=== PATIENT | female | born 1935 | race Caucasian/White ===

== ENCOUNTER 2016-06-30 11:08 | Day surgery (SDC) | payer MEDICARE, BC ==
[2016-06-22 15:39] VITALS: BMI 26.1
[~2016-06-30 11:08] MED LIST: FAMOTIDINE 20 MG/2 ML VIAL IV PRN; HYDROmorphone 1 MG/ML 1 ML SYRINGE IVP PRN; LACTATED RINGERS 1,000 ML IV SCH; LIDOCAINE 1% 20 ML VIAL (10MG/ML) FOR IV START INTRADERMA PRN; ceFAZolin 2 GM in SODIUM CHLORIDE 0.9% 100 ML IVPB ONE
--- NOTE | 2016-06-30 11:12 | XR ---
Abdomen HISTORY: Calculus of ureter Frontal view of the abdomen correlated to prior exam I've May 2016 Double-J left ureteral stent is in place as on prior exam. Calcifications are again scattered over th e right kidney, left kidney, within the pelvis and in the right paraspinal location. There may been i nterval lithotripsy, large calculus at the level of the distal left ureter is no longer seen, only sm all residual calcification is present measuring approximately 3 to 4 mm at the level of the distal le ft ureter. Surgical clips in the upper abdomen. IMPRESSION: Interval follow-up is described.
[2016-06-30] MEDS ORDERED: LACTATED RINGERS 1,000 ML IV ONE (11:14)
[2016-06-30 11:33] VITALS: RESP 16
[2016-06-30] MEDS ORDERED: SODIUM CHLORIDE 0.9% 100 ML BAG IV ONE (12:58)
[2016-06-30] MEDS ORDERED: ePHEDrine 50 MG/ML 1 ML AMP ONE (12:58)
[2016-06-30] MEDS ORDERED: PROPOFOL 10 MG/ML 20 ML VIAL IV ONE (12:58)
[2016-06-30] MEDS ORDERED: MIDAZOLAM 2 MG/2 ML VIAL ONE (12:58)
[2016-06-30] MEDS ORDERED: ceFAZolin 1,000 MG VIAL ONE (12:58)
[2016-06-30] MEDS ORDERED: fentaNYL (PF) 50 MCG/ML 2 ML AMP ONE (12:58)
[2016-06-30] MEDS ORDERED: LIDOCAINE 1% INJ 10MG/ML (20 ML MDV) ONE (12:58)
[2016-06-30] MEDS ORDERED: GLYCOPYRROLATE 0.2 MG/ML 2 ML VIAL ONE (12:58)
[2016-06-30] MEDS ORDERED: SUCCINYLCHOLINE CHLORIDE 100 MG/5 ML SYR IV ONE (12:58)
[2016-06-30 13:51] VITALS: TEMP 98.1
--- NOTE | 2016-06-30 14:17 | P.OP ---
Date of Procedure: 06/30/16 Preoperative Diagnosis: Left ureteral calculus, left renal calculus Postoperative Diagnosis: Left ureteral calculus, passed. Procedure(s) Performed: Cystoscopy, left ureteral stent removal, left ureteroscopy Anesthesia: DO Surgeon: Parth Chavez Estimated Blood Loss (ml): 0 IV fluids (ml): 500 Pathology: none sent Condition: stable Disposition: PACU Indications for Procedure: She was recently hospitalized with Escherichia coli sepsis of urinary origin, and was found to have 2 obstructing left distal ureteral calculi. She underwent placement of a left ureteral stent, at which time only one calculus was seen. A repeat urine culture was sent. She will undergo ureteroscopic removal of her calculi. Operative Findings: The patient was taken to the operating room and placed in the dorsolithotomy position, with legs supported in Fernando stirrups. The external genitalia was prepped and draped sterilely. The 30 lens was used to introduce the 22-Samoan Stortz cystoscopic sheath through the urethra and into the bladder under direct vision. The bladder was examined in its entirety. No tumors or foreign bodies were seen. Grasping forceps were used to grasp the distal end of the left ureteral stent, which was removed along with the cystoscope. The [facility] semirigid ureteroscope was advanced into the bladder. The left ureteral orifice was cannulated, and the ureteroscope was advanced up to the left proximal ureter. No calculi were seen. The ureter was inspected as the ureteroscope was withdrawn and removed. Next, the mini flexible Olympus ureteroscope was advanced in the bladder, and the left ureteral orifice was cannulated. The ureteroscope was advanced up to the left renal pelvis under direct vision. Each calyx was examined. No calculi were seen. Within several calyces, calcifications were noted which were adherent to the mucosa. The ureteroscope was slowly withdrawn under direct vision, and the procedure was terminated. The patient tolerated the procedure well and was taken to the recovery room in stable condition. Description of Procedure: The patient was taken to the operating room and placed in the dorsolithotomy position, with legs supported in Fernando stirrups. The external genitalia was prepped and draped sterilely. The 30 lens was used to introduce the 22-Samo[place] Stortz cystoscopic sheath through the urethra and into the bladder under direct vision. The bladder was examined in its entirety. No tumors or foreign bodies were seen. Grasping forceps were used to grasp the distal end of the left ureteral stent, which was removed along with the cystoscope. The ACMI semirigid ureteroscope was advanced into the bladder. The left ureteral orifice was cannulated, and the ureteroscope was advanced up to the left proximal ureter. No calculi were seen. The ureter was inspected as the ureteroscope was withdrawn and removed. Next, the mini flexible Olympus ureteroscope was advanced in the bladder, and the left ureteral orifice was cannulated. The ureteroscope was advanced up to the left renal pelvis under direct vision. Each calyx was examined. No calculi were seen. Within several calyces, calcifications were noted which were adherent to the mucosa. The ureteroscope was slowly withdrawn under direct vision, and the procedure was terminated. The patient tolerated the procedure well and was taken to the recovery room in stable condition.
[2016-06-30 14:54] VITALS: BP 152/83; PULSE 79
== END 2016-06-30 15:12 | disposition home or self-care (01) ==
LOC: OR 11:08
PROVIDERS: ATTEND Urology
DX: N20.2 Calculus of kidney with calculus of ureter (principal); Z46.6 Encounter for fitting and adjustment of urinary device; I10 Essential (primary) hypertension; I48.91 Unspecified atrial fibrillation; Z79.01 Long term (current) use of anticoagulants; K21.9 Gastro-esophageal reflux disease without esophagitis; Z88.1 Allergy status to other antibiotic agents; Z91.040 Latex allergy status; Z80.52 Family history of malignant neoplasm of bladder; Z80.8 Family history of malignant neoplasm of other organs or systems; Z87.891 Personal history of nicotine dependence; E03.9 Hypothyroidism, unspecified
CPT/HCPCS: 74000; 52310; J2250; J0690; J2001; J3010; J0330; J2704

== ENCOUNTER → 2016-08-11 | Outpatient (CLI) | payer MEDICARE, BC ==
--- NOTE | 2016-08-11 17:00 | US ---
EXAMINATION TYPE: US kidneys/renal and bladder DATE OF EXAM: 08/11/2016 3:48 PM COMPARISON: 06/30/2016 KUB CLINICAL HISTORY: R93.4 History of Hydronephrosis. 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 No shadowing stones are evident. Right Kidney: No hydronephrosis or masses seen Left Kidney: No hydronephrosis or masses seen Bladder: wnl Bilateral Jets seen: Yes IMPRESSION: Normal bilateral renal ultrasound. Previous reported renal calcifications are not identified on the c urrent examination.
== END | disposition home or self-care (01) ==
LOC: RADUSWWP 15:31
PROVIDERS: ATTEND Urology
DX: Z09 Encounter for follow-up examination after completed treatment for conditions other than malignant neoplasm (principal); Z87.448 Personal history of other diseases of urinary system
CPT/HCPCS: 76770

== ENCOUNTER → 2016-12-07 | Outpatient (CLI) | payer MEDICARE, BC ==
--- NOTE | 2016-12-07 15:43 | US ---
EXAMINATION TYPE: US pelvis complete transvag DATE OF EXAM: 12/07/2016 COMPARISON: NONE CLINICAL HISTORY: R10.2 PELVIC PAIN. Patient states having vaginal soreness, hx of bladder incontinen ce. TECHNIQUE: Transvaginal (TV) and Transabdominal (TA) Date of LMP: PM, EXAM MEASUREMENTS: Uterus: 7.3 x 4.5 x 2.6 cm Endometrial Stripe: 0.1 cm 1. Uterus: Peripheral echogenic foci seen. Heterogenous. Anteverted. 2. Endometrium: Fluid seen within canal. Shadowing echogenic focus seen = 1.2 x 0.8 x 0.5 cm 3. Right Ovary: Obscured by overlying bowel gas 4. Left Ovary: Obscured by overlying bowel gas Spectral, color and waveform doppler imaging shows good arterial and venous flow within the ovaries ; there is no evidence for ovarian torsion. 5. Bilateral Adnexa: wnl 6. Posterior cul-de-sac: no free fluid seen Incidental finding = Posterior hypoechoic lesion seen = 0.9 x 0.8 x 0.9 cm. IMPRESSION: 1. Hypoechoic area within the posterior urinary bladder could be a ureterocele. 2. Endometrial canal fluid.
== END | disposition home or self-care (01) ==
LOC: RADUSWWP 10:04
PROVIDERS: ATTEND Obstetrics & Gynecology
DX: R10.2 Pelvic and perineal pain (principal)
CPT/HCPCS: 76830; 76856

== ENCOUNTER → 2017-01-06 | Outpatient (CLI) | payer MEDICARE, BC ==
--- NOTE | 2017-01-07 09:36 | MM ---
Reason for exam: screening (asymptomatic). Last mammogram was performed 1 year ago. History: Patient is postmenopausal and has history of high-risk lesion on a previous biopsy at age 69. Excisional biopsy of the left breast, February 19, 2005. High risk left mammotome panel of the left breast, January 08, 2005. High risk left mammotome panel of the left breast, January 08, 2005. Cyst aspiration of the right breast. Physical Findings: A clinical breast exam by your physician is recommended on an annual basis and results should be correlated with mammographic findings. MG 3D Screening Mammo W/Cad Bilateral CC and MLO view(s) were taken. Prior study comparison: January 06, 2016, bilateral MG 3d diag mammo w/cad PB. April 22, 2014, bilateral MG screening mammo w CAD. The breast tissue is heterogeneously dense. This may lower the sensitivity of mammography. Finding: There are typically benign calcifications in both breasts. There is a chronic nodularity in the right breast. No significant changes in finding since January 06, 2016 and April 22, 2014. ASSESSMENT: Benign, BI-RAD 2 RECOMMENDATION: Routine screening mammogram of both breasts in 1 year.
== END | disposition home or self-care (01) ==
LOC: RADMAMWWP 08:14
PROVIDERS: ATTEND Obstetrics & Gynecology
DX: Z12.31 Encounter for screening mammogram for malignant neoplasm of breast (principal)
CPT/HCPCS: 77063; G0202

== ENCOUNTER 2017-04-08 11:21 | Emergency (ER) | payer MEDICARE, BC ==
[2017-04-08 11:32] VITALS: RESP 18
--- NOTE | 2017-04-08 12:19 | ED ---
General Adult HPI - General Chief complaint: Fall Stated complaint: FALL FROM STEP LADDER, 2ND STEP Time Seen by Provider: 04/08/17 11:54 Source: patient, family, RN notes reviewed Mode of arrival: wheelchair Limitations: physical limitation - History of Present Illness Initial comments: Patient is a pleasant 81-year-old female presenting to the emergency department following a fall. Incident occurred yesterday around 10:30 AM. Patient was on the second foot of a stepladder cleaning the refrigerator. Patient did slip and fall. Patient did grab a hold of the door on the way down. Patient landed mostly on her back. Patient has discomfort of her back diffusely, mostly lower back. Patient does have some chronic back and neck problems. Patient denies any head injury or loss of consciousness. No headache. No extremity injury. No chest pain or dyspnea. No abdominal pain. - Related Data Home Medications Medication Instructions Recorded Confirmed Cyanocobalamin [Vitamin B-12] 1,000 mcg PO DAILY@1200 03/10/16 04/08/17 Pantoprazole Sodium [Protonix] 40 mg PO DAILY 03/10/16 04/08/17 Cholecalciferol [Vitamin D3] 1,000 unit PO DAILY@1200 04/08/17 04/08/17 Gabapentin [Neurontin] 300 mg PO HS 04/08/17 04/08/17 Levothyroxine Sodium [Synthroid] 88 mcg PO DAILY 04/08/17 04/08/17 Magnesium 200 mg PO DAILY@1200 04/08/17 04/08/17 Meloxicam [Mobic] 15 mg PO DAILY@1200 04/08/17 04/08/17 predniSONE 2.5 mg PO DAILY 04/08/17 04/08/17 Previous Rx's Medication Instructions Recorded Apixaban [Eliquis] 2.5 mg PO BID #0 tablet 06/03/16 Metoprolol Tartrate [Lopressor] 25 mg PO BID tab 06/03/16 Allergies Allergy/AdvReac Type Severity Reaction Status Date / Time adhesive Allergy Severe Rash/Hives Verified 04/08/17 11:56 latex Allergy Severe Rash/Hives Verified 04/08/17 11:56 levofloxacin [From Levaquin] AdvReac Severe Nausea & Verified 04/08/17 11:56 Vomiting & Diarrhea sulfamethoxazole AdvReac Mild Nausea & Verified 04/08/17 11:56 [From Bactrim] Vomiting trimethoprim [From Bactrim] AdvReac Mild Nausea & Verified 04/08/17 11:56 Vomiting Review of Systems ROS Statement: Those systems with pertinent positive or pertinent negative responses have been documented in the HPI. ROS Other: All systems not noted in ROS Statement are negative. Constitutional: Denies: fever Eyes: Denies: eye pain ENT: Denies: ear pain Respiratory: Denies: cough, dyspnea Cardiovascular: Denies: chest pain Endocrine: Denies: fatigue Gastrointestinal: Denies: abdominal pain Genitourinary: Denies: dysuria Musculoskeletal: Reports: back pain Skin: Denies: rash Neurological: Denies: weakness Past Medical History Past Medical History: Atrial Fibrillation Additional Past Medical History / Comment(s): History of nephrolithiasis and kidney stones, history of recurrent urine tract infections, history of E. coli septicemia back in February 2016, urinary incontinence, spinal stenosis, degenerative arthritis, chronic back pain, bilateral leg and feet pain with L side worse, varicose veins, diverticullosis/diverticulitis, previous exposure to ESBL producing E. coli from May 2015, paroxysmal to fibrillation current rhythm is sinus, hypertension, severe back pain and degenerative arthritis, chronic steroid dependence and the patient has been taking prednisone a daily basis at a dose of 10 mg. History of Any Multi-Drug Resistant Organisms: ESBL Date of last positivie culture/infection: ESBL 06/12/15 MDRO Source:: urine Past Surgical History: Breast Surgery, Cholecystectomy, Orthopedic Surgery Additional Past Surgical History / Comment(s): cystoscopy with coaptite injections x 2, lithrotripsy, hemmoroidectomy, bilateral cataract with lense implants , varicose vein surgery, D&C, L breast biopsy x 2, bilateral great toenails removed, carpal tunnel release R wrist, R knee arthroscopy, lipomas removed from L leg. Past Anesthesia/Blood Transfusion Reactions: No Reported Reaction Past Psychological History: No Psychological Hx Reported Smoking Status: Former smoker Past Alcohol Use History: Occasional Past Drug Use History: None Reported - Past Family History Brother(s) History Unknown: Yes Family Medical History: Cancer Sister(s) Family Medical History: Deep Vein Thrombosis (DVT) Additional Family Medical History / Comment(s): DVT IN GROIN Mother Family Medical History: No Reported History Father History Unknown: Yes Family Medical History: Unable to Obtain Additional Family Medical History / Comment(s): Pt did not know her biological father. General Exam Limitations: physical limitation General appearance: alert, in no apparent distress Head exam: Present: atraumatic, normocephalic Eye exam: Present: normal appearance, PERRL, EOMI ENT exam: Present: normal oropharynx Neck exam: Present: normal inspection, full ROM, other (Mild paravertebral tenderness. No vertebral tenderness to palpation.) Respiratory exam: Present: normal lung sounds bilaterally. Absent: chest wall tenderness Cardiovascular Exam: Present: regular rate, normal rhythm GI/Abdominal exam: Present: soft. Absent: tenderness Extremities exam: Present: normal inspection, full ROM. Absent: tenderness Back exam: Present: tenderness (Mild lower thoracic tenderness to palpation. Moderate lumbar spinal tenderness to palpation.), vertebral tenderness Neurological exam: Present: alert, CN II-XII intact. Absent: motor sensory deficit Expanded Sensory exam: Lower Extremity Light Touch: Normal Motor strength exam: RUE: 5, LUE: 5, RLE: 5, LLE: 5 Psychiatric exam: Present: normal affect, normal mood Skin exam: Present: normal color Course Vital Signs 04/08/17 04/08/17 04/08/17 11:26 12:31 14:11 Temperature 97.7 F 97.8 F Pulse Rate 56 L 59 L Pulse Rate [ 56 L Pulse Oximetery ] Respiratory 18 18 Rate Blood Pressure 130/65 174/79 O2 Sat by Pulse 96 98 Oximetry EKG Findings - EKG Comments: EKG Findings:: Sinus bradycardia 53. WI 186. QRS 80. QT 416. QTC 390. Normal axis. Normal QRS. Normal ST-T. Medical Decision Making - Medical Decision Making Patient reevaluated and resting comfortably in bed. Patient still refuses any pain medication or prescription. Patient and family were updated on results and plan. Case was discussed in detail with practitioner Natasha garcias for [facility]. She does recommend TLSO brace and have patient follow- up with Dr. Vargas in the beginning of the week. - Radiology Data Radiology results: image reviewed (Cervical spine and thoracic spine x-rays show degenerative changes without acute abnormality. Computed tomography scan of the lumbar spine shows L1 and L2 superior endplate fractures. No acute subluxation.) Disposition Clinical Impression: Fall, Fracture lumbar vertebra-closed Disposition: HOME SELF-CARE Condition: Stable Instructions: Fall Prevention for Older Adults (ED), Thoracolumbar Fracture (ED ) Additional Instructions: Please follow-up with Dr. Vargas with [facility] as well as her primary care physician in the beginning of the week. Limit exercise. Wear brace at all times unless showering, prescription written. No lifting. Bed rest except for meals and bathroom use through the weekend. Return for weakness , loss of control of bowel or bladder, worsening symptoms or other concerns. [id number] Tylenol if needed. Referrals: Keith Yadav MD [Primary Care Provider] - 1-2 days Time of Disposition: 14:17
--- NOTE | 2017-04-08 13:18 | CT ---
EXAMINATION TYPE: CT lumbar spine wo con DATE OF EXAM: 04/08/2017 COMPARISON: Prior lumbar spine CT 06/10/2015 HISTORY: Trauma and pain CT DLP: 634.6 mGycm Automated exposure control for dose reduction was used. An unenhanced CT of the lumbar spine was performed. Bone and soft tissue window settings are submitt ed as well as coronal and sagittal reconstructions. FINDINGS: Superior endplates of L1 and L2 shows some mild depression as compared to previous exam. No significa nt retropulsion. Bilateral nephrolithiasis is nonobstructive, however the renal collecting system on the right may be somewhat more distended than on previous exam. Small right adrenal mass is low dense and likely stable. L1-L2: Normal disc space height. No disc herniation protrusion or central stenosis. No facet joint arthropathy. No evidence for foraminal encroachment. L2-L3: Normal disc space height. No disc herniation protrusion or central stenosis. No facet joint arthropathy. No evidence for foraminal encroachment. L3-L4: Broad-based disc bulge again noted causing mild anterior mass effect on the thecal sac. L4-L5: Similar to prior exam. There is posterior extension of broad-based disc bulge, hypertrophic ch elida of the facets, ligamentum flavum results in moderate central canal stenosis. Disc complex causes foraminal encroachment. Loss of disc height present with vacuum phenomenon seen. L5-S1: Stable, posterior extension of endplate disc complex causes anterior mass effect on the thecal sac and may contact the anterior S1 nerve roots, circumferential extension causes some foraminal enc roachment. Vacuum phenomenon and loss of disc height present. IMPRESSION: No acute subluxation. Superior endplate fractures L1 and L2, bone scan or MRI could be performed to a ssess for acuity. Bilateral nephrolithiasis, difficult to exclude ureteral calculus. Stable degenera tive disc disease. Spinal stenosis greatest at L4-5.
--- NOTE | 2017-04-08 13:22 | XR ---
Cervical spine HISTORY: Pain 5 views of the cervical spine Correlation to prior cervical spine 12/10/2015 Multilevel spondylosis is present. Loss of disc height present at the intervertebral levels. Bone min eralization is reduced. There is near anatomic alignment, minimal retrolisthesis grade 1 C3-4. Multil evel facet arthropathy changes are present. Prevertebral soft tissues are normal. There may be a spin al curvature. There is some foraminal encroachment on the right at C4-5, C5-6. IMPRESSION: Degenerative disc disease.
--- NOTE | 2017-04-08 13:24 | XR ---
EXAMINATION TYPE: XR thoracic spine 2V DATE OF EXAM: 04/08/2017 CLINICAL HISTORY: Fall with mid back pain. TECHNIQUE: Frontal, lateral, and swimmer's view of thoracic spine are obtained. COMPARISON: None. FINDINGS: There is a slight dextroscoliotic curvature of the upper to mid thoracic spine, nonrotatory . Thoracic spine show satisfactory alignment without evidence of acute fracture or dislocation. Multi level moderate degenerative changes are appreciated of the thoracic spine and visualized cervical spi ne are demonstrated as intervertebral disc space narrowing, endplate sclerosis and flowing anterior o steophytes. Vertebral body heights and disc space heights are preserved. Visualized ribs are unremar kable. Visualized lungs are well aerated. Surgical clips are seen within the upper abdomen. IMPRESSION: No acute fracture or dislocation is seen in the thoracic spine. Moderate multilevel dege nerative changes of the thoracic spine and visualized cervical spine.
[2017-04-08 14:14] VITALS: BP 174/79; PULSE 59; TEMP 97.8
== END 2017-04-08 14:47 | disposition home or self-care (01) ==
LOC: EC 11:21
DX: S32.019A Unspecified fracture of first lumbar vertebra, initial encounter for closed fracture (principal); S32.029A Unspecified fracture of second lumbar vertebra, initial encounter for closed fracture; M48.061 Spinal stenosis, lumbar region without neurogenic claudication; M47.812 Spondylosis without myelopathy or radiculopathy, cervical region; M51.34 Other intervertebral disc degeneration, thoracic region; R00.1 Bradycardia, unspecified; N20.2 Calculus of kidney with calculus of ureter; I48.91 Unspecified atrial fibrillation; Z90.49 Acquired absence of other specified parts of digestive tract; Z88.1 Allergy status to other antibiotic agents; Z88.2 Allergy status to sulfonamides; Z91.040 Latex allergy status; Z91.048 Other nonmedicinal substance allergy status; Z79.899 Other long term (current) drug therapy; Z87.891 Personal history of nicotine dependence; W11.XXXA Fall on and from ladder, initial encounter
CPT/HCPCS: 72050; 72070; 72131; 93005; 99284

== ENCOUNTER → 2017-04-11 | Outpatient (CLI) | payer MEDICARE, BC ==
--- NOTE | 2017-04-11 13:35 | XR ---
EXAMINATION TYPE: XR KUB DATE OF EXAM: 04/11/2017 COMPARISON: 06/30/2016 HISTORY: Renal calculus TECHNIQUE: One view abdominal series FINDINGS: Left-sided ureteral stent no longer seen. There are 2 calculi overlying the right kidney the largest measuring 13 mm. Surgical change in the abdomen noted. Degenerative change of the spine. Bowel gas pa ttern nonspecific. Within the pelvis there are stable appearing calcifications in at least one of which may represent a bladder calculus. IMPRESSION: 1. Stable right-sided renal calculi. 2. No definite left-sided renal calculi. 4. Nonspecific pelvic calcifications. Possibility of a bladder calculus in the differential diagnosis .
--- NOTE | 2017-04-11 15:17 | US ---
EXAMINATION TYPE: US kidneys/renal and bladder DATE OF EXAM: 04/11/2017 COMPARISON: NONE CLINICAL HISTORY: 81-year-old female Calculus of the kidney N20.0. TECHNIQUE: Multiple sonographic images of the kidneys and bladder were obtained. 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 There is an echogenic focus in the lower po le measuring 5 mm. Left Kidney: 9.7 x 5.1 x 4.3 cm without hydronephrosis. The lower pole is limited due to shadowing fr om bowel gas. There is a 3 mm echogenic focus in the upper pole. No gross abnormality of the partially urine distended bladder. IMPRESSION: 1. No hydronephrosis. 2. An echogenic focus within each kidney measuring up to 5 mm. Nonobstructive calculi are suggested.
== END | disposition home or self-care (01) ==
LOC: RADUSWWP 04-08 14:51
PROVIDERS: ATTEND Urology
DX: N20.0 Calculus of kidney (principal)
CPT/HCPCS: 74000; 76770

== ENCOUNTER 2017-08-08 11:13 | Emergency (ER) | payer MEDICARE, BC ==
[2017-08-08] MEDS ORDERED: SODIUM CHLORIDE 0.9% 1,000 ML IV STA (13:02)
--- NOTE | 2017-08-08 13:13 | ED ---
General Adult HPI <Virgilio Decker J - Last Filed: 08/08/17 16:53> - General Source: patient, RN notes reviewed Mode of arrival: wheelchair Limitations: no limitations <Wagner Good - Last Filed: 08/08/17 17:12> - General Chief complaint: Recheck/Abnormal Lab/Rx Stated complaint: Dx UTI, hands swelling Time Seen by Provider: 08/08/17 12:37 - History of Present Illness Initial comments: Patient 81-year-old female who presents emergency room today with multiple complaints. She does not that she's been experiencing some right-sided abdominal pain over the last week. Doesn't that that's with family doctor last week was diagnosed with a urinary tract infection. She states she was called 2 days later and told that they had to change the antibiotics from Keflex and she is currently on cefuroxime. She's been on this medication for the past 2 days. She states is been no improvement of the symptoms of pain on the right side of the abdomen. She states she was advised complete emergency room today. She does admit that she's noticed some swelling down into the right hand. She states that she has had some sensitivity and tenderness locally to this area there was no internal trauma. She states she had similar symptoms in the past with a urinary tract infection and she was admitted to hospital and have swelling to the right arm and legs at that time. Patient denies any other complaints or symptoms currently. Patient is on Eliquis due to history of A. fib. Patient denies any recent fever, chills, shortness of breath, chest pain, back pain, nausea or vomiting, numbness or tingling, dysuria or hematuria, constipation or diarrhea, headaches or visual changes, or any other complaints. (Wagner Good) - Related Data Home Medications Medication Instructions Recorded Confirmed Cyanocobalamin [Vitamin B-12] 1,000 mcg PO DAILY 03/10/16 08/08/17 Cholecalciferol [Vitamin D3] 1,000 unit PO DAILY 04/08/17 08/08/17 Levothyroxine Sodium [Synthroid] 88 mcg PO DAILY 04/08/17 08/08/17 Cefuroxime [Ceftin] 250 mg PO BID 08/08/17 08/08/17 Magnesium Chloride [Slow Mag] 64 mg PO DAILY 08/08/17 08/08/17 Omeprazole [PriLOSEC] 20 mg PO DAILY 08/08/17 08/08/17 Pregabalin [Lyrica] 50 mg PO BID 08/08/17 08/08/17 Previous Rx's Medication Instructions Recorded Apixaban [Eliquis] 2.5 mg PO BID #0 tablet 06/03/16 Metoprolol Tartrate [Lopressor] 25 mg PO BID tab 06/03/16 Hydrocodone/Acetaminophen [[place]e 1 each PO Q6HR PRN #12 tab 08/08/17 5-325] Allergies Allergy/AdvReac Type Severity Reaction Status Date / Time adhesive Allergy Severe Rash/Hives Verified 08/08/17 12:53 latex Allergy Severe Rash/Hives Verified 08/08/17 12:53 levofloxacin [From Levaquin] AdvReac Severe Nausea & Verified 08/08/17 12:53 Vomiting & Diarrhea sulfamethoxazole AdvReac Mild Nausea & Verified 08/08/17 12:53 [From Bactrim] Vomiting trimethoprim [From Bactrim] AdvReac Mild Nausea & Verified 08/08/17 12:53 Vomiting Review of Systems ROS Other: All systems not noted in ROS Statement are negative. <Virgilio Decker - Last Filed: 08/08/17 16:53> ROS Other: All systems not noted in ROS Statement are negative. <Wagner Good - Last Filed: 08/08/17 17:12> ROS Statement: Those systems with pertinent positive or pertinent negative responses have been documented in the HPI. Past Medical History Past Medical History: Atrial Fibrillation Additional Past Medical History / Comment(s): History of nephrolithiasis and kidney stones, history of recurrent urine tract infections, history of E. coli septicemia back in February 2016, urinary incontinence, spinal stenosis, degenerative arthritis, chronic back pain, bilateral leg and feet pain with L side worse, varicose veins, diverticullosis/diverticulitis, previous exposure to ESBL producing E. coli from May 2015, paroxysmal to fibrillation current rhythm is sinus, hypertension, severe back pain and degenerative arthritis, chronic steroid dependence and the patient has been taking prednisone a daily basis at a dose of 10 mg. History of Any Multi-Drug Resistant Organisms: ESBL Date of last positivie culture/infection: ESBL 06/12/15 MDRO Source:: urine Past Surgical History: Breast Surgery, Cholecystectomy, Orthopedic Surgery Additional Past Surgical History / Comment(s): cystoscopy with coaptite injections x 2, lithrotripsy, hemmoroidectomy, bilateral cataract with lense implants , varicose vein surgery, D&C, L breast biopsy x 2, bilateral great toenails removed, carpal tunnel release R wrist, R knee arthroscopy, lipomas removed from L leg. Past Anesthesia/Blood Transfusion Reactions: No Reported Reaction Past Psychological History: No Psychological Hx Reported Smoking Status: Former smoker Past Alcohol Use History: Occasional Past Drug Use History: None Reported - Past Family History Brother(s) History Unknown: Yes Family Medical History: Cancer Sister(s) Family Medical History: Deep Vein Thrombosis (DVT) Additional Family Medical History / Comment(s): DVT IN GROIN Mother Family Medical History: No Reported History Father History Unknown: Yes Family Medical History: Unable to Obtain Additional Family Medical History / Comment(s): Pt did not know her biological father. <Wagner Good - Last Filed: 08/08/17 17:12> General Exam <Virgilio Decker - Last Filed: 08/08/17 16:53> Limitations: no limitations <Wagner Good - Last Filed: 08/08/17 17:12> - General Exam Comments Initial Comments: General: The patient is awake and alert, in no distress, and does not appear acutely ill. Eye: Pupils are equal, round and reactive to light, extra-ocular movements are intact. No nystagmus. There is normal conjunctiva bilaterally. No signs of icterus. Ears, nose, mouth and throat: There are moist mucous membranes and no oral lesions. Neck: The neck is supple, there is no tenderness or JVD. Cardiovascular: There is a regular rate and rhythm. No murmur, rub or gallop is appreciated. Respiratory: Lungs are clear to auscultation, respirations are non-labored, breath sounds are equal. No wheezes, stridor, rales, or rhonchi. Gastrointestinal: Normal appearance of the abdomen. Normal bowel sounds. Abdomen is soft on palpation with tenderness in the right lower quadrant. No rebound tenderness. Mild both left and right CVA tenderness. No guarding. Musculoskeletal: Normal ROM, no tenderness. Strength 5/5. Sensation intact. Pulses equal bilaterally 2+. Neurological: A&O x 3. CN II-XII intact, There are no obvious motor or sensory deficits. Coordination appears grossly intact. Speech is normal. Skin: Skin is warm and dry and no rashes or lesions are noted. Psychiatric: Cooperative, appropriate mood & affect, normal judgment. (Wagner Good) Vital Signs 08/08/17 08/08/17 11:29 15:42 Temperature 99.0 F Pulse Rate 61 68 Respiratory 18 16 Rate Blood Pressure 141/96 143/63 O2 Sat by Pulse 97 97 Oximetry Medical Decision Making - Lab Data Result diagrams: 08/08/17 13:21 08/08/17 13:21 <Virgilio Decker - Last Filed: 08/08/17 16:53> - Lab Data Result diagrams: 08/08/17 13:21 08/08/17 13:21 <Wagner Good - Last Filed: 08/08/17 17:12> - Medical Decision Making The patient was seen and examined. All diagnostics were reviewed. Case is discussed with the PA and I agree with the findings as documented. (Virgilio Decker) Patient's x-ray reviewed and shows degenerative changes no acute abnormality. Patient's CT of the abdomen and pelvis shows most likely a recently passed kidney stone. Patient does admit that she's had stones in the past and this did feel somewhat similar. Patient's urinalysis shows 7 white cells at this time. Patient's remaining labs been reviewed. Negative lactic acid. No elevated white count. No fever here in the emergency room. Patient will be continued on cefuroxime in for infection. Feels comfortable being discharged. Her right hand has been splinted in a short arm OCL volar splint. Neurovascular rechecked and intact. Patient advised follow-up with the next 2 days with family doctor return here to the emergency room if any symptoms increase or worsen. (Wagner Good) - Lab Data Lab Results 08/08/17 08/08/17 08/08/17 Range/Units 13:21 13:21 13:21 WBC 6.4 (3.8-10.6) k/uL RBC 4.60 (3.80-5.40) m/uL Hgb 12.3 (11.4-16.0) gm/dL Hct 40.2 (34.0-46.0) % MCV 87.4 (80.0-100.0) fL MCH 26.7 (25.0-35.0) pg MCHC 30.5 L (31.0-37.0) g/dL RDW 13.8 (11.5-15.5) % Plt Count 266 (150-450) k/uL Neutrophils % 63 % Lymphocytes % 25 % Monocytes % 9 % Eosinophils % 2 % Basophils % 1 % Neutrophils # 4.0 (1.3-7.7) k/uL Lymphocytes # 1.6 (1.0-4.8) k/uL Monocytes # 0.5 (0-1.0) k/uL Eosinophils # 0.1 (0-0.7) k/uL Basophils # 0.0 (0-0.2) k/uL Hypochromasia Slight ESR 62 H (0-20) mm/hr PT (9.0-12.0) sec INR (<1.2) APTT (22.0-30.0) sec Sodium 140 (137-145) mmol/L Potassium 4.4 (3.5-5.1) mmol/L Chloride 100 (98-107) mmol/L Carbon Dioxide 28 (22-30) mmol/L Anion Gap 12 mmol/L BUN 23 H (7-17) mg/dL Creatinine 0.70 (0.52-1.04) mg/dL Est GFR (MDRD) Af Amer >60 (>60 ml/min/1.73 sqM) Est GFR (MDRD) Non-Af >60 (>60 ml/min/1.73 sqM) Glucose 83 (74-99) mg/dL Plasma Lactic Acid Frank 0.8 (0.7-2.0) mmol/L Uric Acid 4.0 (3.7-7.4) mg/dL Calcium 10.0 (8.4-10.2) mg/dL Total Bilirubin 0.9 (0.2-1.3) mg/dL AST 26 (14-36) U/L ALT 16 (9-52) U/L Alkaline Phosphatase 135 H (38-126) U/L Total Protein 6.9 (6.3-8.2) g/dL Albumin 3.9 (3.5-5.0) g/dL Urine Color Urine Appearance (Clear) Urine pH (5.0-8.0) Ur Specific Hope (1.001-1.035) Urine Protein (Negative) Urine Glucose (UA) (Negative) Urine Ketones (Negative) Urine Blood (Negative) Urine Nitrite (Negative) Urine Bilirubin (Negative) Urine Urobilinogen (<2.0) mg/dL Ur Leukocyte Esterase (Negative) Urine RBC (0-5) /hpf Urine WBC (0-5) /hpf Ur Squamous Epith Cells (0-4) /hpf Urine Mucus (None) /hpf 08/08/17 08/08/17 Range/Units 13:21 13:21 WBC (3.8-10.6) k/uL RBC (3.80-5.40) m/uL Hgb (11.4-16.0) gm/dL Hct (34.0-46.0) % MCV (80.0-100.0) fL MCH (25.0-35.0) pg MCHC (31.0-37.0) g/dL RDW (11.5-15.5) % Plt Count (150-450) k/uL Neutrophils % % Lymphocytes % % Monocytes % % Eosinophils % % Basophils % % Neutrophils # (1.3-7.7) k/uL Lymphocytes # (1.0-4.8) k/uL Monocytes # (0-1.0) k/uL Eosinophils # (0-0.7) k/uL Basophils # (0-0.2) k/uL Hypochromasia ESR (0-20) mm/hr PT 10.6 (9.0-12.0) sec INR 1.1 (<1.2) APTT 27.8 (22.0-30.0) sec Sodium (137-145) mmol/L Potassium (3.5-5.1) mmol/L Chloride (98-107) mmol/L Carbon Dioxide (22-30) mmol/L Anion Gap mmol/L BUN (7-17) mg/dL Creatinine (0.52-1.04) mg/dL Est GFR (MDRD) Af Amer (>60 ml/min/1.73 sqM) Est GFR (MDRD) Non-Af (>60 ml/min/1.73 sqM) Glucose (74-99) mg/dL Plasma Lactic Acid Frank (0.7-2.0) mmol/L Uric Acid (3.7-7.4) mg/dL Calcium (8.4-10.2) mg/dL Total Bilirubin (0.2-1.3) mg/dL AST (14-36) U/L ALT (9-52) U/L Alkaline Phosphatase (38-126) U/L Total Protein (6.3-8.2) g/dL Albumin (3.5-5.0) g/dL Urine Color Light Yellow Urine Appearance Clear (Clear) Urine pH 6.0 (5.0-8.0) Ur Specific Hope 1.010 (1.001-1.035) Urine Protein Negative (Negative) Urine Glucose (UA) Negative (Negative) Urine Ketones Negative (Negative) Urine Blood Negative (Negative) Urine Nitrite Negative (Negative) Urine Bilirubin Negative (Negative) Urine Urobilinogen <2.0 (<2.0) mg/dL Ur Leukocyte Esterase Trace H (Negative) Urine RBC 1 (0-5) /hpf Urine WBC 7 H (0-5) /hpf Ur Squamous Epith Cells 1 (0-4) /hpf Urine Mucus Rare H (None) /hpf Disposition <Virgilio Decker - Last Filed: 08/08/17 16:53> Time of Disposition: 17:12 <Wagner Good - Last Filed: 08/08/17 17:12> Clinical Impression: UTI (urinary tract infection), Hand swelling Disposition: HOME SELF-CARE Condition: Good Instructions: Urinary Tract Infection in Women (ED) Additional Instructions: Please follow-up the family doctor in the next 2 days. Please see splinted until follow-up appointment in 2 days. Please continue to ice elevate the affected area. Please return to the emergency room symptoms increase or worsen appropriate concerns. Prescriptions: Hydrocodone/Acetaminophen [Biscoe 5-325] 1 each PO Q6HR PRN #12 tab PRN Reason: Pain Referrals: Keith Yadav MD [Primary Care Provider] - 1-2 days
[2017-08-08 13:36] LABS: Basophils % (A) 1 %; Eosinophils # (A) 0.1 k/uL (0-0.7); Eosinophils % (A) 2 %; HCT 40.2 % (34.0-46.0); HGB 12.3 gm/dL (11.4-16.0); Hypochromasia Slight; Lymphocytes # (A) 1.6 k/uL (1.0-4.8); Lymphocytes % (A) 25 %; MCH 26.7 pg (25.0-35.0); MCHC 30.5 g/dL (31.0-37.0); MCV 87.4 fL (80.0-100.0); Mean Platelet Volume 7.6; Monocytes # (A) 0.5 k/uL (0-1.0); Monocytes % (A) 9 %; Neutrophils % (A) 63 %; Platelet Count 266 k/uL (150-450); RDW 13.8 % (11.5-15.5); WBC 6.4 k/uL (3.8-10.6)
[2017-08-08 13:46] LABS: ALT 16 U/L (9-52); AST 26 U/L (14-36); Albumin 3.9 g/dL (3.5-5.0); Alkaline Phosphatase 135 U/L (38-126); Anion Gap 12 mmol/L; Blood Urea Nitrogen 23 mg/dL (7-17); Carbon Dioxide 28 mmol/L (22-30); Chloride 100 mmol/L (98-107); Glucose 83 mg/dL (74-99); Potassium 4.4 mmol/L (3.5-5.1); Sodium 140 mmol/L (137-145); Total Bilirubin 0.9 mg/dL (0.2-1.3); Total Protein 6.9 g/dL (6.3-8.2)
[2017-08-08 13:52] LABS: Appearance,Urine Clear (Clear); Bilirubin,Urine Negative (Negative); Blood,Urine Negative (Negative); Color,Urine Light Yellow; Glucose,Urine (UA) Negative (Negative); INR 1.1 (<1.2); Ketones,Urine Negative (Negative); Leukocyte Esterase,Urine Trace (Negative); Mucus,Urine Rare /hpf; Nitrite,Urine Negative (Negative); Partial Thromboplastin Time 27.8 sec (22.0-30.0); Protein,Urine Negative (Negative); Prothrombin Time 10.6 sec (9.0-12.0); RBC,Urine 1 /hpf (0-5); Squamous Epithelial Cell,Urine 1 /hpf (0-4); Urobilinogen,Urine <2.0 mg/dL (<2.0); WBC,Urine 7 /hpf (0-5)
[2017-08-08 15:00] LABS: Erythrocyte Sedimentation Rate 62 mm/hr (0-20)
[2017-08-08] MEDS ORDERED: RX INFO: IV CONTRAST WAS GIVEN 1 EACH MISC MISCELLANE PRN (15:16)
[2017-08-08] MEDS ORDERED: methylPREDNISolone SOD SUCCI 125 MG/2 ML VIAL IV STA (15:17)
[2017-08-08] MEDS ORDERED: KETOROLAC 30 MG/ML 1 ML VIAL IVP STA (15:17)
[2017-08-08 15:42] VITALS: RESP 16
--- NOTE | 2017-08-08 16:29 | CT ---
EXAMINATION TYPE: CT abdomen pelvis w con DATE OF EXAM: 08/08/2017 COMPARISON: NONE INDICATION: Recent diagnosis UTI. Right sided abdominal pain. DLP: 1167 mGycm, Automated exposure control for dose reduction was used. CONTRAST: 100 mL of Omnipaque 300. Study performed without Oral Contrast TECHNIQUE: Axial images were obtained from above the diaphragm to the pubic rami in the axial plane a t 5 mm thick sections. Reconstructed images are reviewed on the computer in the coronal plane. FINDINGS: Limited CT sections are obtained the lung bases. Small amount of pneumonitis changes within the ling janett.. CT ABDOMEN: Liver: Normal Spleen: Normal Pancreas: Normal Adrenal glands: Right adrenal gland is thickened at 1.6 cm. Left adrenal gland is normal. Gallbladder: Surgically absent Kidneys: No masses are evident. No hydronephrosis is present. No cysts are present. Calcifications are within the inferior poles bilateral kidneys measuring 0.7 to 0.8 cm at the inferior pole right k idney and measuring 0.5 cm at the inferior pole left kidney with additional punctate calcifications i n the mid portions of the kidneys. No obstruction is evident. Aorta: Vascular calcification is within the aorta. Inferior vena cava: Normal. CT PELVIS: Loops of bowel within the abdomen and pelvis are normal. There are loops of bowel which are incom pletely distended or lack oral contrast limiting their evaluation. Appendix: Normal as visualized. Urinary bladder: There is a 0.6 cm calcification at the inferior urinary bladder may be a recently pa ssed ureteral stone. Calcifications. Inferior to the urinary bladder. Genitourinary structures: Uterus is unremarkable. Ovaries are not identified. Osseous structures: Superior endplate compression deformities of L1 and L2 are present. There is loss of disc height L5-S1. IMPRESSIONS: 1. Nonobstructing bilateral renal stones. 2. Calcification within the urinary bladder may represent a recent passage of a stone. 3. Calcifications inferior to the urinary bladder
--- NOTE | 2017-08-08 16:37 | XR ---
EXAMINATION TYPE: XR hand complete RT DATE OF EXAM: 08/08/2017 COMPARISON: NONE HISTORY: Pain TECHNIQUE: Three-view right hand FINDINGS: Structures appear osteopenic. This could be confirmed with bone density. This may make occu lt fracture visualization difficult. Diffuse soft tissue swelling is present. Joint spaces are preser allie. No acute fractures are evident. IMPRESSION: 1. Diffuse soft tissue swelling. 2. Follow-up exams can be performed 7-10 days from acute trauma for continued pain. 3. Osteopenia
[2017-08-08 17:24] VITALS: BP 133/58; PULSE 59; TEMP 98
== END 2017-08-08 17:41 | disposition home or self-care (01) ==
LOC: EC 11:13
DX: N39.0 Urinary tract infection, site not specified (principal); M79.89 Other specified soft tissue disorders; Z87.891 Personal history of nicotine dependence; Z87.442 Personal history of urinary calculi; Z90.49 Acquired absence of other specified parts of digestive tract; Z98.890 Other specified postprocedural states; Z79.01 Long term (current) use of anticoagulants; Z79.899 Other long term (current) drug therapy; Z88.1 Allergy status to other antibiotic agents; Z88.2 Allergy status to sulfonamides; Z91.040 Latex allergy status; Z91.048 Other nonmedicinal substance allergy status
CPT/HCPCS: 36415; 80053; 85652; 83605; 84550; 85025; 85610; 85730; 81001; 87040; 87086; 73130; 74177; 99284; 96374; 96375; 96361 ×4; J2930; J1885; Q9967; 87077; 87186

== ENCOUNTER → 2017-09-23 | Outpatient (CLI) | payer MEDICARE, BC ==
--- NOTE | 2017-09-23 15:03 | XR ---
Abdomen HISTORY: Kidney stones, N 20.0, blood in urine Frontal view of the abdomen submitted on 2 images and correlated to prior CT 08/08/2017, abdomen 04/11 Calcifications are overlying the lower pole of the right kidney, the largest measuring approximately 1 cm in greatest dimension, additional calcification immediately adjacent measures 6 mm, there may be smaller calcifications present, additional 3 or 4 at the lower pole. There is a calcification overly ing the lower pole of the left kidney measuring approximately 5 mm. Surgical clips are present in the upper abdomen. There are paraspinal calcifications also present. Calcifications are again noted with in the pelvis, one of which is likely bladder calcification. Larger calcifications may be related to the urethra as noted on prior CT. Degenerative disc changes are present in the visualized spine. Lung bases are clear. IMPRESSION: Bilateral nephrolithiasis. Bladder calculus. The additional calcifications within the pel vis felt likely to be stable, There are phleboliths in the paraspinal locations.
== END ==
LOC: RADXRMAIN 13:52
PROVIDERS: ATTEND Physician Assistant
DX: N20.0 Calculus of kidney (principal); N21.0 Calculus in bladder; I87.8 Other specified disorders of veins
CPT/HCPCS: 74018

== ENCOUNTER 2017-12-13 12:07 | Inpatient (IN) | payer MEDICARE, BC ==
[2017-12-13] MEDS ORDERED: SODIUM CHLORIDE 0.9% 1,000 ML IV STA ×2 (13:05)
[2017-12-13] MEDS ORDERED: ONDANSETRON 4 MG/2 ML VIAL IVP STA (13:05)
[2017-12-13 13:24] LABS: Appearance,Urine Cloudy (Clear); Bilirubin,Urine Negative (Negative); Blood,Urine Small (Negative); Color,Urine Yellow; Glucose,Urine (UA) Negative (Negative); Hyaline Casts,Urine 34 /lpf (0-2); Ketones,Urine Negative (Negative); Leukocyte Esterase,Urine Large (Negative); Mucus,Urine Occasional /hpf; Nitrite,Urine Negative (Negative); Protein,Urine Trace (Negative); RBC,Urine 18 /hpf (0-5); Specific Gravity,Urine 1.013 (1.001-1.035); Squamous Epithelial Cell,Urine 2 /hpf (0-4); Urobilinogen,Urine <2.0 mg/dL (<2.0); WBC,Urine 53 /hpf (0-5)
[2017-12-13 13:59] LABS: Basophils % (A) 0 %; Eosinophils # (A) 0.9 k/uL (0-0.7); Eosinophils % (A) 15 %; HCT 34.8 % (34.0-46.0); HGB 11.3 gm/dL (11.4-16.0); Lymphocytes # (A) 0.9 k/uL (1.0-4.8); Lymphocytes % (A) 14 %; MCH 27.7 pg (25.0-35.0); MCHC 32.6 g/dL (31.0-37.0); MCV 84.9 fL (80.0-100.0); Mean Platelet Volume 7.7; Monocytes # (A) 0.3 k/uL (0-1.0); Monocytes % (A) 4 %; Neutrophils # (A) 4.2 k/uL (1.3-7.7); Neutrophils % (A) 65 %; Platelet Count 258 k/uL (150-450); RBC 4.09 m/uL (3.80-5.40); RDW 14.7 % (11.5-15.5); WBC 6.4 k/uL (3.8-10.6)
[2017-12-13 14:06] LABS: INR 1.1 (<1.2); Prothrombin Time 10.4 sec (9.0-12.0)
[2017-12-13 14:07] LABS: Albumin 3.3 g/dL (3.5-5.0); Calcium 8.8 mg/dL (8.4-10.2); Partial Thromboplastin Time 26.3 sec (22.0-30.0); Potassium 4.3 mmol/L (3.5-5.1); Total Bilirubin 0.5 mg/dL (0.2-1.3); Total Protein 5.6 g/dL (6.3-8.2)
--- NOTE | 2017-12-13 14:24 | XR ---
EXAMINATION TYPE: XR KUB DATE OF EXAM: 12/13/2017 2:11 PM CLINICAL HISTORY: Abdominal pain, fever, headache and nausea. Currently being treated for a urinary tract infection. TECHNIQUE: Single supine KUB image of the abdomen is obtained. COMPARISON: 08/08/2017 CT and KUB dated 04/11/2017. FINDINGS: Surgical clips are noted within the gallbladder fossa and left upper abdomen. There are dimple culi within the right kidney measuring 1.0 cm and 7 mm appearing to be within the midpole as seen on the prior exam of 07/29/2017 the previously seen 5 mm calculus of the left kidney is not identified on the current examination and could be obscured by overlying bowel gas. No calcifications are seen allyson g the courses of the ureters. Calcifications inferior to the urinary bladder as seen on the prior CT are redemonstrated. Phleboliths are again noted within the pelvis. Scattered gas is seen in nondilate d small bowel loops. Gas and fecal material is seen in nondilated colon. There is no visceromegaly, p neumoperitoneum, or abnormal calcification appreciated. The lung bases are clear and the osseous stru ctures are intact. IMPRESSION: 1. Nonobstructive bowel gas pattern. 2. Similar-appearing right renal calculi in comparison to the exam of 09/23/2017.
[2017-12-13] MEDS ORDERED: cefTRIAXone IN SWFI 1,000 MG/10 ML SYRINGE IVP STA ×2 (14:30→15:58)
--- NOTE | 2017-12-13 14:44 | ED ---
Recheck HPI - General Chief Complaint: Recheck/Abnormal Lab/Rx Stated Complaint: UTI Time Seen by Provider: 12/13/17 12:36 Source: patient, RN notes reviewed, old records reviewed Mode of arrival: ambulatory Limitations: no limitations - History of Present Illness Initial Comments: Patient's an 82-year-old female presents emergency Department chief complaint of dysuria, polyuria. She reports she's been treated for urinary tract infections and has been having kidney problems since June. She was started on Macrobid 4 days ago. She reports that since taking his antibiotic she's been having dizziness, diarrhea and headaches. She states that she's been having fevers and chills. Fever yesterday of 101. She's been taking Motrin and Tylenol keep her fever is down. Patient relates that she did have stents placed in her ureters but she states that she felt like she has not passed stones. She presents today with worsening bilateral back pain. Patient reports she try to call her urologist Dr. Win was unable to get a hold of him. - Related Data Home Medications Medication Instructions Recorded Confirmed Cyanocobalamin [Vitamin B-12] 1,000 mcg PO DAILY 03/10/16 12/13/17 Cholecalciferol [Vitamin D3] 1,000 unit PO DAILY 04/08/17 12/13/17 Levothyroxine Sodium [Synthroid] 88 mcg PO DAILY 04/08/17 12/13/17 Omeprazole [PriLOSEC] 20 mg PO DAILY 08/08/17 12/13/17 Pregabalin [Lyrica] 50 mg PO BID 08/08/17 12/13/17 Magnesium Oxide [Mag-Ox] 500 mg PO DAILY@1200 12/13/17 12/13/17 Meloxicam [Mobic] 15 mg PO DAILY 12/13/17 12/13/17 Nitrofurantoin Monohyd/M-Cryst 100 mg PO Q12HR 12/13/17 12/13/17 [Macrobid] Previous Rx's Medication Instructions Recorded Apixaban [Eliquis] 2.5 mg PO BID #0 tablet 06/03/16 Metoprolol Tartrate [Lopressor] 25 mg PO BID tab 06/03/16 Allergies Allergy/AdvReac Type Severity Reaction Status Date / Time adhesive Allergy Severe Rash/Hives Verified 12/13/17 12:37 latex Allergy Severe Rash/Hives Verified 12/13/17 12:37 levofloxacin [From Levaquin] AdvReac Severe Nausea & Verified 12/13/17 12:37 Vomiting & Diarrhea sulfamethoxazole AdvReac Mild Nausea & Verified 12/13/17 12:37 [From Bactrim] Vomiting trimethoprim [From Bactrim] AdvReac Mild Nausea & Verified 12/13/17 12:37 Vomiting Review of Systems ROS Statement: Those systems with pertinent positive or pertinent negative responses have been documented in the HPI. ROS Other: All systems not noted in ROS Statement are negative. Past Medical History Past Medical History: Atrial Fibrillation Additional Past Medical History / Comment(s): History of nephrolithiasis and kidney stones, history of recurrent urine tract infections, history of E. coli septicemia back in February 2016, urinary incontinence, spinal stenosis, degenerative arthritis, chronic back pain, bilateral leg and feet pain with L side worse, varicose veins, diverticullosis/diverticulitis, previous exposure to ESBL producing E. coli from May 2015, paroxysmal to fibrillation current rhythm is sinus, hypertension, severe back pain and degenerative arthritis, chronic steroid dependence and the patient has been taking prednisone a daily basis at a dose of 10 mg. History of Any Multi-Drug Resistant Organisms: ESBL Date of last positivie culture/infection: ESBL 06/12/15 MDRO Source:: urine Past Surgical History: Breast Surgery, Cholecystectomy, Orthopedic Surgery Additional Past Surgical History / Comment(s): cystoscopy with coaptite injections x 2, lithrotripsy, hemmoroidectomy, bilateral cataract with lense implants , varicose vein surgery, D&C, L breast biopsy x 2, bilateral great toenails removed, carpal tunnel release R wrist, R knee arthroscopy, lipomas removed from L leg. Past Anesthesia/Blood Transfusion Reactions: No Reported Reaction Past Psychological History: No Psychological Hx Reported Smoking Status: Former smoker Past Alcohol Use History: Occasional Past Drug Use History: None Reported - Past Family History Brother(s) History Unknown: Yes Family Medical History: Cancer Sister(s) Family Medical History: Deep Vein Thrombosis (DVT) Additional Family Medical History / Comment(s): DVT IN GROIN Mother Family Medical History: No Reported History Father History Unknown: Yes Family Medical History: Unable to Obtain Additional Family Medical History / Comment(s): Pt did not know her biological father. General Exam - General Exam Comments Initial Comments: This patient's an 82-year-old female. Alert and oriented. No significant distress. Limitations: no limitations General appearance: alert, in no apparent distress Head exam: Present: atraumatic, normocephalic, normal inspection Eye exam: Present: normal appearance, PERRL, EOMI. Absent: scleral icterus, conjunctival injection, periorbital swelling ENT exam: Present: normal exam, mucous membranes moist Neck exam: Present: normal inspection Respiratory exam: Present: normal lung sounds bilaterally. Absent: respiratory distress, wheezes, rales, rhonchi, stridor Cardiovascular Exam: Present: regular rate, normal rhythm, normal heart sounds. Absent: systolic murmur, diastolic murmur, rubs, gallop, clicks GI/Abdominal exam: Present: soft, tenderness (Suprapubic tenderness.), normal bowel sounds. Absent: distended, guarding, rebound, rigid Extremities exam: Present: normal inspection, full ROM, normal capillary refill. Absent: tenderness, pedal edema, joint swelling, calf tenderness Back exam: Present: normal inspection Psychiatric exam: Present: normal affect, normal mood Skin exam: Present: warm, dry, intact, normal color. Absent: rash Course Vital Signs 12/13/17 12/13/17 12/13/17 12:26 13:53 15:35 Temperature 98.5 F Pulse Rate 62 60 63 Respiratory 18 18 18 Rate Blood Pressure 123/72 129/61 152/68 O2 Sat by Pulse 93 L 95 96 Oximetry 12/13/17 16:22 Temperature Pulse Rate 64 Respiratory 18 Rate Blood Pressure 136/61 O2 Sat by Pulse 96 Oximetry Medical Decision Making - Medical Decision Making 82-year-old female presents today complaining of dysuria and bilateral back pain. She does see Dr. Chavez is her urologist. Recently started on Macrobid 4 days ago. Continues to have pain with urination. Urinalysis positive for infection with 53 white blood cells and red blood cells. Patient's urine culture performed on 11/29/17 shows E. coli. Resistant to Bactrim tetracycline and ampicillin. I did give Patient 2 g of Rocephin. Given IV hydration. Significant elevation of BUN/creatinine to compare to previous lab work, this could be related to diarrhea from her anabiotic. At this time Patient will be admitted to PCP with consult to urology. Family also requests further evaluation by infectious disease doctor Dr. Lovell. Discussed that this can be completed by PCP for consult. - Lab Data Result diagrams: 12/13/17 13:40 12/13/17 13:40 Lab Results 12/13/17 12/13/17 12/13/17 Range/Units 13:00 13:40 13:40 WBC 6.4 (3.8-10.6) k/uL RBC 4.09 (3.80-5.40) m/uL Hgb 11.3 L (11.4-16.0) gm/dL Hct 34.8 (34.0-46.0) % MCV 84.9 (80.0-100.0) fL MCH 27.7 (25.0-35.0) pg MCHC 32.6 (31.0-37.0) g/dL RDW 14.7 (11.5-15.5) % Plt Count 258 (150-450) k/uL Neutrophils % 65 % Lymphocytes % 14 % Monocytes % 4 % Eosinophils % 15 % Basophils % 0 % Neutrophils # 4.2 (1.3-7.7) k/uL Lymphocytes # 0.9 L (1.0-4.8) k/uL Monocytes # 0.3 (0-1.0) k/uL Eosinophils # 0.9 H (0-0.7) k/uL Basophils # 0.0 (0-0.2) k/uL PT (9.0-12.0) sec INR (<1.2) APTT (22.0-30.0) sec Sodium 140 (137-145) mmol/L Potassium 4.3 (3.5-5.1) mmol/L Chloride 103 (98-107) mmol/L Carbon Dioxide 26 (22-30) mmol/L Anion Gap 11 mmol/L BUN 49 H (7-17) mg/dL Creatinine 1.22 H (0.52-1.04) mg/dL Est GFR (CKD-EPI)AfAm 47 (>60 ml/min/1.73 sqM) Est GFR (CKD-EPI)NonAf 41 (>60 ml/min/1.73 sqM) Glucose 90 (74-99) mg/dL Calcium 8.8 (8.4-10.2) mg/dL Total Bilirubin 0.5 (0.2-1.3) mg/dL AST 26 (14-36) U/L ALT 30 (9-52) U/L Alkaline Phosphatase 97 (38-126) U/L Total Protein 5.6 L (6.3-8.2) g/dL Albumin 3.3 L (3.5-5.0) g/dL Amylase 67 (30-110) U/L Lipase 146 (23-300) U/L Urine Color Yellow Urine Appearance Cloudy H (Clear) Urine pH 5.0 (5.0-8.0) Ur Specific [place] 1.013 (1.001-1.035) Urine Protein Trace H (Negative) Urine Glucose (UA) Negative (Negative) Urine Ketones Negative (Negative) Urine Blood Small H (Negative) Urine Nitrite Negative (Negative) Urine Bilirubin Negative (Negative) Urine Urobilinogen <2.0 (<2.0) mg/dL Ur Leukocyte Esterase Large H (Negative) Urine RBC 18 H (0-5) /hpf Urine WBC 53 H (0-5) /hpf Ur Squamous Epith Cells 2 (0-4) /hpf Hyaline Casts 34 H (0-2) /lpf Urine Mucus Occasional H (None) /hpf //18 Range/Units 13:40 WBC (3.8-10.6) k/uL RBC (3.80-5.40) m/uL Hgb (11.4-16.0) gm/dL Hct (34.0-46.0) % MCV (80.0-100.0) fL MCH (25.0-35.0) pg MCHC (31.0-37.0) g/dL RDW (11.5-15.5) % Plt Count (150-450) k/uL Neutrophils % % Lymphocytes % % Monocytes % % Eosinophils % % Basophils % % Neutrophils # (1.3-7.7) k/uL Lymphocytes # (1.0-4.8) k/uL Monocytes # (0-1.0) k/uL Eosinophils # (0-0.7) k/uL Basophils # (0-0.2) k/uL PT 10.4 (9.0-12.0) sec INR 1.1 (<1.2) APTT 26.3 (22.0-30.0) sec Sodium (137-145) mmol/L Potassium (3.5-5.1) mmol/L Chloride (98-107) mmol/L Carbon Dioxide (22-30) mmol/L Anion Gap mmol/L BUN (7-17) mg/dL Creatinine (0.52-1.04) mg/dL Est GFR (CKD-EPI)AfAm (>60 ml/min/1.73 sqM) Est GFR (CKD-EPI)NonAf (>60 ml/min/1.73 sqM) Glucose (74-99) mg/dL Calcium (8.4-10.2) mg/dL Total Bilirubin (0.2-1.3) mg/dL AST (14-36) U/L ALT (9-52) U/L Alkaline Phosphatase (38-126) U/L Total Protein (6.3-8.2) g/dL Albumin (3.5-5.0) g/dL Amylase (30-110) U/L Lipase (23-300) U/L Urine Color Urine Appearance (Clear) Urine pH (5.0-8.0) Ur Specific [place] (1.001-1.035) Urine Protein (Negative) Urine Glucose (UA) (Negative) Urine Ketones (Negative) Urine Blood (Negative) Urine Nitrite (Negative) Urine Bilirubin (Negative) Urine Urobilinogen (<2.0) mg/dL Ur Leukocyte Esterase (Negative) Urine RBC (0-5) /hpf Urine WBC (0-5) /hpf Ur Squamous Epith Cells (0-4) /hpf Hyaline Casts (0-2) /lpf Urine Mucus (None) /hpf - Radiology Data Radiology results: report reviewed KUB shows nonobstructive bowel gas pattern. Similar appearing right renal colliculi comparison with exam on 09/23/2017. Disposition Clinical Impression: UTI (urinary tract infection), Failure of outpatient treatment Disposition: ADMITTED IP TO THIS HOSP Condition: Good Is patient prescribed a controlled substance at d/c from ED?: No When asked, does pt state using other controlled substances?: No If prescribed controlled substance>3 days was MAPS reviewed?: No If opioid is for acute pain is fill amount 7 days or less?: No If Rx opioid, was Start Talking consent form obtained?: No Referrals: Keith Yadav MD [Primary Care Provider] - 1-2 days Time of Disposition: 16:38
--- NOTE | 2017-12-13 15:28 | CT ---
EXAMINATION TYPE: CT abdomen pelvis wo con DATE OF EXAM: 12/13/2017 HISTORY: Generalized pain with hematuria and urination changes CT DLP: 618.1 mGycm. Automated Exposure Control for Dose Reduction was Utilized. TECHNIQUE: CT scan of the abdomen and pelvis is performed without oral or IV contrast. COMPARISON: CT abdomen and pelvis August 08, 2017 FINDINGS: Within the limitations of a non-contrast study, the following observations are made. LUNG BASES: There is linear scarring and/or atelectasis in the lingula and right middle lobe near jania phragm as well as centrally in the left lower lobe just above diaphragm. There is persistent fat dens ity 1.1 cm nodule right lung base on axial image 16. LIVER/GB: Cholecystectomy clips are redemonstrated. PANCREAS: No significant abnormality is seen. SPLEEN: No significant abnormality is seen. 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 KIDNEYS: There are 4 calculi scattered throughout left kidney with largest lower pole level measuring 5 mm long axis coronal image 53. There are roughly 6 calculi scattered throughout right kidney with largest measuring 9 mm long axis lower pole level coronal image 48. There are multiple phleboliths al isabella course of the right ureter. No new hydronephrosis or obstructing ureter calculus is clearly seen. There is stable 6 mm calculus dependently in bladder axial image 114. Just adjacent to this there is suspected larger calculi at urethral junction and additional calculus in the urethra felt present on image 120. This is unchanged from prior. BOWEL: Surgical sutures and clips along the anterior superior margin of the greater curvature of stom ach are redemonstrated. There is no suspicious small or large bowel dilatation. Diverticula in the le ft and sigmoid colon are again seen. No CT evidence for acute diverticulitis. GENITAL ORGANS: Anteverted uterus is seen. Some scattered pelvic phleboliths are present LYMPH NODES: No greater than 1cm abdominal or pelvic lymph nodes are appreciated. OSSEOUS STRUCTURES: There is moderate to advanced disc space narrowing with mild to moderate spurring at lumbosacral junction. There is disc desiccation L4-L5 level. Prominent Schmorl node superior L2 e ndplate. OTHER: There is mild to moderate calcified plaque of aorta extending into branch vessels. IMPRESSION: Overall stable findings, stable bilateral nephrolithiasis as well as calculus within blad charleen. Cannot exclude calculi in urethra. Findings appear similar to prior CT. No hydronephrosis or new obstructing ureter calculi clearly seen.
[2017-12-13] MEDS ORDERED: Acetaminophen-Codeine 300-30mg TAB PO STA (16:30)
[2017-12-13] MEDS ORDERED: IBUPROFEN 400 MG TAB PO PRN (16:40)
[2017-12-13] MEDS ORDERED: Acetaminophen-Codeine 300-30mg TAB PO PRN (16:40)
[2017-12-13] MEDS ORDERED: MORPHINE SULFATE 2 MG/ML SYRINGE IV PRN (16:40)
[2017-12-13] MEDS ORDERED: NALOXONE 0.4 MG/ML 1 ML VIAL IV PRN (16:40)
[2017-12-13] MEDS ORDERED: ONDANSETRON 4 MG/2 ML VIAL IVP PRN (16:40)
--- NOTE | 2017-12-13 18:59 | P.GSCN ---
History of Present Illness Consult date: 12/13/17 History of present illness: This is an 82-year-old female brought into the hospital because of persistent urinary tract infection despite oral antibiotics. She has been seen by both and camila. She has a lot of lower urinary tract symptoms urgency frequency and pressure. She has apparently been treated with antibiotics intermittently since June. She most recently been placed on Macrobid which is culture specific for an E. coli urinary infection. She does have a history of urolithiasis. She came into the emergency room and a computed tomography scan was obtained. The computed tomography scan showed bilateral nonobstructing kidney stones. She also appears to have a bladder and possibly a urethral stone. According to the note from radiology this is unchanged however I'm not able to identify a uterus CAT scan to correlate with this. She has had no fever or chills. Is been no blood in the urine. Mostly she has lower urinary tract symptoms. The urine appears to be infected. She has been on Macrobid. Review of Systems - Constitutional Reports chronic pain - Gastrointestinal Reports as per HPI, Reports abdominal pain - Genitourinary Genitourinary: Reports as per HPI Past Medical History Past Medical History: Atrial Fibrillation, Osteoarthritis (OA) Additional Past Medical History / Comment(s): History of nephrolithiasis and kidney stones, history of recurrent urine tract infections, history of E. coli septicemia back in February 2016, urinary incontinence, spinal stenosis, degenerative arthritis, chronic back pain, bilateral leg and feet pain with L side worse, varicose veins, diverticullosis/diverticulitis, previous exposure to ESBL producing E. coli from May 2015, paroxysmal to fibrillation current rhythm is sinus, hypertension, severe back pain and degenerative arthritis, cpast steroid dependence History of Any Multi-Drug Resistant Organisms: ESBL Year Discovered:: ESBL 06/12/15 MDRO Source:: urine Past Surgical History: Breast Surgery, Cholecystectomy, Orthopedic Surgery Additional Past Surgical History / Comment(s): cystoscopy with coaptite injections x 2, lithrotripsy, hemmoroidectomy, bilateral cataract with lense implants , varicose vein surgery, D&C, L breast biopsy x 2, bilateral great toenails removed, carpal tunnel release R wrist, R knee arthroscopy, lipomas removed from L leg. Past Anesthesia/Blood Transfusion Reactions: No Reported Reaction Smoking Status: Former smoker - Past Family History Brother(s) History Unknown: Yes Family Medical History: Cancer Sister(s) Family Medical History: Deep Vein Thrombosis (DVT) Additional Family Medical History / Comment(s): DVT IN GROIN Mother Family Medical History: No Reported History Father History Unknown: Yes Family Medical History: Unable to Obtain Additional Family Medical History / Comment(s): Pt did not know her biological father. Medications and Allergies Home Medications Medication Instructions Recorded Confirmed Type Cyanocobalamin [Vitamin B-12] 1,000 mcg PO DAILY 03/10/16 12/13/17 History Apixaban [Eliquis] 2.5 mg PO BID #0 tablet 06/03/16 12/13/17 Rx Metoprolol Tartrate [Lopressor] 25 mg PO BID tab 06/03/16 12/13/17 Rx Cholecalciferol [Vitamin D3] 1,000 unit PO DAILY 04/08/17 12/13/17 History Levothyroxine Sodium [Synthroid] 88 mcg PO DAILY 04/08/17 12/13/17 History Omeprazole [PriLOSEC] 20 mg PO DAILY 08/08/17 12/13/17 History Pregabalin [Lyrica] 50 mg PO BID 08/08/17 12/13/17 History Magnesium Oxide [Mag-Ox] 500 mg PO DAILY@1200 12/13/17 12/13/17 History Meloxicam [Mobic] 15 mg PO DAILY 12/13/17 12/13/17 History Nitrofurantoin Monohyd/M-Cryst 100 mg PO Q12HR 12/13/17 12/13/17 History [Macrobid] Allergies Allergy/AdvReac Type Severity Reaction Status Date / Time adhesive Allergy Severe Rash/Hives Verified 12/13/17 12:37 latex Allergy Severe Rash/Hives Verified 12/13/17 12:37 levofloxacin [From Levaquin] AdvReac Severe Nausea & Verified 12/13/17 12:37 Vomiting & Diarrhea sulfamethoxazole AdvReac Mild Nausea & Verified 12/13/17 12:37 [From Bactrim] Vomiting trimethoprim [From Bactrim] AdvReac Mild Nausea & Verified 12/13/17 12:37 Vomiting Surgical - Exam Vital Signs Temp Pulse Resp BP Pulse Ox 98.5 F 62 18 123/72 93 L 12/13/17 12:26 12/13/17 12:26 12/13/17 12:26 12/13/17 12:26 12/13/17 12:26 - General well developed, well nourished, no distress - ENT no hearing loss - Neck trachea midline - Respiratory normal expansion - Abdomen Abdomen: soft, non tender, tender - Neurologic normal coordination, normal sensation - Musculoskeletal normal posture - Psychiatric oriented to time, oriented to person, oriented to place, speech is normal, memory intact Results - Labs 12/13/17 13:40 12/13/17 13:40 Abnormal Lab Results - Last 24 Hours (Table) 12/13/17 12/13/17 12/13/17 Range/Units 13:00 13:40 13:40 Hgb 11.3 L (11.4-16.0) gm/dL Lymphocytes # 0.9 L (1.0-4.8) k/uL Eosinophils # 0.9 H (0-0.7) k/uL BUN 49 H (7-17) mg/dL Creatinine 1.22 H (0.52-1.04) mg/dL Total Protein 5.6 L (6.3-8.2) g/dL Albumin 3.3 L (3.5-5.0) g/dL Urine Appearance Cloudy H (Clear) Urine Protein Trace H (Negative) Urine Blood Small H (Negative) Ur Leukocyte Esterase Large H (Negative) Urine RBC 18 H (0-5) /hpf Urine WBC 53 H (0-5) /hpf Hyaline Casts 34 H (0-2) /lpf Urine Mucus Occasional H (None) /hpf Microbiology - Last 24 Hours (Table) 12/13/17 13:00 Urine Culture - Preliminary Urine,Voided Diabetes panel 12/13/17 Range/Units 13:40 Sodium 140 (137-145) mmol/L Potassium 4.3 (3.5-5.1) mmol/L Chloride 103 (98-107) mmol/L Carbon Dioxide 26 (22-30) mmol/L BUN 49 H (7-17) mg/dL Creatinine 1.22 H (0.52-1.04) mg/dL Glucose 90 (74-99) mg/dL Calcium 8.8 (8.4-10.2) mg/dL AST 26 (14-36) U/L ALT 30 (9-52) U/L Alkaline Phosphatase 97 (38-126) U/L Total Protein 5.6 L (6.3-8.2) g/dL Albumin 3.3 L (3.5-5.0) g/dL Calcium panel 12/13/17 Range/Units 13:40 Calcium 8.8 (8.4-10.2) mg/dL Albumin 3.3 L (3.5-5.0) g/dL Pituitary panel 12/13/17 Range/Units 13:40 Sodium 140 (137-145) mmol/L Potassium 4.3 (3.5-5.1) mmol/L Chloride 103 (98-107) mmol/L Carbon Dioxide 26 (22-30) mmol/L BUN 49 H (7-17) mg/dL Creatinine 1.22 H (0.52-1.04) mg/dL Glucose 90 (74-99) mg/dL Calcium 8.8 (8.4-10.2) mg/dL Adrenal panel 12/13/17 Range/Units 13:40 Sodium 140 (137-145) mmol/L Potassium 4.3 (3.5-5.1) mmol/L Chloride 103 (98-107) mmol/L Carbon Dioxide 26 (22-30) mmol/L BUN 49 H (7-17) mg/dL Creatinine 1.22 H (0.52-1.04) mg/dL Glucose 90 (74-99) mg/dL Calcium 8.8 (8.4-10.2) mg/dL Total Bilirubin 0.5 (0.2-1.3) mg/dL AST 26 (14-36) U/L ALT 30 (9-52) U/L Alkaline Phosphatase 97 (38-126) U/L Total Protein 5.6 L (6.3-8.2) g/dL Albumin 3.3 L (3.5-5.0) g/dL - Imaging CT scan - abdomen: report reviewed, image reviewed CT scan - pelvis: report reviewed, image reviewed Assessment and Plan Assessment: Impression: Persistent lower urinary tract symptoms. Recurrent urine infection recently E. coli sensitive to Macrobid. History of kidney stones. Normal computed tomography scan showing bilateral nonobstructing renal stones and suggestive bladder and urethral stones. Recommendations: The patient is on IV antibiotics. Her vital signs are stable. She is afebrile and her white count is normal. Some point in time the patient will need cystoscopy to this truly assess the lower urinary tract to see whether indeed this is the cause of the persistent of urinary symptoms. I will notify of her admission.
[2017-12-13 20:51] VITALS: RESP 16
[2017-12-13] MEDS: APIXABAN 2.5 MG TABLET PO SCH (21:00)
[2017-12-13] MEDS: PREGABALIN 50 MG CAP PO SCH (21:00)
[2017-12-13] MEDS ORDERED: diphenhydrAMINE 25 MG CAP PO PRN (21:58)
[2017-12-13] MEDS: SODIUM CHLORIDE 0.9% 1,000 ML IV SCH (22:10)
[2017-12-13] MEDS: METOPROLOL TARTRATE 25 MG TAB PO SCH (23:06)
[2017-12-14] MEDS: SODIUM CHLORIDE 0.9% 1,000 ML IV SCH ×2 (06:19→14:46)
[2017-12-14] MEDS: ACETAMINOPHEN TAB 325 MG TAB PO PRN (06:19)
[2017-12-14] MEDS: LEVOTHYROXINE 88 MCG TAB PO SCH (06:20)
[2017-12-14] MEDS: PANTOPRAZOLE 40 MG/10 ML VIAL IV SCH (08:08)
[2017-12-14] MEDS: APIXABAN 2.5 MG TABLET PO SCH ×2 (08:08→20:36)
[2017-12-14] MEDS: CYANOCOBALAMIN 500 MCG TAB PO SCH (08:08)
[2017-12-14] MEDS: PREGABALIN 50 MG CAP PO SCH ×2 (08:08→20:36)
[2017-12-14] MEDS: METOPROLOL TARTRATE 25 MG TAB PO SCH ×2 (08:09→20:35)
--- NOTE | 2017-12-14 10:53 | P.HPIM ---
History of Present Illness 81-year-old female presented emergency room with complaints of dysuria and flank pain patient has history of recurrent UTIs E. coli with septicemia. Patient has been following up with Dr. Chavez for recurrent kidney stones. Patient is pending cultures for blood and urine. Family requesting consultation Dr. Lovell. Patient was given Rocephin developed a rash Review of Systems Constitutional: Reports weakness Genitourinary: Reports dysuria, Reports flank pain Past Medical History Past Medical History: Atrial Fibrillation, Osteoarthritis (OA) Additional Past Medical History / Comment(s): History of nephrolithiasis and kidney stones, history of recurrent urine tract infections, history of E. coli septicemia back in February 2016, urinary incontinence, spinal stenosis, degenerative arthritis, chronic back pain, bilateral leg and feet pain with L side worse, varicose veins, diverticullosis/diverticulitis, previous exposure to ESBL producing E. 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 Past Anesthesia/Blood Transfusion Reactions: No Reported Reaction Smoking Status: Former smoker - Past Family History Brother(s) History Unknown: Yes Family Medical History: Cancer Sister(s) Family Medical History: Deep Vein Thrombosis (DVT) Additional Family Medical History / Comment(s): DVT IN GROIN Mother Family Medical History: No Reported History Father History Unknown: Yes Family Medical History: Unable to Obtain Additional Family Medical History / Comment(s): Pt did not know her biological father. Medications and Allergies Home Medications Medication Instructions Recorded Confirmed Type Cyanocobalamin [Vitamin B-12] 1,000 mcg PO DAILY 03/10/16 12/13/17 History Apixaban [Eliquis] 2.5 mg PO BID #0 tablet 06/03/16 12/13/17 Rx Metoprolol Tartrate [Lopressor] 25 mg PO BID tab 06/03/16 12/13/17 Rx Cholecalciferol [Vitamin D3] 1,000 unit PO DAILY 04/08/17 12/13/17 History Levothyroxine Sodium [Synthroid] 88 mcg PO DAILY 04/08/17 12/13/17 History Omeprazole [PriLOSEC] 20 mg PO DAILY 08/08/17 12/13/17 History Pregabalin [Lyrica] 50 mg PO BID 08/08/17 12/13/17 History Magnesium Oxide [Mag-Ox] 500 mg PO DAILY@1200 12/13/17 12/13/17 History Meloxicam [Mobic] 15 mg PO DAILY 12/13/17 12/13/17 History Nitrofurantoin Monohyd/M-Cryst 100 mg PO Q12HR 12/13/17 12/13/17 History [Macrobid] Allergies Allergy/AdvReac Type Severity Reaction Status Date / Time adhesive Allergy Severe Rash/Hives Verified 12/13/17 12:37 latex Allergy Severe Rash/Hives Verified 12/13/17 12:37 levofloxacin [From Levaquin] AdvReac Severe Nausea & Verified 12/13/17 12:37 Vomiting & Diarrhea sulfamethoxazole AdvReac Mild Nausea & Verified 12/13/17 12:37 [From Bactrim] Vomiting trimethoprim [From Bactrim] AdvReac Mild Nausea & Verified 12/13/17 12:37 Vomiting Physical Exam Vitals: Vital Signs Temp Pulse Pulse Resp BP BP Pulse Ox 12/14/17 08:00 73 16 12/14/17 05:26 97.7 F 73 16 117/66 92 L 12/13/17 22:13 66 16 119/57 95 12/13/17 20:50 97.9 F 62 16 90/46 93 L 12/13/17 17:25 98.2 F 68 18 111/53 94 L 12/13/17 16:22 64 18 136/61 96 12/13/17 15:35 63 18 152/68 96 12/13/17 13:53 60 18 129/61 95 12/13/17 12:26 98.5 F 62 18 123/72 93 L Intake and Output 12/13/17 12/14/17 12/14/17 22:59 06:59 14:59 Other: Voiding Method Toilet Toilet Diaper Diaper # Voids 1 2 - Constitutional General appearance: mild distress - EENT Eyes: PERRLA Ears: bilateral: normal - Neck Neck: normal ROM - Respiratory Respiratory: bilateral: CTA - Cardiovascular Rhythm: regular - Gastrointestinal General gastrointestinal: soft - Integumentary Integumentary: normal - Neurologic Neurologic: CNII-XII intact - Musculoskeletal Musculoskeletal: generalized weakness - Psychiatric Psychiatric: A&O x's 3, appropriate affect, intact judgment & insight Results CBC & Chem 7: 12/13/17 13:40 12/13/17 13:40 Labs: Abnormal Lab Results - Last 24 Hours (Table) 12/13/17 12/13/17 12/13/17 Range/Units 13:00 13:40 13:40 Hgb 11.3 L (11.4-16.0) gm/dL Lymphocytes # 0.9 L (1.0-4.8) k/uL Eosinophils # 0.9 H (0-0.7) k/uL BUN 49 H (7-17) mg/dL Creatinine 1.22 H (0.52-1.04) mg/dL Total Protein 5.6 L (6.3-8.2) g/dL Albumin 3.3 L (3.5-5.0) g/dL Urine Appearance Cloudy H (Clear) Urine Protein Trace H (Negative) Urine Blood Small H (Negative) Ur Leukocyte Esterase Large H (Negative) Urine RBC 18 H (0-5) /hpf Urine WBC 53 H (0-5) /hpf Hyaline Casts 34 H (0-2) /lpf Urine Mucus Occasional H (None) /hpf Microbiology - Last 24 Hours (Table) 12/13/17 13:00 Urine Culture - Preliminary Urine,Voided Abdominal x-ray: report reviewed CT scan - abdomen: report reviewed Thrombosis Risk Factor Assmnt - Choose All That Apply Any of the Below Risk Factors Present?: Yes Each Factor Represents 1 point: Obesity (BMI >25) Each Risk Factor Represents 3 Points: Age 75 years or older Thrombosis Risk Factor Assessment Total Risk Factor Score: 4 Thrombosis Risk Factor Assessment Level: Moderate Risk Assessment and Plan Plan: Assessment Urinary tract infection failed outpatient is on Macrobid History of atrial fibrillation Nephrolithiasis Recurrent urinary urinary tract infection with sepsis E. coli Spinal stenosis Hypertension Plan Continue consultation with urology Consultations with infectious disease Dr. Lovell
[2017-12-14] MEDS: MAGNESIUM OXIDE 400 MG TAB PO SCH (12:07)
[2017-12-14] MEDS: CHOLECALCIFEROL 1,000 UNIT TAB PO SCH (12:07)
--- NOTE | 2017-12-14 20:41 | P.CONS ---
History of Present Illness - Reason for Consult Consult date: 12/14/17 - Chief Complaint uti - History of Present Illness Pleasant 82-year-old female presents to Hospital a several month history of difficulties with urinary tract infection. She's been cared for in the outpatient setting and has been treated with multiple courses of antibiotic therapy. Most recently had a 30 day course of Macrobid but has remained symptomatic. The patient continued to have some fever she was having malaise she's having some nausea without jm emesis and ongoing significant urinary discomfort with frequency as well as progressive flank pain. Because of her failure of outpatient antibiotic therapy she's been admitted to hospital and has been seen by urology and infectious disease consultation was requested regarding antibiotic therapy. She was treated with Rocephin in the emergency center and developed a drug eruption responded well to a course of Benadryl. She reports she is feeling slightly better this afternoon. She's had hydration and the first dose of adequate antibiotic therapy however with a drug eruption and other ALLERGIES alternative antibiotic therapy required. She this time is denying other acute difficulties except she's had some mild weight loss she's not been eating very well. She's not had hematuria but does have significant frequency and nocturia. Does not recall passing a stone recently Review of Systems HEENT:Denies headache or acute visual change. Denies sinus or mouth discomforts. Denies neck stiffness or pain. Denies significant oral cavity pain. Denies difficulty on swallowing. Lungs: Denies significant shortness of breath, cough, sputum production, or hemoptysis. Cardiovascular: Denies significant shortness of breath, chest pain, chest wall pain, orthopnea, dyspnea on exertion, syncope Gastrointestinal:Denies nausea, vomiting, diarrhea, constipation, hematemesis, melena, hematochezia. No no significant change of bowel habit noticed. Musculoskeletal: His severe back pain. This is waxing and waning and was doing very well after course of steroids. Now has some swelling to her left wrist which is somewhat painful. Skin: Denies new rash or lesions. No new ulcers or wounds are related.. Neuro: Denies headache or visual change. He has significant chronic back pain which is not new. Has worsened with her current illness. Is having difficulty with walking at this time but after her course of steroids was actually doing very well at home until she became ill. Psychiatric:Denies anxiety or depression. Endocrine: Currently has significant fatigue, denies significant weight loss or weight gain. Past Medical History Past Medical History: Atrial Fibrillation, Osteoarthritis (OA) Additional Past Medical History / Comment(s): History of nephrolithiasis and kidney stones, history of recurrent urine tract infections, history of E. coli septicemia back in February 2016, urinary incontinence, spinal stenosis, degenerative arthritis, chronic back pain, bilateral leg and feet pain with L side worse, varicose veins, diverticullosis/diverticulitis, previous exposure to ESBL producing E. coli from May 2015, paroxysmal to fibrillation current rhythm is sinus, hypertension, severe back pain and degenerative arthritis, cpast steroid dependence History of Any Multi-Drug Resistant Organisms: ESBL Year Discovered:: ESBL 06/12/15 MDRO Source:: urine Past Surgical History: Breast Surgery, Cholecystectomy, Orthopedic Surgery Additional Past Surgical History / Comment(s): cystoscopy with coaptite injections x 2, lithrotripsy, hemmoroidectomy, bilateral cataract with lense implants , varicose vein surgery, D&C, L breast biopsy x 2, bilateral great toenails removed, carpal tunnel release R wrist, R knee arthroscopy, lipomas removed from L leg. Past Anesthesia/Blood Transfusion Reactions: No Reported Reaction Additional Psychological History / Comment(s): History of prior tobacco use. No severe alcohol use. Stopped smoking in 1987. She has no pet exposures. No travel. Lives at a local senior facility in [facility] [place]. She lives with her . She last was on a cruise in May 2016. Relates that her mother had arthritis Smoking Status: Former smoker - Past Family History Brother(s) History Unknown: Yes Family Medical History: Cancer Sister(s) Family Medical History: Deep Vein Thrombosis (DVT) Additional Family Medical History / Comment(s): DVT IN GROIN Mother Family Medical History: No Reported History Father History Unknown: Yes Family Medical History: Unable to Obtain Additional Family Medical History / Comment(s): Pt did not know her biological father. Medications and Allergies Home Medications and Allergies Comment(s): Current Medications Acetaminophen (Tylenol Tab) 650 mg PO Q6HR PRN PRN Reason: Mild Pain or Fever > 100.5 Last Admin: 12/14/17 06:19 Dose: 650 mg Acetaminophen/Codeine Phosphate (Tylenol #3) 1 each PO Q4HR PRN PRN Reason: Moderate Pain Apixaban (Eliquis) 2.5 mg PO BID [facility] Last Admin: 12/14/17 20:36 Dose: 2.5 mg Cholecalciferol (Vitamin D3) 1,000 unit PO DAILY@1200 [facility] Last Admin: 12/14/17 12:07 Dose: 1,000 unit Cyanocobalamin (Vitamin B-12) 1,000 mcg PO DAILY [facility] Last Admin: 12/14/17 08:08 Dose: 1,000 mcg Diphenhydramine HCl (Benadryl) 25 mg PO QID PRN PRN Reason: Itching Last Admin: 12/13/17 22:10 Dose: 25 mg Sodium Chloride (Saline 0.9%) 1,000 mls @ 120 mls/hr IV .Q8H20M [facility] Last Admin: 12/14/17 14:46 Dose: 120 mls/hr Ibuprofen (Motrin) 400 mg PO Q6HR PRN PRN Reason: Mild Pain or Fever > 100.5 Levothyroxine Sodium (Synthroid) 88 mcg PO DAILY@0630 [facility] Last Admin: 12/14/17 06:20 Dose: 88 mcg Magnesium Oxide (Mag-Ox) 400 mg PO DAILY@1200 [facility] Last Admin: 12/14/17 12:07 Dose: 400 mg Metoprolol Tartrate (Lopressor) 25 mg PO BID [facility] Last Admin: 12/14/17 20:35 Dose: 25 mg Morphine Sulfate (Morphine Sulfate (Inj)) 4 mg IV Q4HR PRN PRN Reason: Severe Pain Naloxone HCl (Narcan) 0.2 mg IV Q2M PRN PRN Reason: Opioid Reversal Ondansetron HCl (Zofran) 4 mg IVP Q8HR PRN PRN Reason: Nausea And Vomiting Pantoprazole Sodium (Protonix) 40 mg IV DAILY [facility] Last Admin: 12/14/17 08:08 Dose: 40 mg Pregabalin (Lyrica) 50 mg PO BID [facility] Last Admin: 12/14/17 20:36 Dose: 50 mg Home Medications Medication Instructions Recorded Confirmed Type Cyanocobalamin [Vitamin B-12] 1,000 mcg PO DAILY 03/10/16 12/13/17 History Apixaban [Eliquis] 2.5 mg PO BID #0 tablet 06/03/16 12/13/17 Rx Metoprolol Tartrate [Lopressor] 25 mg PO BID tab 06/03/16 12/13/17 Rx Cholecalciferol [Vitamin D3] 1,000 unit PO DAILY 04/08/17 12/13/17 History Levothyroxine Sodium [Synthroid] 88 mcg PO DAILY 04/08/17 12/13/17 History Omeprazole [PriLOSEC] 20 mg PO DAILY 08/08/17 12/13/17 History Pregabalin [Lyrica] 50 mg PO BID 08/08/17 12/13/17 History Magnesium Oxide [Mag-Ox] 500 mg PO DAILY@1200 12/13/17 12/13/17 History Meloxicam [Mobic] 15 mg PO DAILY 12/13/17 12/13/17 History Nitrofurantoin Monohyd/M-Cryst 100 mg PO Q12HR 12/13/17 12/13/17 History [Macrobid] Allergies Allergy/AdvReac Type Severity Reaction Status Date / Time adhesive Allergy Severe Rash/Hives Verified 12/13/17 12:37 latex Allergy Severe Rash/Hives Verified 12/13/17 12:37 levofloxacin [From Levaquin] AdvReac Severe Nausea & Verified 12/13/17 12:37 Vomiting & Diarrhea sulfamethoxazole AdvReac Mild Nausea & Verified 12/13/17 12:37 [From Bactrim] Vomiting trimethoprim [From Bactrim] AdvReac Mild Nausea & Verified 12/13/17 12:37 Vomiting Physical Exam Vitals: Vital Signs Temp Pulse Resp BP Pulse Ox 12/14/17 16:00 97.7 F 65 16 161/75 95 12/14/17 08:00 73 16 12/14/17 05:26 97.7 F 73 16 117/66 92 L 12/13/17 22:13 66 16 119/57 95 12/13/17 20:50 97.9 F 62 16 90/46 93 L Intake and Output 12/14/17 12/14/17 12/14/17 06:59 14:59 22:59 Intake Total 600 Balance 600 Intake: Oral 600 Other: Voiding Method Toilet Toilet Toilet Diaper Diaper Diaper # Voids 2 3 Gen: This is an 82-year-old female. She is sitting in bed and appears to be quite uncomfortable HEENT: Head is atraumatic, normocephalic. Pupils equal, round. Sclerae is anicteric. Conjunctiva pink. Mucous members of the mouth are moist. Dentition is in good order for age. NECK: Supple. No JVD. No lymphadenopathy. No thyromegaly. LUNGS: Clear to auscultation. No wheezes or rhonchi. No intercostal retractions. HEART: Regular rate and rhythm. No murmur. Normal S1 and S2 soft S4 no click or rub ABDOMEN: Soft. Bowel sounds are present. No masses. No tenderness. Has mild suprapubic tenderness and has bilateral flank tenderness left somewhat greater than right EXTREMITIES: No pedal edema. No calf tenderness. Has chronic arthritic changes to her hands and feet but no acute flares at this time NEUROLOGICAL: Patient is awake, alert and oriented x3 no acute gross focal sensory motor deficits Results CBC & Chem 7: 12/13/17 13:40 12/13/17 13:40 Labs: Microbiology - Last 24 Hours (Table) 12/13/17 13:40 Blood Culture - Preliminary Blood No Growth after 24 hours 12/13/17 13:00 Urine Culture - Preliminary Urine,Voided Laboratory Results WBC 6.4 k/uL (3.8-10.6) 12/13/17 13:40 RBC 4.09 m/uL (3.80-5.40) 12/13/17 13:40 Hgb 11.3 gm/dL (11.4-16.0) L 12/13/17 13:40 Hct 34.8 % (34.0-46.0) 12/13/17 13:40 MCV 84.9 fL (80.0-100.0) 12/13/17 13:40 MCH 27.7 pg (25.0-35.0) 12/13/17 13:40 MCHC 32.6 g/dL (31.0-37.0) 12/13/17 13:40 RDW 14.7 % (11.5-15.5) 12/13/17 13:40 Plt Count 258 k/uL (150-450) 12/13/17 13:40 Neutrophils % 65 % 12/13/17 13:40 Lymphocytes % 14 % 12/13/17 13:40 Monocytes % 4 % 12/13/17 13:40 Eosinophils % 15 % 12/13/17 13:40 Basophils % 0 % 12/13/17 13:40 Neutrophils # 4.2 k/uL (1.3-7.7) 12/13/17 13:40 Lymphocytes # 0.9 k/uL (1.0-4.8) L 12/13/17 13:40 Monocytes # 0.3 k/uL (0-1.0) 12/13/17 13:40 Eosinophils # 0.9 k/uL (0-0.7) H 12/13/17 13:40 Basophils # 0.0 k/uL (0-0.2) 12/13/17 13:40 PT 10.4 sec (9.0-12.0) 12/13/17 13:40 INR 1.1 (<1.2) 12/13/17 13:40 APTT 26.3 sec (22.0-30.0) 12/13/17 13:40 Sodium 140 mmol/L (137-145) 12/13/17 13:40 Potassium 4.3 mmol/L (3.5-5.1) 12/13/17 13:40 Chloride 103 mmol/L (98-107) 12/13/17 13:40 Carbon Dioxide 26 mmol/L (22-30) 12/13/17 13:40 Anion Gap 11 mmol/L 12/13/17 13:40 BUN 49 mg/dL (7-17) H 12/13/17 13:40 Creatinine 1.22 mg/dL (0.52-1.04) H 12/13/17 13:40 Est GFR (CKD-EPI)AfAm 47 (>60 ml/min/1.73 sqM) 12/13/17 13:40 Est GFR (CKD-EPI)NonAf 41 (>60 ml/min/1.73 sqM) 12/13/17 13:40 Glucose 90 mg/dL (74-99) 12/13/17 13:40 Calcium 8.8 mg/dL (8.4-10.2) 12/13/17 13:40 Total Bilirubin 0.5 mg/dL (0.2-1.3) 12/13/17 13:40 AST 26 U/L (14-36) 12/13/17 13:40 ALT 30 U/L (9-52) 12/13/17 13:40 Alkaline Phosphatase 97 U/L (38-126) 12/13/17 13:40 Total Protein 5.6 g/dL (6.3-8.2) L 12/13/17 13:40 Albumin 3.3 g/dL (3.5-5.0) L 12/13/17 13:40 Amylase 67 U/L (30-110) 12/13/17 13:40 Lipase 146 U/L (23-300) 12/13/17 13:40 Urine Color Yellow 12/13/17 13:00 Urine Appearance Cloudy (Clear) H 12/13/17 13:00 Urine pH 5.0 (5.0-8.0) 12/13/17 13:00 Ur Specific [place] 1.013 (1.001-1.035) 12/13/17 13:00 Urine Protein Trace (Negative) H 12/13/17 13:00 Urine Glucose (UA) Negative (Negative) 12/13/17 13:00 Urine Ketones Negative (Negative) 12/13/17 13:00 Urine Blood Small (Negative) H 12/13/17 13:00 Urine Nitrite Negative (Negative) 12/13/17 13:00 Urine Bilirubin Negative (Negative) 12/13/17 13:00 Urine Urobilinogen <2.0 mg/dL (<2.0) 12/13/17 13:00 Ur Leukocyte Esterase Large (Negative) H 12/13/17 13:00 Urine RBC 18 /hpf (0-5) H 12/13/17 13:00 Urine WBC 53 /hpf (0-5) H 12/13/17 13:00 Ur Squamous Epith Cells 2 /hpf (0-4) 12/13/17 13:00 Hyaline Casts 34 /lpf (0-2) H 12/13/17 13:00 Urine Mucus Occasional /hpf (None) H 12/13/17 13:00 Microbiology 12/13/17 13:40 Blood Blood Culture - Preliminary No Growth after 24 hours 12/13/17 13:00 Urine,Voided Urine Culture - Preliminary Outpatient urine culture with E. coli quinolone resistant CT scan - abdomen: report reviewed, image reviewed (Bilateral renal stones, bladder stone no evidence of acute hydronephrosis) Assessment and Plan (1) Failure of outpatient treatment Narrative/Plan: 82-year-old female has a history of nephrolithiasis and has been followed in the outpatient setting urologist. Despite recent courses of antibiotic therapy remains symptomatic and had significant worsening of her symptoms and constantly presented to the emergency center. With the failure of the outpatient antibiotic therapy she has been admitted. She was placed on Rocephin but developed a significant drug eruption this is been discontinued and fortunately she's had a good response to treatment. If this time Azactam will be utilized for treatment of the recently isolated E. coli which is a, pathogen for her. Urology is contemplating cystoscopy. There is the option at this point in time to plan an outpatient course of antibiotic therapy for several weeks and admits of her therapy she could potentially have her intervention and possibly removal of bladder stone rather stones while she is receiving antibiotic therapy. There is concerns of the stones are the nidus for her ongoing infection. Hopefully with antibiotic therapy she will rapidly start him improvement of her symptoms. She does have mild dehydration and over with hydration the acute kidney injury rapidly improve. Information is related to the and daughter who are present. Current Visit: Yes Status: Acute Code(s): Z78.9 - OTHER SPECIFIED HEALTH STATUS SNOMED Code(s): 926219341 (2) Urinary tract infection Current Visit: Yes Status: Acute Code(s): N39.0 - URINARY TRACT INFECTION, SITE NOT SPECIFIED SNOMED Code(s): 63123228 (3) Bilateral nephrolithiasis Current Visit: Yes Status: Acute Code(s): N20.0 - CALCULUS OF KIDNEY SNOMED Code(s): 84687123
[2017-12-14] MEDS: AZTREONAM 2 GM in SODIUM CHLORIDE 0.9% 100 ML IVPB SCH (22:36)
[2017-12-15] MEDS: SODIUM CHLORIDE 0.9% 1,000 ML IV SCH ×4 (00:08→22:28)
[2017-12-15] MEDS: AZTREONAM 2 GM in SODIUM CHLORIDE 0.9% 100 ML IVPB SCH ×3 (06:13→22:25)
[2017-12-15] MEDS: LEVOTHYROXINE 88 MCG TAB PO SCH (06:13)
[2017-12-15 07:30] LABS: Basophils % (A) 1 %; Eosinophils # (A) 0.9 k/uL (0-0.7); Eosinophils % (A) 17 %; HCT 30.9 % (34.0-46.0); Hypochromasia Slight; Lymphocytes # (A) 1.1 k/uL (1.0-4.8); Lymphocytes % (A) 21 %; MCH 27.3 pg (25.0-35.0); MCHC 31.6 g/dL (31.0-37.0); MCV 86.3 fL (80.0-100.0); Mean Platelet Volume 7.4; Monocytes # (A) 0.4 k/uL (0-1.0); Monocytes % (A) 8 %; Neutrophils # (A) 2.9 k/uL (1.3-7.7); Neutrophils % (A) 52 %; Platelet Count 233 k/uL (150-450); RBC 3.58 m/uL (3.80-5.40); RDW 14.8 % (11.5-15.5); WBC 5.5 k/uL (3.8-10.6)
[2017-12-15 07:36] LABS: HGB 9.8 gm/dL (11.4-16.0)
[2017-12-15] MEDS: PANTOPRAZOLE 40 MG/10 ML VIAL IV SCH (07:38)
[2017-12-15] MEDS: APIXABAN 2.5 MG TABLET PO SCH ×2 (07:38→22:25)
[2017-12-15] MEDS: METOPROLOL TARTRATE 25 MG TAB PO SCH ×2 (07:38→22:25)
[2017-12-15] MEDS: CYANOCOBALAMIN 500 MCG TAB PO SCH (07:38)
[2017-12-15] MEDS: PREGABALIN 50 MG CAP PO SCH ×2 (07:38→22:33)
[2017-12-15] MEDS: ACETAMINOPHEN TAB 325 MG TAB PO PRN (07:42)
[2017-12-15 08:00] LABS: Potassium 4.4 mmol/L (3.5-5.1)
[2017-12-15] MEDS: CHOLECALCIFEROL 1,000 UNIT TAB PO SCH (11:46)
[2017-12-15] MEDS: MAGNESIUM OXIDE 400 MG TAB PO SCH (11:47)
--- NOTE | 2017-12-15 11:59 | P.PN ---
Subjective There is a group discussion this morning with Dr. Kathy Lovell and myself. Plan is for outpatient IV antibiotic therapy with Dr. Lovell. Outpatient Dr. Noe is planning to do on cystoscopy and stone retrieval from right ureter family patient agreeable of this Objective - Vital Signs Vital signs: Vital Signs Temp 98.2 F 12/15/17 05:37 Pulse 61 12/15/17 08:00 Resp 16 12/15/17 08:00 BP 153/71 12/15/17 05:37 Pulse Ox 95 12/15/17 05:37 Intake & Output 12/14/17 12/15/17 12/15/17 18:59 06:59 18:59 Intake Total 600 Balance 600 Intake: Oral 600 Other: Voiding Method Toilet Toilet Toilet Diaper Diaper Diaper # Voids 3 2 - Constitutional General appearance: Present: obese - EENT Eyes: Present: PERRLA Ears: bilateral: normal - Neck Neck: Present: normal ROM - Respiratory Respiratory: bilateral: CTA - Cardiovascular Rhythm: regular - Gastrointestinal General gastrointestinal: Present: soft - Integumentary Integumentary: Present: normal - Neurologic Neurologic: Present: CNII-XII intact - Musculoskeletal Musculoskeletal: Present: generalized weakness - Psychiatric Psychiatric: Present: A&O x's 3, appropriate affect, intact judgment & insight - Labs CBC & Chem 7: 12/15/17 06:51 12/15/17 06:51 Labs: Abnormal Lab Results - Last 24 Hours (Table) 12/15/17 12/15/17 Range/Units 06:51 06:51 RBC 3.58 L (3.80-5.40) m/uL Hgb 9.8 L D (11.4-16.0) gm/dL Hct 30.9 L (34.0-46.0) % Eosinophils # 0.9 H (0-0.7) k/uL Chloride 113 H (98-107) mmol/L BUN 25 H (7-17) mg/dL Microbiology - Last 24 Hours (Table) 12/13/17 13:00 Urine Culture - Final Urine,Voided 12/13/17 13:40 Blood Culture - Preliminary Blood No Growth after 24 hours - Imaging and Cardiology CT scan - abdomen: report reviewed Assessment and Plan Plan: Assessment Chronic urinary tract infection failed outpatient therapy E. coli resistant Nephrolithiasis History of atrial fibrillation Spinal stenosis Hypertension Plan Hopeful discharge tomorrow after PICC line insertion Follow-up with Dr. Lovell for IV therapy Aztrenam started Continue consultation with urology
--- NOTE | 2017-12-15 16:49 | P.PN ---
Progress Note - Text Progress Note Date: 12/15/17 Mrs. Zavala states that she is feeling better today. She continues to report lower back discomfort, which is predominantly right-sided. She is being treated for a recurrent E. coli UTI. Unfortunately, she had an ALLERGIC reaction to Rocephin and is currently receiving aztreonam. She is also ALLERGIC to alternative oral antibiotics with favorable sensitivities. In view of this, she will require outpatient IV antibiotic therapy. I reviewed the computed tomography scan, which suggests the possibility of a bladder calculus. The computed tomography scan also shows multiple right renal calculi, we discussed the fact that any of these calculi may be infected and thus the source of her recurrent UTIs. She desires removal of the renal calculi. We discussed ESWL and ureteroscopy, and she prefers the latter. An attempt will be made to schedule this sometime next week.
[2017-12-15] MEDS ORDERED: ALPRAZolam 0.5 MG TAB PO SCH (21:00)
[2017-12-15] MEDS ORDERED: AZTREONAM 2 GM in SODIUM CHLORIDE 0.9% 100 ML IVPB SCH (21:00)
--- NOTE | 2017-12-15 23:53 | P.PN ---
Subjective Progress Note Date: 12/15/17 Pleasant 82-year-old female presents to Hospital a several month history of difficulties with urinary tract infection. She's been cared for in the outpatient setting and has been treated with multiple courses of antibiotic therapy. Most recently had a 30 day course of Macrobid but has remained symptomatic. The patient continued to have some fever she was having malaise she's having some nausea without jm emesis and ongoing significant urinary discomfort with frequency as well as progressive flank pain. Because of her failure of outpatient antibiotic therapy she's been admitted to hospital and has been seen by urology and infectious disease consultation was requested regarding antibiotic therapy. She was treated with Rocephin in the emergency center and developed a drug eruption responded well to a course of Benadryl. She reports she is feeling slightly better this afternoon. She's had hydration and the first dose of adequate antibiotic therapy however with a drug eruption and other ALLERGIES alternative antibiotic therapy required. She this time is denying other acute difficulties except she's had some mild weight loss she's not been eating very well. She's not had hematuria but does have significant frequency and nocturia. Does not recall passing a stone recently 12/15/2017 the patient is feeling somewhat better. She is denying intermittent troubles at this time. Fevers started to improve. She denying nausea or emesis. She is tolerating the current antibiotic therapy well without difficulties. No further rashes noted. Objective - Vital Signs Vital signs: Vital Signs Temp 97.6 F 12/15/17 21:19 Pulse 63 12/15/17 21:19 Resp 16 12/15/17 21:19 BP 157/68 12/15/17 21:19 Pulse Ox 96 12/15/17 21:19 Intake & Output 12/15/17 12/15/17 12/16/17 06:59 18:59 06:59 Intake Total 525 Balance 525 Intake: Intake, IV Titration 525 Amount Sodium Chloride 0.9% 1, 525 000 ml @ 120 mls/hr IV . Q8H20M [facility] Rx#:[id number] Other: Voiding Method Toilet Toilet Diaper Diaper # Voids 2 2 - Exam Gen: This is an 82-year-old female. She is sitting in bed and appears to be quite uncomfortable HEENT: Head is atraumatic, normocephalic. Pupils equal, round. Sclerae is anicteric. Conjunctiva pink. Mucous members of the mouth are moist. Dentition is in good order for age. NECK: Supple. No JVD. No lymphadenopathy. No thyromegaly. LUNGS: Clear to auscultation. No wheezes or rhonchi. No intercostal retractions. HEART: Regular rate and rhythm. No murmur. Normal S1 and S2 soft S4 no click or rub ABDOMEN: Soft. Bowel sounds are present. No masses. No tenderness. Has mild suprapubic tenderness and has bilateral flank tenderness left somewhat greater than right EXTREMITIES: No pedal edema. No calf tenderness. Has chronic arthritic changes to her hands and feet but no acute flares at this time NEUROLOGICAL: Patient is awake, alert and oriented x3 no acute gross focal sensory motor deficits - Labs CBC & Chem 7: 12/15/17 06:51 12/15/17 06:51 Labs: Abnormal Lab Results - Last 24 Hours (Table) 12/15/17 12/15/17 Range/Units 06:51 06:51 RBC 3.58 L (3.80-5.40) m/uL Hgb 9.8 L D (11.4-16.0) gm/dL Hct 30.9 L (34.0-46.0) % Eosinophils # 0.9 H (0-0.7) k/uL Chloride 113 H (98-107) mmol/L BUN 25 H (7-17) mg/dL Microbiology - Last 24 Hours (Table) 12/13/17 13:40 Blood Culture - Preliminary Blood No Growth after 48 hours 12/13/17 13:00 Urine Culture - Final Urine,Voided Laboratory Results WBC 5.5 k/uL (3.8-10.6) 12/15/17 06:51 RBC 3.58 m/uL (3.80-5.40) L 12/15/17 06:51 Hgb 9.8 gm/dL (11.4-16.0) L D 12/15/17 06:51 Hct 30.9 % (34.0-46.0) L 12/15/17 06:51 MCV 86.3 fL (80.0-100.0) 12/15/17 06:51 MCH 27.3 pg (25.0-35.0) 12/15/17 06:51 MCHC 31.6 g/dL (31.0-37.0) 12/15/17 06:51 RDW 14.8 % (11.5-15.5) 12/15/17 06:51 Plt Count 233 k/uL (150-450) 12/15/17 06:51 Neutrophils % 52 % 12/15/17 06:51 Lymphocytes % 21 % 12/15/17 06:51 Monocytes % 8 % 12/15/17 06:51 Eosinophils % 17 % 12/15/17 06:51 Basophils % 1 % 12/15/17 06:51 Neutrophils # 2.9 k/uL (1.3-7.7) 12/15/17 06:51 Lymphocytes # 1.1 k/uL (1.0-4.8) 12/15/17 06:51 Monocytes # 0.4 k/uL (0-1.0) 12/15/17 06:51 Eosinophils # 0.9 k/uL (0-0.7) H 12/15/17 06:51 Basophils # 0.0 k/uL (0-0.2) 12/15/17 06:51 Hypochromasia Slight 12/15/17 06:51 PT 10.4 sec (9.0-12.0) 12/13/17 13:40 INR 1.1 (<1.2) 12/13/17 13:40 APTT 26.3 sec (22.0-30.0) 12/13/17 13:40 Sodium 143 mmol/L (137-145) 12/15/17 06:51 Potassium 4.4 mmol/L (3.5-5.1) 12/15/17 06:51 Chloride 113 mmol/L (98-107) H 12/15/17 06:51 Carbon Dioxide 23 mmol/L (22-30) 12/15/17 06:51 Anion Gap 7 mmol/L 12/15/17 06:51 BUN 25 mg/dL (7-17) H 12/15/17 06:51 Creatinine 0.79 mg/dL (0.52-1.04) 12/15/17 06:51 Est GFR (CKD-EPI)AfAm 81 (>60 ml/min/1.73 sqM) 12/15/17 06:51 Est GFR (CKD-EPI)NonAf 70 (>60 ml/min/1.73 sqM) 12/15/17 06:51 Glucose 87 mg/dL (74-99) 12/15/17 06:51 Calcium 9.0 mg/dL (8.4-10.2) 12/15/17 06:51 Total Bilirubin 0.5 mg/dL (0.2-1.3) 12/13/17 13:40 AST 26 U/L (14-36) 12/13/17 13:40 ALT 30 U/L (9-52) 12/13/17 13:40 Alkaline Phosphatase 97 U/L (38-126) 12/13/17 13:40 Total Protein 5.6 g/dL (6.3-8.2) L 12/13/17 13:40 Albumin 3.3 g/dL (3.5-5.0) L 12/13/17 13:40 Amylase 67 U/L (30-110) 12/13/17 13:40 Lipase 146 U/L (23-300) 12/13/17 13:40 Urine Color Yellow 12/13/17 13:00 Urine Appearance Cloudy (Clear) H 12/13/17 13:00 Urine pH 5.0 (5.0-8.0) 12/13/17 13:00 Ur Specific [place] 1.013 (1.001-1.035) 12/13/17 13:00 Urine Protein Trace (Negative) H 12/13/17 13:00 Urine Glucose (UA) Negative (Negative) 12/13/17 13:00 Urine Ketones Negative (Negative) 12/13/17 13:00 Urine Blood Small (Negative) H 12/13/17 13:00 Urine Nitrite Negative (Negative) 12/13/17 13:00 Urine Bilirubin Negative (Negative) 12/13/17 13:00 Urine Urobilinogen <2.0 mg/dL (<2.0) 12/13/17 13:00 Ur Leukocyte Esterase Large (Negative) H 12/13/17 13:00 Urine RBC 18 /hpf (0-5) H 12/13/17 13:00 Urine WBC 53 /hpf (0-5) H 12/13/17 13:00 Ur Squamous Epith Cells 2 /hpf (0-4) 12/13/17 13:00 Hyaline Casts 34 /lpf (0-2) H 12/13/17 13:00 Urine Mucus Occasional /hpf (None) H 12/13/17 13:00 Microbiology 12/13/17 13:40 Blood Blood Culture - Preliminary No Growth after 48 hours 12/13/17 13:00 Urine,Voided Urine Culture - Final Assessment and Plan (1) Failure of outpatient treatment Narrative/Plan: 82-year-old female has a history of nephrolithiasis and has been followed in the outpatient setting urologist. Despite recent courses of antibiotic therapy remains symptomatic and had significant worsening of her symptoms and constantly presented to the emergency center. With the failure of the outpatient antibiotic therapy she has been admitted. She was placed on Rocephin but developed a significant drug eruption this is been discontinued and fortunately she's had a good response to treatment. If this time Azactam will be utilized for treatment of the recently isolated E. coli which is a, pathogen for her. Urology is contemplating cystoscopy. There is the option at this point in time to plan an outpatient course of antibiotic therapy for several weeks and admits of her therapy she could potentially have her intervention and possibly removal of bladder stone rather stones while she is receiving antibiotic therapy. There is concerns of the stones are the nidus for her ongoing infection. Hopefully with antibiotic therapy she will rapidly start him improvement of her symptoms. She does have mild dehydration and over with hydration the acute kidney injury rapidly improve. Information is related to the and daughter who are present. 12/15/2017 revealed the patient to be considerably improved. E. coli was found in the urine culture and she did have a significant eruption from the Rocephin. Now receiving Azactam with improvement of fever leukocytosis and resolution of her rash. Case is discussed with the patient and daughter and they agree for her to come to the outpatient infusion center for her antibiotic therapy daily for a couple of weeks for this complicated urinary tract infection. Ertapenem will be utilize 1 g daily for now and this is sent to the insurance purifiers to make sure she can come to the office in the outpatient setting. The patient will have a midline placed and would expect discharge home tomorrow if possible Current Visit: Yes Status: Acute Code(s): Z78.9 - OTHER SPECIFIED HEALTH STATUS SNOMED Code(s): 750162014 (2) Urinary tract infection Current Visit: Yes Status: Acute Code(s): N39.0 - URINARY TRACT INFECTION, SITE NOT SPECIFIED SNOMED Code(s): 33637785 (3) Bilateral nephrolithiasis Current Visit: Yes Status: Acute Code(s): N20.0 - CALCULUS OF KIDNEY SNOMED Code(s): 37645677
[2017-12-16] MEDS: LEVOTHYROXINE 88 MCG TAB PO SCH (05:55)
[2017-12-16] MEDS: AZTREONAM 2 GM in SODIUM CHLORIDE 0.9% 100 ML IVPB SCH (05:55)
[2017-12-16] MEDS: SODIUM CHLORIDE 0.9% 1,000 ML IV SCH ×2 (06:01→12:35)
[2017-12-16] MEDS ORDERED: PANTOPRAZOLE 40 MG TABLET PO SCH (07:30)
[2017-12-16 07:37] VITALS: BP 156/80; PULSE 64; TEMP 97
[2017-12-16] MEDS: APIXABAN 2.5 MG TABLET PO SCH (10:22)
[2017-12-16] MEDS: METOPROLOL TARTRATE 25 MG TAB PO SCH (10:22)
[2017-12-16] MEDS: PREGABALIN 50 MG CAP PO SCH (10:22)
[2017-12-16] MEDS: CYANOCOBALAMIN 500 MCG TAB PO SCH (11:45)
[2017-12-16] MEDS ORDERED: ERTAPENEM 1 GM in SODIUM CHLORIDE 0.9% 50 ML IVPB SCH (12:30)
[2017-12-16] MEDS: MAGNESIUM OXIDE 400 MG TAB PO SCH (12:38)
[2017-12-16] MEDS: CHOLECALCIFEROL 1,000 UNIT TAB PO SCH (12:38)
--- NOTE | 2017-12-16 15:17 | DS ---
DISCHARGE SUMMARY FINAL DIAGNOSES: 1. Acute urinary tract infection, present on admission, with failed outpatient treatment with resistant Escherichia coli. 2. Nephrolithiasis. 3. Paroxysmal atrial fibrillation. 4. Spinal stenosis. 5. Hypertension. DISCHARGE DISPOSITION: The patient will be discharged in stable condition with guarded prognosis. Total time taken 35 minutes. HISTORY OF PRESENT ILLNESS: This 82-year-old woman with a past medical history of multiple medical problems was admitted with resistant UTI with failed outpatient treatment. Patient was treated with broad-spectrum IV antibiotics. Cultures are noted. Dr. Lovell and Dr. Chavez saw the patient. The patient was given Invanz and outpatient followup was suggested. A mid line line was placed. On exam, vitals are stable. CARDIOVASCULAR SYSTEM: S1, S2 muffled. ABDOMEN: Soft. NERVOUS SYSTEM: No focal deficit. LABS: WBC 5.5, hemoglobin 9.8. The most recent cultures are negative. So the patient is being discharged in stable condition with guarded prognosis. DISCHARGE ADVICE AND MEDICATIONS: 1. Diet is cardiac. 2. Activity limited until followup. 3. Follow up with Dr. Keith Yadav in 2 to 3 days. 4. Follow up with Dr. Lovell as advised. 5. Mid line care and ertapenem outpatient. 6. Tylenol 650 q.6 p.r.n. 7. Eliquis 2.5 mg p.o. b.i.d. 8. Vitamin D3 1000 daily. 9. Vitamin B12 1000 mcg p.o. daily. 10.Invanz 1 gram daily for 2 weeks. 11.Synthroid 88 mcg p.o. daily. 12.Magnesium oxide 500 mg p.o. daily. 13.Mobic 15 mg p.o. daily. 14.Lopressor 25 mg p.o. b.i.d. 15.Prilosec 20 mg p.o. daily. 16.Lyrica 50 mg p.o. b.i.d. 17.Follow up with Urology as recommended. Once again, the patient will be discharged in stable condition with guarded prognosis. MMODL / IJN: [id number] /
--- NOTE | 2017-12-16 16:12 | P.PN ---
Subjective Progress Note Date: 12/16/17 Pleasant 82-year-old female presents to Hospital a several month history of difficulties with urinary tract infection. She's been cared for in the outpatient setting and has been treated with multiple courses of antibiotic therapy. Most recently had a 30 day course of Macrobid but has remained symptomatic. The patient continued to have some fever she was having malaise she's having some nausea without jm emesis and ongoing significant urinary discomfort with frequency as well as progressive flank pain. Because of her failure of outpatient antibiotic therapy she's been admitted to hospital and has been seen by urology and infectious disease consultation was requested regarding antibiotic therapy. She was treated with Rocephin in the emergency center and developed a drug eruption responded well to a course of Benadryl. She reports she is feeling slightly better this afternoon. She's had hydration and the first dose of adequate antibiotic therapy however with a drug eruption and other ALLERGIES alternative antibiotic therapy required. She this time is denying other acute difficulties except she's had some mild weight loss she's not been eating very well. She's not had hematuria but does have significant frequency and nocturia. Does not recall passing a stone recently 12/15/2017 the patient is feeling somewhat better. She is denying intermittent troubles at this time. Fevers started to improve. She denying nausea or emesis. She is tolerating the current antibiotic therapy well without difficulties. No further rashes noted. 12/16/2017 patient is now improved. Ready for discharge to home. Objective - Vital Signs Vital signs: Vital Signs Temp 97.0 F L 12/16/17 07:00 Pulse 64 12/16/17 07:00 Resp 16 12/16/17 07:00 BP 156/80 12/16/17 07:00 Pulse Ox 94 L 12/16/17 07:00 Intake & Output 12/15/17 12/16/17 12/16/17 18:59 06:59 18:59 Intake Total 525 Balance 525 Intake: Intake, IV Titration 525 Amount Sodium Chloride 0.9% 1, 525 000 ml @ 120 mls/hr IV . Q8H20M [facility] Rx#:[id number] Other: Voiding Method Toilet Toilet Toilet Diaper Diaper Incontinent # Voids 2 6 - Exam Gen: This is an 82-year-old female. She is sitting in bed and appears to be quite uncomfortable HEENT: Head is atraumatic, normocephalic. Pupils equal, round. Sclerae is anicteric. Conjunctiva pink. Mucous members of the mouth are moist. Dentition is in good order for age. NECK: Supple. No JVD. No lymphadenopathy. No thyromegaly. LUNGS: Clear to auscultation. No wheezes or rhonchi. No intercostal retractions. HEART: Regular rate and rhythm. No murmur. Normal S1 and S2 soft S4 no click or rub ABDOMEN: Soft. Bowel sounds are present. No masses. No tenderness. Has mild suprapubic tenderness and has bilateral flank tenderness left somewhat greater than right EXTREMITIES: No pedal edema. No calf tenderness. Has chronic arthritic changes to her hands and feet but no acute flares at this time NEUROLOGICAL: Patient is awake, alert and oriented x3 no acute gross focal sensory motor deficits - Labs CBC & Chem 7: 12/15/17 06:51 12/15/17 06:51 Labs: Microbiology - Last 24 Hours (Table) 12/13/17 13:40 Blood Culture - Preliminary Blood No Growth after 72 hours Assessment and Plan (1) Failure of outpatient treatment Narrative/Plan: 82-year-old female has a history of nephrolithiasis and has been followed in the outpatient setting urologist. Despite recent courses of antibiotic therapy remains symptomatic and had significant worsening of her symptoms and constantly presented to the emergency center. With the failure of the outpatient antibiotic therapy she has been admitted. She was placed on Rocephin but developed a significant drug eruption this is been discontinued and fortunately she's had a good response to treatment. If this time Azactam will be utilized for treatment of the recently isolated E. coli which is a, pathogen for her. Urology is contemplating cystoscopy. There is the option at this point in time to plan an outpatient course of antibiotic therapy for several weeks and admits of her therapy she could potentially have her intervention and possibly removal of bladder stone rather stones while she is receiving antibiotic therapy. There is concerns of the stones are the nidus for her ongoing infection. Hopefully with antibiotic therapy she will rapidly start him improvement of her symptoms. She does have mild dehydration and over with hydration the acute kidney injury rapidly improve. Information is related to the and daughter who are present. 12/15/2017 revealed the patient to be considerably improved. E. coli was found in the urine culture and she did have a significant eruption from the Rocephin. Now receiving Azactam with improvement of fever leukocytosis and resolution of her rash. Case is discussed with the patient and daughter and they agree for her to come to the outpatient infusion center for her antibiotic therapy daily for a couple of weeks for this complicated urinary tract infection. Ertapenem will be utilize 1 g daily for now and this is sent to the insurance purifiers to make sure she can come to the office in the outpatient setting. The patient will have a midline placed and would expect discharge home tomorrow if possible 12/16/2017 patient is steadily improved. Tolerating her antibiotic therapy at this time of Invanz without difficulty. She will be coming to the office for 2 weeks of outpatient intravenous antibiotic therapy for multidrug resistant organism. Arrangements are all May discharged today Status: Acute Code(s): Z78.9 - OTHER SPECIFIED HEALTH STATUS SNOMED Code(s) : 961073918 (2) Urinary tract infection Status: Acute Code(s): N39.0 - URINARY TRACT INFECTION, SITE NOT SPECIFIED SNOMED Code(s): 99722636 (3) Bilateral nephrolithiasis Status: Acute Code(s): N20.0 - CALCULUS OF KIDNEY SNOMED Code(s): 11668235
== END 2017-12-16 15:05 | disposition home or self-care (01) | DRG 690 ==
LOC: EC 12:07 → 5MS5E 16:08
PROVIDERS: ADMIT Family Medicine; ATTEND Family Medicine
PROC: 05HY33Z Insertion of Infusion Device into Upper Vein, Percutaneous Approach (ICD-10-PCS; principal; 2017-12-15 13:50)
DX: N39.0 Urinary tract infection, site not specified (principal); N17.9 Acute kidney failure, unspecified; E86.0 Dehydration; I10 Essential (primary) hypertension; I48.0 Paroxysmal atrial fibrillation; L27.0 Generalized skin eruption due to drugs and medicaments taken internally; M48.00 Spinal stenosis, site unspecified; N20.0 Calculus of kidney; T36.1X5A Adverse effect of cephalosporins and other beta-lactam antibiotics, initial encounter; Z79.01 Long term (current) use of anticoagulants; Z79.1 Long term (current) use of non-steroidal anti-inflammatories (NSAID); Z79.52 Long term (current) use of systemic steroids; Z79.899 Other long term (current) drug therapy; Z82.61 Family history of arthritis; Z87.440 Personal history of urinary (tract) infections; Z87.442 Personal history of urinary calculi; Z87.891 Personal history of nicotine dependence; Z79.890 Hormone replacement therapy; Z88.2 Allergy status to sulfonamides; Z88.8 Allergy status to other drugs, medicaments and biological substances; Z91.040 Latex allergy status; Z90.49 Acquired absence of other specified parts of digestive tract; Z98.42 Cataract extraction status, left eye; Z98.41 Cataract extraction status, right eye; Z96.1 Presence of intraocular lens; B96.20 Unspecified Escherichia coli [E. coli] as the cause of diseases classified elsewhere
CPT/HCPCS: 36415; 36569; 74018; 74176; 76937; 80048; 80053; 81001; 82150; 83690; 85025; 85610; 85730; 87040; 87086; 96361; 96374; 96376; 99285

== ENCOUNTER 2017-12-21 12:23 | Day surgery (SDC) | payer MEDICARE, BC ==
[2017-12-19 15:20] VITALS: BMI 29.2
--- NOTE | 2017-12-20 22:18 | P.GSHP ---
History of Present Illness H&P Date: 12/19/17 Chief Complaint: Recurrent UTI The patient is an 82 year old woman with a history of urolithiasis, who has been treated for E. coli UTI's. She was recently admitted with a UTI which has required outpatient IV Invanz. - Constitutional Constitutional: Reports weakness - Genitourinary (Female) Genitourinary: Reports dysuria, Reports flank pain Past Medical History Past Medical History: Atrial Fibrillation, Osteoarthritis (OA) Additional Past Medical History / Comment(s): History of nephrolithiasis and kidney stones, history of recurrent urine tract infections, history of E. coli septicemia back in February 2016, urinary incontinence, spinal stenosis, degenerative arthritis, chronic back pain, bilateral leg and feet pain with L side worse, varicose veins, diverticullosis/diverticulitis, previous exposure to ESBL producing E. 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 Past Anesthesia/Blood Transfusion Reactions: No Reported Reaction Additional Psychological History / Comment(s): History of prior tobacco use. No severe alcohol use. Stopped smoking in 1987. She has no pet exposures. No travel. [place] at [place] [facility] [place] She lives with her . She last was on a cruise in May 2016. Relates that her mother had arthritis Smoking Status: Former smoker - Past Family History Brother(s) History Unknown: Yes Family Medical History: Cancer Sister(s) Family Medical History: Deep Vein Thrombosis (DVT) Additional Family Medical History / Comment(s): DVT IN GROIN Mother Family Medical History: No Reported History Father History Unknown: Yes Family Medical History: Unable to Obtain Additional Family Medical History / Comment(s): Pt did not know her biological father. Medications and Allergies Home Medications Medication Instructions Recorded Confirmed Type Cyanocobalamin [Vitamin B-12] 1,000 mcg PO DAILY 03/10/16 12/19/17 History Apixaban [Eliquis] 2.5 mg PO BID #0 tablet 06/03/16 12/19/17 Rx Metoprolol Tartrate [Lopressor] 25 mg PO BID tab 06/03/16 12/19/17 Rx Cholecalciferol [Vitamin D3] 1,000 unit PO DAILY 04/08/17 12/19/17 History Levothyroxine Sodium [Synthroid] 88 mcg PO DAILY 04/08/17 12/19/17 History Omeprazole [PriLOSEC] 20 mg PO DAILY 08/08/17 12/19/17 History Pregabalin [Lyrica] 50 mg PO BID 08/08/17 12/19/17 History Magnesium Oxide [Mag-Ox] 500 mg PO DAILY 12/13/17 12/19/17 History Meloxicam [Mobic] 15 mg PO DAILY 12/13/17 12/19/17 History Ertapenem [INVanz] 1 gm IVPB Q24H #14 bag 12/15/17 12/19/17 Rx Acetaminophen Tab [Tylenol] 650 mg PO Q6HR PRN tab 12/16/17 12/19/17 Rx ALPRAZolam [Xanax] 0.25 mg PO DIRECTED PRN 12/19/17 12/19/17 History Allergies Allergy/AdvReac Type Severity Reaction Status Date / Time adhesive Allergy Severe Rash/Hives Verified 12/19/17 14:22 latex Allergy Severe Rash/Hives Verified 12/19/17 14:22 nitrofurantoin Allergy Unknown Nausea & Verified 12/19/17 14:23 [From Macrobid] Vomiting & Diarrhea ceftriaxone [From Rocephin] Allergy Rash/Hives Verified 12/19/17 14:22 levofloxacin [From Levaquin] AdvReac Severe Nausea & Verified 12/19/17 14:22 Vomiting & Diarrhea sulfamethoxazole AdvReac Mild Nausea & Verified 12/19/17 14:22 [From Bactrim] Vomiting trimethoprim [From Bactrim] AdvReac Mild Nausea & Verified 12/19/17 14:22 Vomiting Surgical - Exam - General well developed, well nourished, no distress - Respiratory normal respiratory effort - Abdomen Abdomen: soft, non tender, no guarding, no rigid, no rebound - Psychiatric oriented to time, oriented to person, oriented to place, speech is normal, memory intact Assessment and Plan (1) Calculus of kidney Status: Acute Code(s): N20.0 - CALCULUS OF KIDNEY SNOMED Code(s): 57329864 Plan: The patient has been treated for recurrent E. coli UTIs, suggesting the possibility that her right renal calculi are infected. The computed tomography scan shows bilateral renal calculi. The right kidney contains approximately 6 renal calculi, the largest of which measures 9 mm in diameter. She is currently being treated with aztreonam. She understands that it may be necessary to remove her renal calculi in order to prevent future UTIs. It is not felt that her stone burden warrants a percutaneous nephrolithotomy, and she prefers ureteroscopy with laser lithotripsy over ESWL. She has previously undergone this procedure, and understands potential risks to include anesthesia , bleeding, infection, ureteral injury, and urinary leak. She also understands the fact that she will require a ureteral stent postoperatively.
[~2017-12-21 12:23] MED LIST changes: -FAMOTIDINE 20 MG/2 ML VIAL IV PRN; -HYDROmorphone 1 MG/ML 1 ML SYRINGE IVP PRN; -LACTATED RINGERS 1,000 ML IV SCH; -LIDOCAINE 1% 20 ML VIAL (10MG/ML) FOR IV START INTRADERMA PRN; +Pre Op ABX Message 1 EACH MISC MISCELLANE ONE; -ceFAZolin 2 GM in SODIUM CHLORIDE 0.9% 100 ML IVPB ONE
[2017-12-21] MEDS ORDERED: ONDANSETRON 4 MG/2 ML VIAL IVP ONE (13:05)
[2017-12-21] MEDS ORDERED: LACTATED RINGERS 1,000 ML IV SCH (13:05)
[2017-12-21] MEDS ORDERED: MORPHINE SULFATE 4 MG/ML SYRINGE IV PRN (13:05)
[2017-12-21] MEDS ORDERED: DEXAMETHASONE SOD PHOSPHATE 10 MG/ML 1 ML VIAL IV ONE (13:05)
[2017-12-21 13:18] VITALS: RESP 16
[2017-12-21] MEDS ORDERED: LIDOCAINE 1% 20 ML VIAL (10MG/ML) FOR IV START INTRADERMA ONE (13:28)
[2017-12-21] MEDS ORDERED: PROPOFOL 10 MG/ML 20 ML VIAL IV ONE (14:31)
[2017-12-21] MEDS ORDERED: MIDAZOLAM 2 MG/2 ML VIAL ONE (14:31)
[2017-12-21] MEDS ORDERED: SUCCINYLCHOLINE CHLORIDE 100 MG/5 ML SYR IV ONE (14:31)
[2017-12-21] MEDS ORDERED: ePHEDrine SULFATE/0.9% NACL/PF 50 MG/5 ML SYRINGE IV ONE (14:31)
[2017-12-21] MEDS ORDERED: fentaNYL (PF) 50 MCG/ML 2 ML AMP ONE (14:31)
[2017-12-21] MEDS ORDERED: LABETALOL 5 MG/ML VIAL MDV ONE (14:31)
[2017-12-21] MEDS ORDERED: LIDOCAINE 1% INJ 10MG/ML (20 ML MDV) ONE (14:31)
--- NOTE | 2017-12-21 15:23 | XR ---
"Abdomen HISTORY: Right renal calculi Frontal view of the abdomen correlated to prior abdomen and CT abdomen pelvis 12/13/2017 There are calcifications again noted within the lower pole of the right renal collecting system as on prior exam measuring approximately 9 12 mm respectively smaller fragments within the kidneys not as well seen. Lower pole left renal calculus is also present as on prior measuring approximately 5-6 mm. Multiple calcifications are again noted within the pelvis similar to prior exam. Abnormal increased attenuation present at the left lung base obscures the hemidiaphragm. Surgical clips are present in t he left upper quadrant. Surgical clips also present in the right upper quadrant. Phleboliths present along the gonadal vein region on the right. Arthropathy change present within the hips. Central endpl ate superior compression deformity noted at L2 and L1 level. IMPRESSION: Bilateral nephrolithiasis. Difficult to exclude left lower lobe atelectasis versus pneumo raúl, consider chest x-ray for correlation. A Yellow level critical message alert has been initiated for Parth Chavez MD via the [employer] | Critical Results System on 12/21/2017 3:20 PM. This message alert has been sent to Carmen Oliver via the preferences provided by the clinician for the receipt of Radiology Critical Findings. Romero [employer] ID [id number]."
[2017-12-21 17:28] VITALS: TEMP 98
--- NOTE | 2017-12-21 17:48 | P.OP ---
Date of Procedure: 12/21/17 Preoperative Diagnosis: Right renal calculi Postoperative Diagnosis: Same Procedure(s) Performed: Cystoscopy, right ureteroscopy with Holmium laser lithotripsy and stone basketing, right ureteral stent insertion Anesthesia: DO Surgeon: Parth Chavez Estimated Blood Loss (ml): 10 IV fluids (ml): 500 Pathology: none sent Condition: stable Disposition: PACU Indications for Procedure: The patient has been treated for recurrent E. coli UTIs, suggesting the possibility that her right renal calculi are infected. The computed tomography scan shows bilateral renal calculi. The right kidney contains approximately 6 renal calculi, the largest of which measures 9 mm in diameter. She is currently being treated with aztreonam. She understands that it may be necessary to remove her renal calculi in order to prevent future UTIs. It is not felt that her stone burden warrants a percutaneous nephrolithotomy, and she prefers ureteroscopy with laser lithotripsy over ESWL. She understands the fact that she will require a ureteral stent postoperatively. Operative Findings: 2 large right lower pole calyceal calculi. One was impacted within a calyceal diverticulum. Description of Procedure: The patient was taken to the operating room and placed in the dorsolithotomy position, with legs supported in Fernando stirrups. The external genitalia was prepped and draped sterilely. The 30 lens was used to introduce the 19-Indian Stortz cystoscopic sheath through the urethra and into the bladder under direct vision. The bladder was examined in its entirety. Both ureteral orifices were normal anatomic location and configuration, and clear urine effluxed from both. No tumors or foreign bodies were seen. A 0.038 inch Glidewire was passed through the cystoscope. The right ureteral orifice was cannulated, and the Glidewire was advanced up to the right renal pelvis. An 11/13-Indian ureteral access catheter was passed over the wire, up to the right renal pelvis. The Olympus flexible ureteroscope was passed through the ureteral access catheter sheath and into the right renal pelvis. 2 lower pole calculi could be seen on fluoroscopy. The first of these was identified within a lower pole calyx. The 200 micron Holmium laser probe was passed through the ureteroscope, and lithotripsy was performed. Initially, a dusting technique was utilized. However, due to angulation it was difficult to maintain laser contact with the calculus. Therefore, the calculus was fragmented, and irrigation was utilized to irrigate all calculus fragments out of that calyx. The calyx was verified to be empty, but a calculus could still be seen on fluoroscopy. A small opening was noted adjacent to the calyx which was treated, and it was evident that this was a narrowed infundibulum leading to a calyceal diverticulum. The wall of the infundibulum was incised, allowing access to the calculus. This was fragmented, and again irrigation was utilized to remove the calculus fragments from this calyx. Only a couple of small calculus fragments remained, the largest of which was basketed and removed using a 1.9-Indian nitinol basket. After seeing how small this calculus fragment was, it was felt that additional basketing was unwarranted. The ureteral access catheter was removed. The Glidewire was passed through the cystoscope, and up to the right renal pelvis. A 24 cm, 6-Indian double-J ureteral stent was placed over the wire. Proper stent positioning was verified fluoroscopically and endoscopically. The bladder was emptied and the cystoscope removed. The bladder was emptied and the cystoscope removed. The patient tolerated the procedure well and was taken to the recovery room in stable condition.
[2017-12-21] MEDS ORDERED: ACETAMINOPHEN TAB 325 MG TAB PO ONE (18:57)
[2017-12-21 19:28] VITALS: BP 166/82; PULSE 72
--- NOTE | 2017-12-22 09:32 | FL ---
Fluoroscopy HISTORY: Right renal calculi 46 seconds fluoroscopy time supplied to the referring clinician. 1 intraoperative C-arm images docum ent the procedure. See dictated report from urology.
== END 2017-12-21 19:47 | disposition home or self-care (01) ==
LOC: OR 12:23
PROVIDERS: ATTEND Urology
DX: N20.0 Calculus of kidney (principal); I10 Essential (primary) hypertension; I48.0 Paroxysmal atrial fibrillation; M19.90 Unspecified osteoarthritis, unspecified site; R39.81 Functional urinary incontinence; M48.00 Spinal stenosis, site unspecified; G89.29 Other chronic pain; M54.9 Dorsalgia, unspecified; Z87.891 Personal history of nicotine dependence; Z79.01 Long term (current) use of anticoagulants; Z79.890 Hormone replacement therapy; Z79.1 Long term (current) use of non-steroidal anti-inflammatories (NSAID); Z79.899 Other long term (current) drug therapy; Z88.1 Allergy status to other antibiotic agents; Z91.040 Latex allergy status; Z88.2 Allergy status to sulfonamides; Z91.09 Other allergy status, other than to drugs and biological substances
CPT/HCPCS: 74420; 74018; 52352; 52332; C2625; C1769; J1100; J2405

== ENCOUNTER → 2017-12-27 | Outpatient (CLI) | payer MEDICARE, BC ==
--- NOTE | 2017-12-27 12:27 | XR ---
Abdomen HISTORY: Calculus of kidney, right flank pain Frontal view of the abdomen on 2 images correlated to prior exam 12/21/2017, CT abdomen pelvis 12/14/19 18 There is been interval placement of a double-J right ureteral stent. Surgical clips are stable. There are calcifications along the distribution of the stent are likely phleboliths, calcifications are ag ain noted within the pelvis. Calcifications of the lower pole of the right kidney appeared fragmented , only punctate densities remain at this level. IMPRESSION: Interval stent placement, question interval lithotripsy as described.
== END | disposition home or self-care (01) ==
LOC: RADXRMAIN 11:12
PROVIDERS: ATTEND Urology
DX: N20.0 Calculus of kidney (principal); Z96.0 Presence of urogenital implants
CPT/HCPCS: 74018

== ENCOUNTER → 2018-02-02 | Outpatient (CLI) | payer MEDICARE, BC ==
--- NOTE | 2018-02-02 13:35 | XR ---
Lumbar spine HISTORY: Chronic low back pain 3 views of the lumbar spine correlated to CT abdomen pelvis 12/13/2017, prior lumbar spine 10/15/2014 Superior endplate of L1 show some mild depression which is an interval finding compared to prior plai n film but was seen on prior CT suggesting Schmorl's node. Superior endplate depression compatible wi th Schmorl's node present at L2. Lumbar vertebral bodies show stable bone mineralization is reduced. There is multilevel spondylosis. Loss of disc height present L4-5 and L5-S1 greater than L3-4, possib le vacuum phenomenon present at L5-S1. Sclerosis present in the posterior elements of the lower lumba r spine. Alignment is maintained. Vascular calcifications noted within the aortoiliac distribution. Surgical clips present in the upper abdomen. Patient's renal calcifications have decreased in conspic uity. Phleboliths noted in the paraspinal location. IMPRESSION: Degenerative disc disease, facet arthropathy. Multilevel Schmorl's node formation.
== END | disposition home or self-care (01) ==
LOC: RADXRMAIN 11:11
PROVIDERS: ATTEND Family Medicine
DX: M51.36 Other intervertebral disc degeneration, lumbar region (principal); M46.86 Other specified inflammatory spondylopathies, lumbar region; M51.46 Schmorl's nodes, lumbar region; M54.30 Sciatica, unspecified side
CPT/HCPCS: 72100

== ENCOUNTER → 2018-02-21 | Outpatient (CLI) | payer MEDICARE, BC ==
--- NOTE | 2018-02-21 16:44 | BD ---
EXAMINATION TYPE: Axial Bone Density DATE OF EXAM: 02/21/2018 COMPARISON: 01.06.2016 CLINICAL HISTORY: 82 YR OLD FEMALE.....ICD-10 CODE: M85.9 KNOWN OSTEOPENIA Height: 61.3 Weight: 167 FRAX RISK QUESTIONS: NOTHING ADDITIONAL TO NOTE HERE RISK FACTORS HISTORY OF: Active: BEST SHE CAN Diet low in dairy products/other sources of calcium: NO Postmenopausal woman: YES, IN HER 50s Lost more than 2 inches in height since high school: YES Frequent falls: ELDERLY MEDICATIONS: Thyroid Medications: YES, SYNTHROID, 20 YRS + Additional Medications: LYRICA, VIT D3, BP MEDS, LIPITOR IN THE PAST Additional History: ARTHRITIS, HYPERTENSION, NERVE PAIN EXAM MEASUREMENTS: Bone mineral densitometry was performed using the [employer] System. Bone mineral density as measured about the Lumbar spine is: ----- L1-L4(G/cm2): 1.103 T Score Values are as follows: ----- L1: -0.5 ----- L2: -0.9 ----- L3: -0.4 ----- L4: -0.9 ----- L1-L4: -0.6 Bone mineral density has: Increased 2.3% since study of: 01.06.2016 Bone mineral density about the R hip (g/cm2): 0.887 Bone mineral density about the L hip (g/cm2): 0.882 T Score values are as follows: -----R Neck: -1.4 -----L Neck: -1.4 -----R Total: -1.0 -----L Total: -1.0 Bone mineral density has: Increased 8.2% since study of: 01.06.2016 FRAX%s: THERE IS A 12.7% CHANCE OF A MAJOR OSTEOPOROTIC FX AND A 3.2% FOR A HIP FX......PROBABILIT Y OF FX IN 10 YRS TIME IMPRESSION: Osteopenia (T Score between -2.5 and -1). There is slightly increased risk of fracture and the patient may be considered for treatment. Re-Screen 2-5 years. NOTE: T-SCORE=SD OF THE YOUNG ADULT MEAN.
--- NOTE | 2018-02-22 12:31 | MM ---
Reason for exam: screening (asymptomatic). Last mammogram was performed 1 year and 1 month ago. History: Patient is postmenopausal and has history of high-risk lesion on a previous biopsy at age 69. Excisional biopsy of the left breast, February 19, 2005. High risk left mammotome panel of the left breast, January 08, 2005. High risk left mammotome panel of the left breast, January 08, 2005. Cyst aspiration of the right breast. Physical Findings: A clinical breast exam by your physician is recommended on an annual basis and results should be correlated with mammographic findings. MG 3D Screening Mammo W/Cad Bilateral CC and MLO view(s) were taken. Prior study comparison: January 06, 2017, bilateral MG 3d screening mammo w/cad. January 06, 2016, bilateral MG 3d diag mammo w/cad PB. The breast tissue is heterogeneously dense. This may lower the sensitivity of mammography. Stable benign calcifications. There is chronic nodularity bilaterally. There is no dominant lesion. No significant changes when compared with prior studies. ASSESSMENT: Benign, BI-RAD 2 RECOMMENDATION: Routine screening mammogram of both breasts in 1 year.
== END | disposition home or self-care (01) ==
LOC: RADMAMWWP 09:11
PROVIDERS: ATTEND Obstetrics & Gynecology
DX: Z12.31 Encounter for screening mammogram for malignant neoplasm of breast (principal); Z13.820 Encounter for screening for osteoporosis; M85.80 Other specified disorders of bone density and structure, unspecified site
CPT/HCPCS: 77063; 77067; 77080

== ENCOUNTER → 2018-02-22 | Outpatient (CLI) | payer MEDICARE, BC ==
--- NOTE | 2018-02-22 12:52 | XR ---
Abdomen HISTORY: Calculus of kidney Frontal view of the abdomen on 2 images correlated to prior abdomen dated 12/27/2017, ultrasound kidney s 02/22/2018 There is been interval removal of double-J stent. Surgical clips are again noted in the upper abdomen . Lung bases are clear. There is no evident bowel obstruction. There are calcifications at the parasp inal location on the right as previously identified. Multiple calcifications are again noted within t he pelvis. Calcifications are questioned overlying the lower pole of the right kidney, there is overl louise bowel gas. Degenerative disc changes in the visualized spine. IMPRESSION: Interval stent removal. Multiple indeterminate abdominal calcifications.
--- NOTE | 2018-02-22 16:54 | US ---
EXAMINATION TYPE: US kidneys/renal and bladder DATE OF EXAM: 02/22/2018 COMPARISON: NONE CLINICAL HISTORY: N20.0 Calculus of kidney. History of kidney stones EXAM MEASUREMENTS: Right Kidney: 9.7 x 4.6 x 5.0 cm Left Kidney: 9.3 x 5.3 x 4.5 cm Right Kidney: minimal dilated collecting system, stones noted lower pole with largest = 0.8cm Left Kidney: probable stones, largest = 0.5cm at lower pole Bladder: possible stone = 1.0cm Bilateral Jets seen: yes there are bilateral nonobstructing renal stones. There appears to be a lar ge calcification within the dependent portion of the urinary bladder is well. IMPRESSION: Renal and urinary bladder calcifications.
== END | disposition home or self-care (01) ==
LOC: RADUSWWP 09:34
PROVIDERS: ATTEND Urology
DX: N28.89 Other specified disorders of kidney and ureter (principal); N32.89 Other specified disorders of bladder; N20.0 Calculus of kidney
CPT/HCPCS: 74018; 76770

== ENCOUNTER → 2018-06-22 | Outpatient (CLI) | payer MEDICARE, BC ==
--- NOTE | 2018-06-22 16:46 | US ---
EXAMINATION TYPE: US transvaginal DATE OF EXAM: 06/22/2018 COMPARISON: CT 12/13/17 CLINICAL HISTORY: N95.0 post menopausal bleeding, patient on Eliquis, patient has some incontinence. TECHNIQUE: Transvaginal (TV). Transabdominal sonographic images of the pelvis were attempted. Patie nt unable to fill her bladder enough for visualization of uterus. Patient unable to well empty her bl adder for visualization of transvaginal study. Study technically difficult and limited. Date of LMP: Around 51, patient 82. EXAM MEASUREMENTS: Uterus: 5.6 x 2.8 x 2.6 cm Endometrial Stripe: 3mm Right Ovary: not visualized probable atrophy Left Ovary: not visualized probable atrophy 1. Uterus: Anteverted, limited views appear wnl, not well seen 2. Endometrium: limited views appear wnl, not well seen 3. Right Ovary: not visualized probable atrophy 4. Left Ovary: not visualized probable atrophy 5. Bilateral Adnexa: wnl 6. Posterior cul-de-sac: wnl IMPRESSION: 1. Essentially nondiagnostic exam. No suspicious abnormality is identified. Structures are poorly vis ualized during this exam.
== END ==
LOC: RADUSWWP 14:55
PROVIDERS: ATTEND Obstetrics & Gynecology
DX: N95.0 Postmenopausal bleeding (principal)
CPT/HCPCS: 76830

== ENCOUNTER → 2018-10-05 | Outpatient (CLI) | payer MEDICARE, BC ==
--- NOTE | 2018-10-05 14:46 | XR ---
Lumbar spine HISTORY: Low back pain 3 views of the lumbar spine correlated prior exam 02/02/2018 Surgical clips present in the upper abdomen. Possible phleboliths in the paraspinal location, pelvis. Lumbar vertebral bodies show stable height, alignment, bone mineralization is reduced. Mild anterior wedging the anterior aspect of L1 is a stable finding. There is multilevel spondylosis. Loss of disc height present at intervertebral levels. Sclerosis present in the posterior elements of lower lumbar spine. IMPRESSION: Degenerative disc disease, facet arthropathy, osteopenia. Stable superior endplate depres jessie at L1.
== END ==
LOC: RADXRMAIN 10:27
PROVIDERS: ATTEND Family Medicine
DX: M51.16 Intervertebral disc disorders with radiculopathy, lumbar region (principal); M46.96 Unspecified inflammatory spondylopathy, lumbar region; M85.88 Other specified disorders of bone density and structure, other site
CPT/HCPCS: 72100

== ENCOUNTER → 2018-11-15 | Outpatient (CLI) | payer MEDICARE, BC ==
--- NOTE | 2018-11-15 13:19 | XR ---
EXAMINATION TYPE: XR Hip Bilateral and AP pelvis DATE OF EXAM: 11/15/2018 COMPARISON: NONE HISTORY: Pain TECHNIQUE: A single AP view of the pelvis is obtained. Two views of the bilateral hip are obtained. FINDINGS: There is no acute fracture/dislocation evident in the pelvis. A calcification overlying th e lower pelvis. 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 The bow el gas pattern nonspecific. Degenerative change lower lumbar spine. Calcifications in pelvis are stab le from 2018. Could represent bladder calculi. IMPRESSION: 1. 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
== END | disposition home or self-care (01) ==
LOC: RADXRMAIN 09:33
PROVIDERS: ATTEND Family Medicine
DX: M16.0 Bilateral primary osteoarthritis of hip (principal)
CPT/HCPCS: 73521

== ENCOUNTER → 2019-01-15 | Outpatient (CLI) | payer MEDICARE, BC ==
--- NOTE | 2019-01-15 16:41 | MR ---
EXAMINATION TYPE: MR lumbar spine wo con DATE OF EXAM: 01/15/2019 COMPARISON: Prior MRI lumbar spine June 11, 2015. HISTORY: Low back pain for 2 months going into both lower extremities per patient. TECHNIQUE: Multiplanar, multisequence imaging of the lumbar spine is performed without IV contrast. FINDINGS: Sagittal images of the lumbar spine show a new mild to moderate height loss superior L2 end plate. There is grade 1 retrolisthesis L5 on S1 redemonstrated. Multilevel disc desiccation is redemo nstrated with multilevel fairly mild disc space narrowing but most prominent at L5-S1 level where it is moderate to advanced with vacuum disc phenomenon. The conus medullaris remains normal in position and signal ending inferior L1 level. The bone marrow signal intensity is overall heterogeneous. The re is mild multilevel anterior spurring. Axial images at the L1-L2 level show mild broad disc bulge with tiny central disc protrusion componen t facing anterior thecal sac new from prior study. Axial images at the L2-L3 levels [id number] broad disc bulge with central disc protrusion compo nent facing anterior thecal sac and mild facet degenerative changes bilaterally. Axial images at the L3-L4 levels moderate broad disc bulge effacing anterior thecal sac new or more p rominent from prior study causing mild bilateral anterior inferior neural foraminal narrowing. Mild f acet arthropathy bilaterally is present. Axial images at the L4-L5 levels and moderate to advanced broad disc bulge and moderate facet degener ative changes and ligamentum flavum hypertrophy. There is some effacement of the anterior thecal sac. There is mild to moderate right and mild left-sided anterior inferior neural foraminal narrowing. Axial images at the L5-S1 level to moderate broad-based posterior disc protrusion with mild facet deg enerative changes bilaterally. Spinal canal is preserved. There is mild to moderate left greater than right bilateral inferior neural foraminal narrowing. No suspicious incidental retroperitoneal findings. IMPRESSION: Multilevel degenerative changes lumbar spine with some progression from 2015 MRI. New sin ce 2015 but chronic mild to moderate compression fractures superior L2 endplate.
== END | disposition home or self-care (01) ==
LOC: RADMRIMAIN 07:13
PROVIDERS: ATTEND Orthopaedic Surgery
DX: M47.817 Spondylosis without myelopathy or radiculopathy, lumbosacral region (principal); S32.029A Unspecified fracture of second lumbar vertebra, initial encounter for closed fracture
CPT/HCPCS: 72148

== ENCOUNTER → 2019-02-07 | Outpatient (CLI) | payer MEDICARE, BC ==
[2019-02-07 11:55] VITALS: BP 168/75; PULSE 55; RESP 16
--- NOTE | 2019-02-07 15:17 | P.PAINCN ---
History of Present Illness - Reason for Consult Consult date: 02/07/19 - History of Present Illness Chief complaint: leg pain HPI: Patient is a 83-year-old female with CKD who presents with primarily leg pain and some back pain this pain has been ongoing for several years but is then worsening most recently and is affecting her activities of daily living. She has previously seen another pain clinic a few years ago, had some epidurals for this. She states that when she goes grocery store and walks for long periods of time she does have pain. When she uses a shopping cart her leg pain improves. The pain is located throughout her bilateral legs. This is a deep sensation. Activities make it worse and rest makes it better. She denies any changes in her bowel or bladder function since her MRI. She has seen a surgeon, who recommended that she not undergo surgery at this time. Thus she presents here for consultation. Review of Systems Musculoskeletal: Reports shooting leg pain Neurological: Reports as per HPI, Reports gait dysfunction Past Medical History Past Medical History: Atrial Fibrillation, Hypertension, Osteoarthritis (OA), Thyroid Disorder Additional Past Medical History / Comment(s): history of recurrent urine tract infections, history of E. coli septicemia back in February 2016, urinary incontinence, spinal stenosis, degenerative arthritis, chronic back pain, bilateral leg and feet pain with L side worse, varicose veins, diverticulitis History of Any Multi-Drug Resistant Organisms: ESBL Year Discovered:: ESBL 06/12/15 MDRO Source:: urine Past Surgical History: Breast Surgery, Cholecystectomy, Orthopedic Surgery Additional Past Surgical History / Comment(s): cystoscopy with coaptite injections x 2, lithotripsy, hemorroidectomy, bilateral cataract with lense implants , varicose vein surgery, D&C, L breast biopsy x 2, bilateral great toenails removed, carpal tunnel release R wrist, R knee arthroscopy, lipomas removed from L leg. Past Anesthesia/Blood Transfusion Reactions: No Reported Reaction Past Psychological History: No Psychological Hx Reported Additional Psychological History / Comment(s): History of prior tobacco use. No severe alcohol use. Stopped smoking in 1987. She has no pet exposures. No travel. [place] [facility] [place] . She last was on a cruise in May 2016. Relates that her mother had arthritis Smoking Status: Former smoker Past Alcohol Use History: Occasional Additional Past Alcohol Use History / Comment(s): Pt started smoking around 1967 was a on and off again smoker until 1987 when she quit. , SMOKED < PPD Past Drug Use History: None Reported - Past Family History Brother(s) History Unknown: Yes Family Medical History: Cancer Sister(s) Family Medical History: Deep Vein Thrombosis (DVT) Additional Family Medical History / Comment(s): DVT IN GROIN Mother Family Medical History: No Reported History Father History Unknown: Yes Family Medical History: Unable to Obtain Additional Family Medical History / Comment(s): Pt did not know her biological father. Medications and Allergies Home Medications Medication Instructions Recorded Confirmed Type Cyanocobalamin [Vitamin B-12] 1,000 mcg PO DAILY 03/10/16 02/07/19 History Apixaban [Eliquis] 2.5 mg PO BID #0 tablet 06/03/16 02/07/19 Rx Metoprolol Tartrate [Lopressor] 25 mg PO BID tab 06/03/16 02/07/19 Rx Cholecalciferol [Vitamin D3 (25 1,000 unit PO DAILY 04/08/17 02/07/19 History Mcg = 1000 Iu)] Levothyroxine Sodium [Synthroid] 88 mcg PO DAILY 04/08/17 02/07/19 History Magnesium Oxide [Mag-Ox] 500 mg PO DAILY 12/13/17 02/07/19 History ALPRAZolam [Xanax] 0.25 mg PO Q8H PRN 12/19/17 02/07/19 History HYDROcodone/APAP 5-325MG [Ogden 1 tab PO Q6HR PRN 02/05/19 02/07/19 History 5-325] Methenamine/Sodium Salicylate 1 each PO DAILY 02/05/19 02/07/19 History [Cystex Tablet] Allergies Allergy/AdvReac Type Severity Reaction Status Date / Time adhesive Allergy Severe Rash/Hives Verified 02/07/19 11:51 latex Allergy Severe Rash/Hives Verified 02/07/19 11:51 nitrofurantoin Allergy Unknown Nausea & Verified 02/07/19 11:51 [From Macrobid] Vomiting & Diarrhea ceftriaxone [From Rocephin] Allergy Rash/Hives Verified 02/07/19 11:51 levofloxacin [From Levaquin] AdvReac Severe Nausea & Verified 02/07/19 11:51 Vomiting & Diarrhea sulfamethoxazole AdvReac Mild Nausea & Verified 02/07/19 11:51 [From Bactrim] Vomiting trimethoprim [From Bactrim] AdvReac Mild Nausea & Verified 02/07/19 11:51 Vomiting Physical Exam Vitals: Vital Signs Pulse Resp BP 02/07/19 11:52 55 L 16 168/75 Gen: WDWN, AAOx3, NAD HEENT: NCAT, EOMI, hearing grossly normal Pulm: resp unlabored Abd: soft, NT, ND Neck: supple, trachea midline ROM in flexion lumbar spine: Limited ROM in extension lumbar spine: To be limited Lumbar paravertebral tenderness: Tenderness Neuro: Gait isn't antalgic. Focused strength exam is intact in the lower extremities Results Comments: Lumbar MRI from January 15, 2019 reviewed. This shows some effacement of the anterior thecal sac at L4-L5. Multilevel degenerative changes with some progression from 2015. Assessment and Plan Assessment: This is a 83-year-old female with chronic kidney disease on eliquis. She presents with primarily leg pain with activity. She does have a positive shopping cart sign. She has had questionable results with previous epidural injections at an outside pain clinic. Given her symptoms are throughout her bilateral lower extremities and that she has some effacement of the anterior thecal sac at L4-L5, pain may be coming from spinal stenosis. She does have some CKD which precludes the use of NSAIDs. Furthermore she is not that in terested in medication management Assessment: 1. Spinal stenosis 2. Degenerative disc disease 3. Chronic anticoagulation use Plan: 1. She will be scheduled for L4-L5 interlaminar epidural steroid injection, after clearance from cardiology. If this is not work would consider caudal epidural injection, she states previous epidural injections with questionable benefit. 2. Continue physical therapy home exercise program 3. Would consider gabapentin in the future she has tried Lyrica in the past but is not that interested in medications at this time PQRS Measure Charge Sheet PQRS Narrative: Smoking Status Former smoker Blood Pressure 168/75 Pain Intensity [Lower Back] 7 Scale Used Numeric (1 - 10) Hx Alcohol Use (MH) Yes Home Medications: Ambulatory Orders Cyanocobalamin [Vitamin B-12] 1,000 mcg PO DAILY 03/10/16 Apixaban [Eliquis] 2.5 mg PO BID #0 tablet 06/03/16 Metoprolol Tartrate [Lopressor] 25 mg PO BID tab 06/03/16 Cholecalciferol [Vitamin D3 (25 Mcg = 1000 Iu)] 1,000 unit PO DAILY 04/08/17 Levothyroxine Sodium [Synthroid] 88 mcg PO DAILY 04/08/17 Magnesium Oxide [Mag-Ox] 500 mg PO DAILY 12/13/17 ALPRAZolam [Xanax] 0.25 mg PO Q8H PRN 12/19/17 HYDROcodone/APAP 5-325MG [Ogden 5-325] 1 tab PO Q6HR PRN 02/05/19 Methenamine/Sodium Salicylate [Cystex Tablet] 1 each PO DAILY 02/05/19
== END | disposition home or self-care (01) ==
LOC: PNWHC3 11:33
PROVIDERS: ATTEND Student in an Organized Health Care Education/Training Program
DX: M48.061 Spinal stenosis, lumbar region without neurogenic claudication (principal); M51.36 Other intervertebral disc degeneration, lumbar region; I12.9 Hypertensive chronic kidney disease with stage 1 through stage 4 chronic kidney disease, or unspecified chronic kidney disease; N18.9 Chronic kidney disease, unspecified; M19.90 Unspecified osteoarthritis, unspecified site; I48.91 Unspecified atrial fibrillation; Z87.891 Personal history of nicotine dependence; Z79.01 Long term (current) use of anticoagulants; Z79.899 Other long term (current) drug therapy; Z88.1 Allergy status to other antibiotic agents; Z88.2 Allergy status to sulfonamides
CPT/HCPCS: 99211

== ENCOUNTER 2019-02-21 08:22 | Day surgery (SDC) | payer MEDICARE, BC ==
[2019-02-14 11:54] VITALS: BMI 29.8
[~2019-02-21 08:22] MED LIST changes: +LACTATED RINGERS 1,000 ML IV SCH; -Pre Op ABX Message 1 EACH MISC MISCELLANE ONE
[2019-02-21 09:04] VITALS: TEMP 97.9
--- NOTE | 2019-02-21 10:18 | P.PCN ---
Date of Procedure: 02/21/19 Procedure(s) Performed: PREOPERATIVE DIAGNOSIS: 1- Lumbar Degenerative Disc Diseases 2-Lumbar spinal stenosis POSTOPERATIVE DIAGNOSIS: 1-Lumber Degenerative Disc Diseases 2-Lumbar spinal stenosis PROCEDURE 1. Lumbar epidural steroid injection under fluoroscopic guidance at the L4-5 level. (Fluoroscopy imaging was available in radiology department) 2. Lumbar epidurogram. ANESTHESIA: Local with 1% lidocaine 3 ml and , moderate sedation with intravenous Versed 1 mg. EBL: Minimal PROCEDURE INDICATION: The patient with low back pain and radiculitis symptoms unresponsive to conservative treatment. Fluoroscopy was used to optimize visualization of the needle placement and to maximize safety. PROCEDURE DESCRIPTION / TECHNIQUE: The patient was seen and identified in the preoperative area. Risks, benefits, complications including but not limited to infections ,bleeding ,allergic reaction to the medications ,nerve damage and not complete pain releife , and alternatives were discussed with the patient. The patient agreed to proceed with the procedure and signed the consent. IV was started, and vital signs were stable. Patient was taken to the OR and time out was completed. The patient was placed in the prone position on procedure table and a pillow was placed under the abdomen to reduce lumbar lordosis. The lumbosacral area was prepped and draped in the usual sterile fashion.ere closely monitored during the procedure. Conscious sedation was used during the procedure to decrease patients anxiety. Vital signs was monitered during the entire procedure. Using anterior-posterior fluoroscopy, the L4-5 interlaminar space was identified and the skin over this site was marked and then infiltrated with 1% lidocaine subcutaneously. Subsequently, a 20-gauge Tuohy epidural needle was inserted and advanced toward the epidural space using the ``Loss of resistance technique and guided by AP and lateral fluoroscopy. The correct needle position in the epidural space was verified with the injection of 2 mL of the water soluble contrast dye Isovue 200 contrast and observing an excellent epidurogram with the epidural spread of the dye, after negative aspiration for blood and CSF and in the absence of paresthesias. Again after negative aspiration, a 6 ml mixture containing 40 mg of Depo-medrol , and 2 ml of preservative free Normal Saline, and 2 ml of preservative free lidocaine 1% solution was injected and a washout of epidurogram was seen. Needle was withdrawn intact, skin was cleansed, and bandages were applied. COMPLICATIONS: None DISPOSITION / PLANS: The patient was placed in a supine position and transferred to the recovery area in a stable condition for observation. There was no evidence of lower extremity motor or sensory deficit after the procedure. Patient was discharged from the recovery room after meeting discharge criteria. Home discharge instructions were given to the patient by the staff. The patient was reexamined prior to discharge. The patient will schedule a follow up in the clinic in 2-4 weeks. (Patient held ELIQUIS for 3 days before the procedure )
[2019-02-21] MEDS ORDERED: IV FLUID CONTINUATION 1,000 ML IV ONE ×2 (10:22)
--- NOTE | 2019-02-21 10:23 | FL ---
EXAMINATION TYPE: FL guided pain mgmt statistic DATE OF EXAM: 02/21/2019 HISTORY: Flouroscopy time 2 seconds of fluoroscopy provided. IMPRESSION: 1. Fluoroscopy time.
[2019-02-21 11:08] VITALS: BP 160/72; PULSE 58; RESP 18
== END 2019-02-21 11:04 | disposition home or self-care (01) ==
LOC: ORPAIN 08:22
PROVIDERS: ATTEND Specialist
DX: M51.36 Other intervertebral disc degeneration, lumbar region (principal); M48.061 Spinal stenosis, lumbar region without neurogenic claudication; I48.91 Unspecified atrial fibrillation; I10 Essential (primary) hypertension; Z88.2 Allergy status to sulfonamides; Z91.048 Other nonmedicinal substance allergy status; Z79.01 Long term (current) use of anticoagulants
CPT/HCPCS: 62323; J2250; J1030; Q9966

== ENCOUNTER → 2019-03-07 | Outpatient (CLI) | payer MEDICARE, BC ==
--- NOTE | 2019-03-08 13:45 | MM ---
Reason for exam: screening (asymptomatic). Last mammogram was performed 1 year ago. History: Patient is postmenopausal and has history of high-risk lesion on a previous biopsy at age 69. Excisional biopsy of the left breast, February 19, 2005. High risk left mammotome panel of the left breast, January 08, 2005. High risk left mammotome panel of the left breast, January 08, 2005. Cyst aspiration of the right breast. Physical Findings: A clinical breast exam by your physician is recommended on an annual basis and results should be correlated with mammographic findings. MG Screening Mammo w CAD Bilateral CC and MLO view(s) were taken. Prior study comparison: February 21, 2018, bilateral MG 3d screening mammo w/cad. January 06, 2017, bilateral MG 3d screening mammo w/cad. The breast tissue is heterogeneously dense. This may lower the sensitivity of mammography. There is no discrete abnormality. No significant changes when compared with prior studies. ASSESSMENT: Negative, BI-RAD 1 RECOMMENDATION: Routine screening mammogram of both breasts in 1 year.
== END | disposition home or self-care (01) ==
LOC: RADMAMWWP 10:47
PROVIDERS: ATTEND Obstetrics & Gynecology
DX: Z12.31 Encounter for screening mammogram for malignant neoplasm of breast (principal)
CPT/HCPCS: 77067

== ENCOUNTER 2019-03-08 08:24 | Day surgery (SDC) | payer MEDICARE, BC ==
[2019-03-05 15:14] VITALS: BMI 29.8
[2019-03-08] MEDS ORDERED: LACTATED RINGERS 1,000 ML IV ONE (09:09)
[2019-03-08] MEDS ORDERED: LIDOCAINE 1% 20 ML VIAL (10MG/ML) FOR IV START INTRADERMA ONE (09:09)
[2019-03-08] MEDS ORDERED: LACTATED RINGERS 1,000 ML IV SCH (09:30)
[2019-03-08 10:02] VITALS: TEMP 97.5
--- NOTE | 2019-03-08 10:15 | P.PCN ---
Date of Procedure: 03/08/19 Procedure(s) Performed: PREOPERATIVE DIAGNOSIS: 1- Lumbar Degenerative Disc Diseases 2-Lumbar spondylosis with Facet arthropathy without myelopathy POSTOPERATIVE DIAGNOSIS: 1-Lumber Degenerative Disc Diseases 2-Lumbar spondylosis with Facet arthropathy without myelopathy PROCEDURE 1. Lumbar epidural steroid injection under fluoroscopic guidance at the L5-S1 level. (Fluoroscopy imaging was available in radiology department) 2. Lumbar epidurogram. ANESTHESIA: Local with 1% lidocaine 3 ml and , moderate sedation with intravenous Versed 1 mg . EBL: Minimal PROCEDURE INDICATION: The patient with low back pain and radiculitis symptoms unresponsive to conservative treatment. Fluoroscopy was used to optimize visualization of the needle placement and to maximize safety. PROCEDURE DESCRIPTION / TECHNIQUE: The patient was seen and identified in the preoperative area. Risks, benefits, complications including but not limited to infections ,bleeding ,allergic reaction to the medications ,nerve damage and not complete pain releife , and alternatives were discussed with the patient. The patient agreed to proceed with the procedure and signed the consent. IV was started, and vital signs were stable. Patient was taken to the OR and time out was completed. The patient was placed in the prone position on procedure table and a pillow was placed under the abdomen to reduce lumbar lordosis. The lumbosacral area was prepped and draped in the usual sterile fashion.ere closely monitored during the procedure. Conscious sedation was used during the procedure to decrease patients anxiety. Vital signs was monitered during the entire procedure. Using anterior-posterior fluoroscopy, the L5-S1 interlaminar space was identified and the skin over this site was marked and then infiltrated with 1% lidocaine subcutaneously. Subsequently, a 20-gauge Tuohy epidural needle was inserted and advanced toward the epidural space using the ``Loss of resistance technique and guided by AP and lateral fluoroscopy. The correct needle position in the epidural space was verified with the injection of 2 mL of the water soluble contrast dye Isovue 200 contrast and observing an excellent epidurogram with the epidural spread of the dye, after negative aspiration for blood and CSF and in the absence of paresthesias. Again after negative aspiration, a 6 ml mixture containing 40 mg of Depo-medrol , and 2 ml of preservative free Normal Saline, and 2 ml of preservative free lidocaine 1% solution was injected and a washout of epidurogram was seen. Needle was withdrawn intact, skin was cleansed, and bandages were applied. COMPLICATIONS: None DISPOSITION / PLANS: The patient was placed in a supine position and transferred to the recovery area in a stable condition for observation. There was no evidence of lower extremity motor or sensory deficit after the procedure. Patient was discharged from the recovery room after meeting discharge criteria. Home discharge instructions were given to the patient by the staff. The patient was reexamined prior to discharge. The patient will schedule a follow up in the clinic in 2-4 weeks.
[2019-03-08] MEDS ORDERED: IV FLUID CONTINUATION 1,000 ML IV ONE (10:22)
[2019-03-08 10:30] VITALS: RESP 18
[2019-03-08 10:45] VITALS: BP 148/75; PULSE 56
--- NOTE | 2019-03-08 14:08 | FL ---
Fluoroscopy HISTORY: Pain 1 seconds fluoroscopy time supplied to the referring clinician. 1 intraoperative C-arm images docume nt the procedure. See dictated report from anesthesia.
== END 2019-03-08 10:54 | disposition home or self-care (01) ==
LOC: ORPAIN 08:24
PROVIDERS: ATTEND Specialist
DX: M51.16 Intervertebral disc disorders with radiculopathy, lumbar region (principal); M47.26 Other spondylosis with radiculopathy, lumbar region; I10 Essential (primary) hypertension; I48.91 Unspecified atrial fibrillation; Z88.2 Allergy status to sulfonamides; Z88.1 Allergy status to other antibiotic agents; Z91.040 Latex allergy status; Z79.01 Long term (current) use of anticoagulants; Z79.899 Other long term (current) drug therapy
CPT/HCPCS: 62323; J2250; J1030; Q9966

== ENCOUNTER → 2019-03-29 | Outpatient (CLI) | payer MEDICARE, BC ==
[2019-03-29 12:35] VITALS: BP 119/77; PULSE 51; RESP 16
--- NOTE | 2019-03-29 12:55 | P.PN ---
Subjective Progress Note Date: 03/29/19 This is an 83-year-old lady with history of lower back pain with radiation to the lower extremities bilaterally. Her pain lately has been worse in the right leg from the knee down. She also has foot pain and she is seeing a jewel supervisor for that. She had interlaminar epidural steroid injection with limited pain relief afterwards. The patient takes Eliquis for history of atrial fibrillation. Patient denies new-onset weakness, bowel/bladder incontinence, or any other signs or symptoms of cauda equina syndrome. There are no signs of acute intoxication, and no indications of medication diversion or overuse. In addition to above, 13-point review of systems is also negative for chest pain, shortness of breath, changes in vision, changes in hearing, new onset weakness, abdominal pain, diarrhea, extreme fatigue, malaise, fever, skin changes, homicidal or suicidal ideation, or bowel or bladder incontinence. Vital Signs: Reviewed in EMR Gen: AAOx3, NAD HEENT: PERRLA,hearing grossly normal Pulm: resp unlabored Neck: supple, trachea midline Neuro exam of the lower extremities: Decreased muscle strength to 4 out of 5 bilaterally and symmetrically. Decreased but symmetrical knee reflexes and absent ankle reflexes. Straight leg raising test: Negative bilaterally Emiliano's test: Range of motion of the lumbar spine: Facet loading test: Tenderness in the paravertebral musculature: Positive the lumbar area bilaterally Neuro: CN II-XII grossly intact, Imaging: Reviewed in EMR/chart Assessment: Lumbar radiculopathy Lumbar stenosis Lumbar spondylosis without adenopathy Plan: 1. Explanation: Opioid and psychological risk scores were reviewed. Diagnoses, prognoses, and multiple treatment options including but not limited to physical therapy, interventional therapies, adjuvant medical therapies, narcotic medication therapies, and surgery were discussed with the patient and all questions were answered to the patient's satisfaction. 2. Opioid agreement: No was prescribed today 3. Counseling: The patient was counseled extensively on SMOKING CESSATION, BODY MASS INDEX, EXERCISE. Specifically, the patient was instructed regarding the importance of smoking cessation, obesity, and exercise in the context of both chronic pain and overall health. 4. Procedures: Schedule for transforaminal epidural steroid injection on the right side at the L4 5 and L5-S1 levels. The patient would hold her pelvic was for 3 days before the procedure. She will check with her natural fabricator about the safety of doing that. 5. Consultations: None 6. Investigations: None 7. Medications: None at this point 8. Disposition: Return to the above-mentioned procedure as soon as possible 9. Maps were reviewed and were appropriate. PQRS measures: 1-Patient's medications are documented in the chart. 2-Tobacco use is negative, counseling given 3-Patient has had a pneumococcal vaccine. 4-Advanced care planning discussed, patient unable to give 5-Opioid contract signed with the patient. 6-Pain positive, follow-up visit or procedure scheduled 7-Patient's blood pressure measured and documented within normal limits. The patient will follow up with his primary care physician. 8-Patient's weight was measured, and body mass index ABOVE the normal limits, and counseling was done. Patient instructed to follow up with PCP. 9-Patient WAS NOT identified as an unhealthy alcohol user. Objective - Vital Signs Vital signs: Vital Signs Temp Pulse 51 L 03/29/19 12:23 Resp 16 03/29/19 12:23 BP 119/77 03/29/19 12:23 Pulse Ox
== END | disposition home or self-care (01) ==
LOC: PNWHC3 12:05
PROVIDERS: ATTEND Anesthesiology
DX: M48.061 Spinal stenosis, lumbar region without neurogenic claudication (principal); M47.26 Other spondylosis with radiculopathy, lumbar region
CPT/HCPCS: 99211

== ENCOUNTER → 2019-03-30 | Outpatient (CLI) | payer MEDICARE, BC ==
--- NOTE | 2019-03-30 11:19 | CT ---
EXAMINATION TYPE: CT abdomen pelvis wo con DATE OF EXAM: 03/30/2019 COMPARISON: 12/13/2017 INDICATION: LLQ pain DLP: 553.5 mGycm, Automated exposure control for dose reduction was used. CONTRAST: 0 mL of Isovue 300. Study performed without Oral Contrast TECHNIQUE: Axial images were obtained from above the diaphragm to the pubic rami in the axial plane a t 5 mm thick sections. Reconstructed images are reviewed on the computer in the coronal plane. FINDINGS: Limited CT sections are obtained the lung bases. The lung bases are clear. CT ABDOMEN: Liver: Normal Spleen: Normal Pancreas: Normal Adrenal glands: Right adrenal gland is thickened at 1.5 cm. Left adrenal gland appears within normal limits. Gallbladder: Likely absent Kidneys: No masses are evident. No hydronephrosis is present. No cysts are present. There is a 0.5 cm nonobstructing renal stone inferior pole right kidney. There is a nonobstructing 0.5 cm calcifica tion at the inferior pole left kidney. Multiple punctate calcifications measuring 0.2 cm are within t he mid right kidney without obstruction. There is a nonobstructing 0.2 cm calcification in the superi or pole left kidney. Aorta: Vascular calcification is within the aorta. Inferior vena cava: Normal. CT PELVIS: Loops of bowel within the abdomen and pelvis are normal. There are loops of bowel which are incom pletely distended or lack oral contrast limiting their evaluation. Appendix: Normal as visualized. Urinary bladder: There may be some large dense calcifications at the inferior aspect of the urinary b ladder. This could be just inferior to the urinary bladder is well. These are not in the posterior de pendent portions of the urinary bladder. Urinary bladder is otherwise unremarkable. Genitourinary structures: Uterus and ovaries appear within normal limits. Osseous structures: No suspicious lytic or sclerotic lesions. IMPRESSIONS: 1. Multiple bilateral nonobstructing renal stones. 2. There are large calcifications which appear to lie at or just inferior to the urinary bladder.
== END ==
LOC: RADCTMAIN 10:21
PROVIDERS: ATTEND Family Medicine
DX: N20.0 Calculus of kidney (principal); R93.5 Abnormal findings on diagnostic imaging of other abdominal regions, including retroperitoneum
CPT/HCPCS: 74176

== ENCOUNTER 2019-04-10 06:56 | Day surgery (SDC) | payer MEDICARE, BC ==
[2019-04-06 14:03] VITALS: BMI 29.7
[2019-04-10] MEDS ORDERED: LACTATED RINGERS 1,000 ML IV SCH (07:24)
[2019-04-10 07:38] VITALS: RESP 16; TEMP 97.1
[2019-04-10] MEDS ORDERED: LIDOCAINE 1% 20 ML VIAL (10MG/ML) FOR IV START INTRADERMA ONE (07:43)
--- NOTE | 2019-04-10 08:25 | P.PCN ---
Date of Procedure: 04/10/19 Procedure(s) Performed: PREOPERATIVE DIAGNOSIS: Lumbar radiculopathy POSTOPERATIVE DIAGNOSIS: Lumbar radiculopathy Attending physician: Jac Parker M.D. PROCEDURE 1. Transforaminal epidural steroid injection under fluoroscopic guidance L4-5, L5-S1 level, right side 2. Lumbar epidurogram ANESTHESIA: Local with 1% lidocaine 3 ml ; IV sedation with Versed and fentanyl , sedation time 21 minutes PROCEDURE INDICATION: The patient with low back pain and radiculopathy symptoms unresponsive to conservative treatment. Fluoroscopy was used for the procedure and fluoroscopic images were saved to the radiology portion of patient's chart. PROCEDURE DESCRIPTION / TECHNIQUE: The patient was seen and identified in the preoperative area. Risks, benefits, complications, and alternatives were discussed with the patient. The patient agreed to proceed with the procedure and signed the consent. IV was started, and vital signs were stable. Patient was taken to the OR and time out was completed. The patient was placed in the prone position on procedure table and a pillow was placed under the abdomen to reduce lumbar lordosis. The lumbosacral area was prepped and draped in the usual sterile fashion. Vital signs were closely monitored during the procedure. Conscious sedation was used. Using oblique fluoroscopy, the chin of the ``Jim dog and the skin and deeper tissues just below was localized with 1% lidocaine. Subsequently, a 22- gauge 3.5-inch spinal needle was advanced under a tunneled view fluoroscopic guidance just underneath the chin of the ``Jim dog at L4-5 level. At L5-S1 level, a 22-gauge 5 inch spinal needle was used. . Under lateral fluoroscopy, the needle was then advanced to the posterior border of the foramen. After negative aspiration of CSF and blood and with no paresthesias, 1 mL of Isovue- 200 contrast dye was injected under live fluoroscopy and there was no evidence of intravascular injection. The injectate solution consisting of 7.5 mg of dexamethasone with 0.5 mL of 1% lidocaine and 0.5 ML of preservative-free normal saline was then delivered at each site. A total of 15 mg of dexamethasone was used. The needle was withdrawn intact. At the end of the procedure, skin was cleansed, and bandages were applied. COMPLICATIONS: None COMMENTS: for the L4-5 level, 15 of ipsilateral oblique view with 10 of cephalad tilt was used. For the L5-S1 level 15 of ipsilateral oblique with 30 of cephalad tilt was used DISPOSITION / PLANS: The patient was placed in a supine position and transferred to the recovery area in a stable condition for observation. There was no evidence of lower extremity motor or sensory deficit after the procedure. Patient was discharged from the recovery room after meeting discharge criteria. Home discharge instructions were given to the patient by the staff. The patient will follow up in clinic in 2-4 weeks.
--- NOTE | 2019-04-10 08:42 | FL ---
EXAMINATION TYPE: FL guided pain mgmt statistic DATE OF EXAM: 04/10/2019 HISTORY: Flouroscopy time 21 seconds of fluoroscopy provided. IMPRESSION: 1. Fluoroscopy time.
[2019-04-10 09:08] VITALS: BP 146/93; PULSE 57
[2019-04-10] MEDS ORDERED: IV FLUID CONTINUATION 350 ML IV ONE (09:08)
== END 2019-04-10 09:31 | disposition home or self-care (01) ==
LOC: ORPAIN 06:56
PROVIDERS: ATTEND Anesthesiology
DX: M47.26 Other spondylosis with radiculopathy, lumbar region (principal); M48.061 Spinal stenosis, lumbar region without neurogenic claudication; I48.91 Unspecified atrial fibrillation; Z79.01 Long term (current) use of anticoagulants
CPT/HCPCS: 64483; 64484; J2250; J1100; J3010; Q9966; 99152

== ENCOUNTER → 2019-05-09 | Outpatient (CLI) | payer MEDICARE, BC ==
[2019-05-09 12:44] VITALS: BP 151/65; PULSE 59; RESP 16
--- NOTE | 2019-05-09 13:19 | P.PAINPG ---
Subjective Progress Note Date: 05/09/19 This is a follow-up visit for 83 years old female, with a chronic history of severe low back pain with radiation to the lower extremity mainly to the right side, she is diagnosed with lumbar radiculopathy and lumbar spinal stenosis, previously we have done lumbar epidural steroid injections 2 she had partial benefit from it, and recently we did right-sided transforaminal epidural steroid injection at L4-L5/L5-S1, and she reported that she had significant improvement of her pain, currently she has minimal pain, she had no motor or sensory deficit she is able to ambulate without difficulty Objective - Vital Signs Vital signs: Vital Signs Temp Pulse 59 L 05/09/19 12:34 Resp 16 05/09/19 12:34 BP 151/65 05/09/19 12:34 Pulse Ox 97 05/09/19 12:34 Intake & Output 05/08/19 05/09/19 05/09/19 18:59 06:59 18:59 Weight 79.379 kg - Exam Physical Examinations : -Constitutiona : Cooperative , not in acute distress . -HEENT : nech : supple , no Lymphadenopathy , normal thyroid size . : eyes : no ptosis , no icterus, no photophobia . - neurologic : Cranial nerve II to XII intact , no focal neurological deffecit . -psychatric : alert , oriented X 3 , appropriate affect , intact judgment and insight . -Lymphatic : no Lymphadenopathy . - musculoskeltal : Lumber spine moter stegnth lower extremities ,thigh and legs 5/5 Right side , 5/5 Left side Assessment and Plan Assessment: Assessment and plan= lumbar radiculopathy, lumbar degenerative disc disease Pain improved after transforaminal epidural steroid injection at L4 5/L5-S1 He will follow up with the pain clinic when necessary PQRS Measure Charge Sheet Measure #130: Documentation of Current Meds in Medical Chart: Patient's medications documented in chart Measure #226: Tobacco Use: Screen & Cessation Intervention: Pt not a tobacco user Measure #111: Pneumonia Vaccination: Pneumococcal vaccine administered or previously received Measure #47: Advance Care Plan: Advance care planning discussed & documented, pt chose/unable to give Measure #412: Opioid Treatment Agreement: No documentation of signed opioid treatment agreement Measure #408: Opioid Therapy Follow-up Evaluation: Patient had NO f/u eval minimum every 3 months during opioid therapy Measure #317: Preventitive Care & Scrn High Bld Press & F/U: Pre-hypertensive or hypertensive BP documented, pt will f/u with PCP Measure #128: Body Mass Index (BMI) Screening & Follow-up: BMI documented ABOVE normal parameters - f/u documented Measure #131: Pain Assessment & Follow-up: Pain positive & plan documented, Follow-up scheduled, Follow-up PRN Measure #431: Unhealthy Alcohol Use Preventative Care & Scrn: Patient not identified as an unhealthy alcohol user PQRS Narrative: Smoking Status Former smoker Blood Pressure 151/65 Pain Intensity [Lower Back] 2 Scale Used Numeric (1 - 10) Hx Alcohol Use (MH) Yes Home Medications: Ambulatory Orders Cyanocobalamin [Vitamin B-12] 1,000 mcg PO DAILY 03/10/16 Apixaban [Eliquis] 2.5 mg PO BID #0 tablet 06/03/16 Metoprolol Tartrate [Lopressor] 25 mg PO BID tab 06/03/16 Cholecalciferol [Vitamin D3 (25 Mcg = 1000 Iu)] 5,000 unit PO DAILY 04/08/17 Magnesium Oxide [Mag-Ox] 500 mg PO DAILY 12/13/17 ALPRAZolam [Xanax] 0.25 mg PO Q8H PRN 12/19/17 Methenamine/Sodium Salicylate [Cystex Tablet] 1 each PO DAILY 02/05/19 Levothyroxine Sodium [Synthroid] 100 mcg PO DAILY 04/06/19 Controlled Substance Measures - Controlled Substance Measures Is patient prescribed a controlled substance at discharge?: No
== END | disposition home or self-care (01) ==
LOC: PNWHC3 12:26
PROVIDERS: ATTEND Specialist
DX: M51.16 Intervertebral disc disorders with radiculopathy, lumbar region (principal); Z87.891 Personal history of nicotine dependence; Z79.891 Long term (current) use of opiate analgesic; Z79.899 Other long term (current) drug therapy; Z79.01 Long term (current) use of anticoagulants; Z79.890 Hormone replacement therapy
CPT/HCPCS: 99211

== ENCOUNTER → 2020-03-10 | Outpatient (CLI) | payer MEDICARE, BC ==
--- NOTE | 2020-03-10 15:11 | BD ---
EXAMINATION TYPE: Axial Bone Density DATE OF EXAM: 03/10/2020 COMPARISON: DEXA bone scan February 21, 2018 CLINICAL HISTORY: Disorder of bone per order. Height: 5 FT 2 IN Weight: 174 FRAX RISK QUESTIONS: Alcohol (3 or more units per day): NO Family History (Parent hip fracture): NO Glucocorticoids (More than 3mos): UNSURE (Ex: prednisone, prednisolone, methylprednisolone, dexamethasone, and hydrocortisone). History of Fracture in Adulthood: NO Secondary Osteoporosis: 1. Type 1 Diabetes: NO 2. Hyperthyroidism: NO 3. Menopause before 45: NO 4. Malnutrition: NO 5. Chronic liver disease: NO Rheumatoid Arthritis: NO Current Tobacco Use: NO RISK FACTORS HISTORY OF: Active: YES Postmenopausal woman: AGE 54 Lost more than 2 inches in height since high school: YES Poor Health: FAIR MEDICATIONS: Thyroid Medications: YES Which medication: SYNTHROID How Lon YEARS Additional Medications: SYNTHROID, METOPROLOL, ELEQUIS, Additional History: CARPAL TUNNEL SURG EXAM MEASUREMENTS: Bone mineral densitometry was performed using the [email or web address] System. Bone mineral density as measured about the Lumbar spine is: ----- L1-L4(G/cm2): 1.129 T Score Values are as follows: ----- L2: -1.2 ----- L3: 0.4 ----- L4: -0.3 ----- L1-L4: -0.4 Bone mineral density has: INCREASED 4.5 % since study of: 2017 Bone mineral density about the R hip (g/cm2): 0.781 Bone mineral density about the L hip (g/cm2): 0.816 T Score values are as follows: -----R Neck: -1.8 -----L Neck: -1.6 -----R Total: -1.0 -----L Total: -1.0 Bone mineral density has: DECREASED -0.3 % since study of: 2017 IMPRESSION: Osteopenia (T Score between -2.5 and -1) remains present. There remains slightly increased risk of fracture and the patient may be considered for treatment. Re-Screen 2-5 years. NOTE: T-SCORE=SD OF THE YOUNG ADULT MEAN.
--- NOTE | 2020-03-12 11:04 | MM ---
Reason for exam: screening (asymptomatic). Last mammogram was performed 1 year ago. History: Patient is postmenopausal and has history of high-risk lesion on a previous biopsy at age 69. Excisional biopsy of the left breast, February 19, 2005. High risk left mammotome panel of the left breast, January 08, 2005. High risk left mammotome panel of the left breast, January 08, 2005. Cyst aspiration of the right breast. Physical Findings: A clinical breast exam by your physician is recommended on an annual basis and results should be correlated with mammographic findings. MG 3D Screening Mammo W/Cad Bilateral CC and MLO view(s) were taken. Prior study comparison: March 07, 2019, bilateral MG screening mammo w CAD. February 21, 2018, bilateral MG 3d screening mammo w/cad. The breast tissue is heterogeneously dense. This may lower the sensitivity of mammography. There is chronic nodularity bilaterally. No significant changes when compared with prior studies. ASSESSMENT: Benign, BI-RAD 2 RECOMMENDATION: Routine screening mammogram of both breasts in 1 year.
== END | disposition home or self-care (01) ==
LOC: RADMAMWWP 13:39
PROVIDERS: ATTEND Obstetrics & Gynecology
DX: Z12.31 Encounter for screening mammogram for malignant neoplasm of breast (principal); M85.80 Other specified disorders of bone density and structure, unspecified site
CPT/HCPCS: 77063; 77067; 77080

== ENCOUNTER → 2020-03-17 | Outpatient (CLI) | payer MEDICARE, BC ==
--- NOTE | 2020-03-17 16:56 | US ---
EXAMINATION TYPE: US venous doppler duplex LE DATE OF EXAM: 03/17/2020 4:32 PM COMPARISON: NONE CLINICAL HISTORY: R60.0 LOCALIZED EDEMA. edema bilateral lower legs SIDE PERFORMED: Bilateral TECHNIQUE: The lower extremity deep venous system is examined utilizing real time linear array sonog joi with graded compression, doppler sonography and color-flow sonography. VESSELS IMAGED: External Iliac Vein (EIV) Common Femoral Vein Deep Femoral Vein Greater Saphenous Vein * Femoral Vein Popliteal Vein Small Saphenous Vein * Proximal Calf Veins (* superficial vessels) Right Leg: no evidence of DVT Left Leg: no evidence of DVT IMPRESSION: No sign of deep vein thrombosis in both legs.
== END | disposition home or self-care (01) ==
LOC: RADUSWWP 16:06
PROVIDERS: ATTEND Family Medicine
DX: R60.0 Localized edema (principal)
CPT/HCPCS: 93970

== ENCOUNTER → 2020-09-09 | Outpatient (CLI) | payer MEDICARE, BC ==
--- NOTE | 2020-09-09 16:01 | US ---
EXAMINATION TYPE: US pelvic complete DATE OF EXAM: 09/09/2020 COMPARISON: NONE CLINICAL HISTORY: R10.2 pelvic and perineal pain. TECHNIQUE: Transabdominal (TA). EXAM MEASUREMENTS: Uterus: 5.7 x 1.9 x 3.2 cm Endometrial Stripe: Not well visualized 1. Uterus: Anteverted Heterogenous echogenic area seen measuring 1.2 x .7 x 1.0 cm 2. Endometrium: Not well visualized due to uterine heterogenous. 3. Right Ovary: Obscured by overlying bowel gas 4. Left Ovary: Obscured by overlying bowel gas 5. Bilateral Adnexa: wnl 6. Posterior cul-de-sac: wnl IMPRESSION: 1. Hyperechoic area within the anterior body of the uterus. This is nonspecific. Uterine fibroid coul d be considered although these are typically more hypoechoic. Consider additional workup.
== END ==
LOC: RADUSWWP 15:26
PROVIDERS: ATTEND Family Medicine
DX: R93.5 Abnormal findings on diagnostic imaging of other abdominal regions, including retroperitoneum (principal)
CPT/HCPCS: 76856

== ENCOUNTER → 2021-02-24 | Outpatient (CLI) | payer MEDICARE, BC ==
--- NOTE | 2021-02-24 11:48 | CT ---
EXAMINATION TYPE: CT abdomen pelvis wo con DATE OF EXAM: 02/24/2021 COMPARISON: 03/30/2019 HISTORY: Left lower quadrant pain CT DLP: 566.2 mGycm Examination of the solid and hollow viscera is limited given the lack of contrast. FINDINGS: LUNG BASES: No evidence for nodule. No evidence for infiltrate. LIVER/GB: Gallbladder surgically absent. No space-occupying hepatic lesion. PANCREAS: No pancreatic mass identified. No inflammatory process seen. SPLEEN: No evidence for splenomegaly. No intrasplenic lesions seen. ADRENALS: No adrenal nodules identified. No evidence for thickening. KIDNEYS: No evidence for renal mass. Nonobstructing nephrolithiasis seen bilaterally measuring up to 3 mm. No hydronephrosis. BOWEL: Appendix has a normal appearance. No evidence of bowel obstruction. No inflammatory process. Lymph nodes: No evidence for adenopathy greater than 1 cm. Abdominal aorta: Atheromatous changes seen. No evidence for aneurysm. Genital organs: Focal calcifications uterine myometrium may reflect underlying calcified leiomyomas. No uterine masses are detected. Other: No significant abnormality. IMPRESSION: 1. No acute process seen to account for the patient's symptoms.
== END | disposition home or self-care (01) ==
LOC: RADCTMAIN 11:08
PROVIDERS: ATTEND Family Medicine
DX: R10.9 Unspecified abdominal pain (principal)
CPT/HCPCS: 74176

== ENCOUNTER → 2021-03-06 | Outpatient (CLI) | payer MEDICARE, BC ==
[2021-03-06 15:13] LABS: Appearance,Urine Clear (Clear); Bilirubin,Urine Negative (Negative); Blood,Urine Negative (Negative); Color,Urine Yellow; Glucose,Urine (UA) Negative (Negative); Ketones,Urine Negative (Negative); Leukocyte Esterase,Urine Small (Negative); Mucus,Urine Rare /hpf; Nitrite,Urine Negative (Negative); PH, Urine 5.5 (5.0-8.0); Protein,Urine Negative (Negative); RBC,Urine 7 /hpf (0-5); Squamous Epithelial Cell,Urine 1 /hpf (0-4); Urobilinogen,Urine <2.0 mg/dL (<2.0); WBC,Urine 8 /hpf (0-5)
--- NOTE | 2021-03-06 15:24 | XR ---
EXAMINATION TYPE: XR chest 2V DATE OF EXAM: 03/06/2021 COMPARISON: 06/02/16 HISTORY: Shortness of breath TECHNIQUE: Frontal and lateral views of the chest are obtained. FINDINGS: Scattered senescent parenchymal changes noted. Hyperinflation compatible with COPD. No evidence for infiltrate. No evidence for atelectasis. Heart size is stable. Mediastinal structures are stable and grossly unremarkable. No evidence for hilar prominence. Degenerative changes dorsal spine. IMPRESSION: 1. No evidence for acute pulmonary disease.
[2021-03-06 23:20] LABS: Basophils # (A) 0.05 X 10*3/uL (0.00-0.10); Basophils % (A) 0.7 %; Eosinophils # (A) 0.17 X 10*3/uL (0.04-0.35); Eosinophils % (A) 2.5 %; HCT 39.7 % (37.2-46.3); HGB 12.2 g/dL (12.0-15.0); Lymphocytes # (A) 1.28 X 10*3/uL (0.90-5.00); Lymphocytes % (A) 18.6 %; MCHC 30.7 g/dL (32.0-37.0); MCV 91.1 fL (80.0-97.0); Mean Platelet Volume 10.4 fL (9.5-12.2); Monocytes # (A) 0.69 X 10*3/uL (0.20-1.00); Neutrophils # (A) 4.68 X 10*3/uL (1.80-7.70); Neutrophils % (A) 67.9 %; Platelet Count 287 X 10*3/uL (140-440); RBC 4.36 X 10*6/uL (4.10-5.20); RDW 13.5 % (11.5-14.5); WBC 6.89 X 10*3/uL (4.50-10.00)
[2021-03-07 00:11] LABS: Erythrocyte Sedimentation Rate 46 mm/Hr (0-30)
[2021-03-07 00:26] LABS: Procalcitonin 0.06 ng/mL (0.02-0.09)
[2021-03-07 05:55] LABS: African American GFR (CKD) 67.1 (60.0-200.0); Albumin 4.5 g/dL (3.80-4.90); Albumin/Globulin Ratio 2.14 (1.60-3.17); Anion Gap 13.1 mmol/L (4.00-12.00); BUN/Creat Ratio 31.11 Ratio (12.00-20.00); C Reactive Protein 1.2 mg/dL (0.0-0.8); Calcium 9.6 mg/dL (8.7-10.3); Carbon Dioxide 24.9 mmol/L (21.6-31.8); Globulin 2.1 g/dL (1.6-3.3); Magnesium 2.2 mg/dL (1.5-2.4); Non-African American GFR(CKD) 57.9 (60.0-200.0); Potassium 4.6 mmol/L (3.5-5.5); Total Bilirubin 0.8 mg/dL (0.3-1.2); Total Protein 6.6 g/dL (6.2-8.2)
== END | disposition home or self-care (01) ==
LOC: LABWHC1 14:26
PROVIDERS: ATTEND Nurse Practitioner
DX: D72.829 Elevated white blood cell count, unspecified (principal); Z86.19 Personal history of other infectious and parasitic diseases; N39.0 Urinary tract infection, site not specified
CPT/HCPCS: 36415; 71046; 80053; 81001; 82550; 83735; 84145; 85025; 85652; 86038; 86140; 86431; 87040; 87086

== ENCOUNTER → 2021-03-13 | Outpatient (CLI) | payer MEDICARE, BC ==
--- NOTE | 2021-03-13 13:51 | XR ---
Cervical spine HISTORY: Neck pain 3 Views of the cervical spine, comparison to prior exam 04/08/2017 There is multilevel facet arthropathy. There is a scoliosis of the thoracic spine. Multilevel spondyl osis is again noted, loss of disc height greatest at C3-4, C4-5 and C5-6, C6-7. Interval retrolisthes is grade 1 C3-4 as on prior exam, anterolisthesis grade 1 C4-5 is likely degenerative. Prevertebral s oft tissues are normal. Cervical vertebral bodies show preserved height. Bone mineralization is reduc ed. Odontoid view is limited. IMPRESSION: Degenerative disc disease, facet arthropathy, osteopenia, thoracic scoliosis
== END | disposition home or self-care (01) ==
LOC: RADXRMAIN 11:10
PROVIDERS: ATTEND Nurse Practitioner
DX: M50.30 Other cervical disc degeneration, unspecified cervical region (principal); M47.892 Other spondylosis, cervical region; M85.88 Other specified disorders of bone density and structure, other site; M41.84 Other forms of scoliosis, thoracic region
CPT/HCPCS: 72040

== ENCOUNTER → 2021-04-22 | Outpatient (CLI) | payer MEDICARE, BC ==
--- NOTE | 2021-04-23 13:46 | MM ---
Reason for exam: screening (asymptomatic). Last mammogram was performed 1 year and 1 month ago. History: Patient is postmenopausal and has history of high-risk lesion on a previous biopsy at age 69. Excisional biopsy of the left breast, February 19, 2005. High risk left mammotome panel of the left breast, January 08, 2005. High risk left mammotome panel of the left breast, January 08, 2005. Cyst aspiration of the right breast. Physical Findings: A clinical breast exam by your physician is recommended on an annual basis and results should be correlated with mammographic findings. MG 3D Screening Mammo W/Cad Bilateral CC and MLO view(s) were taken. Prior study comparison: March 10, 2020, bilateral MG 3d screening mammo w/cad. March 07, 2019, bilateral MG screening mammo w CAD. The breast tissue is heterogeneously dense. This may lower the sensitivity of mammography. There are benign appearing round, linear, vascular calcifications bilaterally. There is no discrete abnormality. ASSESSMENT: Benign, BI-RAD 2 RECOMMENDATION: Routine screening mammogram of both breasts in 1 year.
== END | disposition home or self-care (01) ==
LOC: RADMAMWWP 13:16
PROVIDERS: ATTEND Obstetrics & Gynecology
DX: Z12.31 Encounter for screening mammogram for malignant neoplasm of breast (principal)
CPT/HCPCS: 77063; 77067

== ENCOUNTER 2021-08-03 14:24 | Emergency (ER) | payer MEDICARE, BC ==
[2021-08-03 14:32] VITALS: BP 186/82; PULSE 62; RESP 18; TEMP 98.2
[2021-08-03] MEDS ORDERED: SODIUM CHLORIDE 0.9% 500 ML 500 ML IV STA (14:46)
--- NOTE | 2021-08-03 14:53 | ED ---
General Adult HPI - General Chief complaint: Fall Stated complaint: fall Time Seen by Provider: 08/03/21 14:25 Source: patient, RN notes reviewed, old records reviewed Mode of arrival: wheelchair - History of Present Illness Initial comments: This is a 85-year-old female presents emergency Department on . Patient was stepping off a curb and fell and landed on her left side. Patient states she hit her head the ground she did not lose consciousness. Patient complains of facial pain but denies a headache. Patient denies any neck pain. Patient denies chest or back pain. Patient complains of bleeding to her right middle or right and right fourth finger at the PIP joints. Patient has complaints of pain to the anterior aspect of her left knee. Patient denies any hip pain. Patient denies any other complaints at this time. - Related Data Home Medications Medication Instructions Recorded Confirmed Cyanocobalamin [Vitamin B-12] 1,000 mcg PO W/LUNCH 03/10/16 08/03/21 Magnesium Oxide [Mag-Ox] 500 mg PO W/LUNCH 12/13/17 08/03/21 Methenamine/Sodium Salicylate 1 tab PO W/LUNCH 02/05/19 08/03/21 [Cystex Tablet] Cholecalciferol (Vitamin D3) 125 mcg PO W/LUNCH 08/03/21 08/03/21 [Vitamin D3 (125 MCG = 5,000 IU)] Levothyroxine Sodium [Synthroid] 88 mcg PO DAILY 08/03/21 08/03/21 Rosuvastatin Calcium [Crestor] 10 mg PO HS 08/03/21 08/03/21 Zinc 50 mg PO W/LUNCH 08/03/21 08/03/21 Previous Rx's Medication Instructions Recorded Apixaban [Eliquis] 2.5 mg PO BID #0 tablet 06/03/16 Metoprolol Tartrate [Lopressor] 25 mg PO BID tab 06/03/16 Acetaminophen-Codeine 300-30mg 1 tab PO Q6H PRN 3 Days #12 tablet 08/03/21 [Tylenol w/codeine #3] Amoxicillin/Potassium Clav 1 each PO Q12HR #14 tab 08/03/21 [Augmentin 875-125 Tablet] Allergies Allergy/AdvReac Type Severity Reaction Status Date / Time adhesive Allergy Severe states Verified 08/03/21 16:38 "latex tape peels skin off" latex Allergy Severe "peels Verified 08/03/21 16:38 skin off" nitrofurantoin Allergy Unknown Nausea & Verified 08/03/21 16:38 [From Macrobid] Vomiting & Diarrhea ceftriaxone [From Rocephin] Allergy Rash/Hives Verified 08/03/21 16:38 levofloxacin [From Levaquin] AdvReac Severe Nausea & Verified 08/03/21 16:38 Vomiting & Diarrhea sulfamethoxazole AdvReac Mild Nausea & Verified 08/03/21 16:38 [From Bactrim] Vomiting trimethoprim [From Bactrim] AdvReac Mild Nausea & Verified 08/03/21 16:38 Vomiting Review of Systems ROS Statement: Those systems with pertinent positive or pertinent negative responses have been documented in the HPI. ROS Other: All systems not noted in ROS Statement are negative. Past Medical History Past Medical History: Atrial Fibrillation, Hypertension, Osteoarthritis (OA), Thyroid Disorder Additional Past Medical History / Comment(s): hx of recurrent urine tract infections, hx of E. coli septicemia February 2016, urinary incontinence, spinal stenosis, degenerative arthritis, chronic back pain, bilateral leg and fe et pain, diverticulitis , varicose veins, states hammer toes left foot -wears a brace ., uses walker prn., kidney stones., sinus problems. History of Any Multi-Drug Resistant Organisms: ESBL Date of last positivie culture/infection: ESBL 06/12/15 MDRO Source:: urine Past Surgical History: Breast Surgery, Cholecystectomy, Orthopedic Surgery Additional Past Surgical History / Comment(s): pain clinic procedures, cystoscopy with coaptite injections x 2, lithotripsy, hemorroidectomy, ivonne cataract with lens implants, varicose vein surgery, D&C, L breast biopsy x 2, ivonne great toenails removed, carpal tunnel release R wrist, R knee arthroscopy, lipomas removed from L leg. Past Anesthesia/Blood Transfusion Reactions: No Reported Reaction Past Psychological History: No Psychological Hx Reported Past Alcohol Use History: Rare Past Drug Use History: None Reported - Past Family History Brother(s) History Unknown: Yes Family Medical History: Cancer Sister(s) Family Medical History: Deep Vein Thrombosis (DVT) Additional Family Medical History / Comment(s): DVT IN GROIN Father History Unknown: Yes General Exam - General Exam Comments Initial Comments: GENERAL: Patient is well-developed and well-nourished. Patient is nontoxic and well- hydrated and is in mild distress. Patient has facial abrasions on the left side of her face ENT: Neck is soft and supple. No significant lymphadenopathy is noted. Oropharynx is clear. Moist mucous membranes. Neck has full range of motion without eliciting any pain. EYES: The sclera were anicteric and conjunctiva were pink and moist. Extraocular movements were intact and pupils were equal round and reactive to light. Eyelids were unremarkable. Inferior left orbit is tender as well. PULMONARY: Unlabored respirations. Good breath sounds bilaterally. No audible rales rhonchi or wheezing was noted. CARDIOVASCULAR: There is a regular rate and rhythm without any murmurs gallops or rubs. ABDOMEN: Soft and nontender with normal bowel sounds. SKIN: Patient has superficial abrasions to the third and fourth PIP joint on the right hand. Patient has abrasion to the area below the left lateral aspect of the inferior orbit. Patient also has a puncture wound to the left knee anteriorly. NEUROLOGIC: Patient is alert and oriented x3. Cranial nerves II through XII are grossly i ntact. Motor and sensory are also intact. Normal speech, volume and content. Symmetrical smile. MUSCULOSKELETAL: Normal extremities with adequate strength and full range of motion. Patient has full range of motion of the left knee there is no effusion. LYMPHATICS: No significant lymphadenopathy is noted PSYCHIATRIC: Normal psychiatric evaluation. Course Vital Signs 08/03/21 14:26 Temperature 98.2 F Pulse Rate 62 Respiratory 18 Rate Blood Pressure 186/82 O2 Sat by Pulse 98 Oximetry Medical Decision Making - Medical Decision Making EKG shows sinus bradycardia 55 bpm IA interval 281 QRS is 94 Q-T intervals 44 QTC is 394. Patient's EKG shows no ST segment elevation or depression. CT of the brain and C-spine showed no acute normalities. CT of the safe bones showed no acute normalities. Chest x-ray and pelvis x-ray showed no acute abnormality. X-ray of the hand and knee showed no acute abnormality. Patient had a urinary tract infectious I gave the patient Augmentin because of her other ALLERGIES. - Lab Data Result diagrams: 08/03/21 14:50 08/03/21 14:50 Lab Results 08/03/21 08/03/21 08/03/21 Range/Units 14:50 14:50 14:50 WBC 6.4 (3.8-10.6) k/uL RBC 4.29 (3.80-5.40) m/uL Hgb 12.6 (11.4-16.0) gm/dL Hct 38.6 (34.0-46.0) % MCV 89.9 (80.0-100.0) fL MCH 29.3 (25.0-35.0) pg MCHC 32.5 (31.0-37.0) g/dL RDW 14.0 (11.5-15.5) % Plt Count 219 (150-450) k/uL MPV 8.3 Neutrophils % 63 % Lymphocytes % 26 % Monocytes % 6 % Eosinophils % 4 % Basophils % 1 % Neutrophils # 4.0 (1.3-7.7) k/uL Lymphocytes # 1.7 (1.0-4.8) k/uL Monocytes # 0.4 (0-1.0) k/uL Eosinophils # 0.2 (0-0.7) k/uL Basophils # 0.0 (0-0.2) k/uL PT 11.2 (9.0-12.0) sec INR 1.0 (<1.2) APTT 25.6 (22.0-30.0) sec Sodium 140 (137-145) mmol/L Potassium 4.2 (3.5-5.1) mmol/L Chloride 104 (98-107) mmol/L Carbon Dioxide 28 (22-30) mmol/L Anion Gap 8 mmol/L BUN 28 H (7-17) mg/dL Creatinine 0.75 (0.52-1.04) mg/dL Est GFR (CKD-EPI)AfAm 84 (>60 ml/min/1.73 sqM) Est GFR (CKD-EPI)NonAf 73 (>60 ml/min/1.73 sqM) Glucose 94 (74-99) mg/dL Calcium 9.9 (8.4-10.2) mg/dL Total Bilirubin 0.9 (0.2-1.3) mg/dL AST 34 (14-36) U/L ALT 14 (4-34) U/L Alkaline Phosphatase 133 H (38-126) U/L Troponin I (0.000-0.034) ng/mL Total Protein 6.9 (6.3-8.2) g/dL Albumin 4.2 (3.5-5.0) g/dL Urine Color Urine Appearance (Clear) Urine pH (5.0-8.0) Ur Specific Telferner (1.001-1.035) Urine Protein (Negative) Urine Glucose (UA) (Negative) Urine Ketones (Negative) Urine Blood (Negative) Urine Nitrite (Negative) Urine Bilirubin (Negative) Urine Urobilinogen (<2.0) mg/dL Ur Leukocyte Esterase (Negative) Urine RBC (0-5) /hpf Urine WBC (0-5) /hpf Ur Squamous Epith Cells (0-4) /hpf Urine Bacteria (None) /hpf Hyaline Casts (0-2) /lpf Urine Mucus (None) /hpf Urine Opiates Screen (NotDetected) Ur Oxycodone Screen (NotDetected) Urine Methadone Screen (NotDetected) Ur Propoxyphene Screen (NotDetected) Ur Barbiturates Screen (NotDetected) U Tricyclic Antidepress (NotDetected) Ur Phencyclidine Scrn (NotDetected) Ur Amphetamines Screen (NotDetected) U Methamphetamines Scrn (NotDetected) U Benzodiazepines Scrn (NotDetected) Urine Cocaine Screen (NotDetected) U Marijuana (THC) Screen (NotDetected) Serum Alcohol <10 mg/dL Blood Type Blood Type Recheck Bld Type Recheck Status Antibody Screen Spec Expiration Date 08/03/21 08/03/21 08/03/21 Range/Units 14:50 14:50 16:07 WBC (3.8-10.6) k/uL RBC (3.80-5.40) m/uL Hgb (11.4-16.0) gm/dL Hct (34.0-46.0) % MCV (80.0-100.0) fL MCH (25.0-35.0) pg MCHC (31.0-37.0) g/dL RDW (11.5-15.5) % Plt Count (150-450) k/uL MPV Neutrophils % % Lymphocytes % % Monocytes % % Eosinophils % % Basophils % % Neutrophils # (1.3-7.7) k/uL Lymphocytes # (1.0-4.8) k/uL Monocytes # (0-1.0) k/uL Eosinophils # (0-0.7) k/uL Basophils # (0-0.2) k/uL PT (9.0-12.0) sec INR (<1.2) APTT (22.0-30.0) sec Sodium (137-145) mmol/L Potassium (3.5-5.1) mmol/L Chloride (98-107) mmol/L Carbon Dioxide (22-30) mmol/L Anion Gap mmol/L BUN (7-17) mg/dL Creatinine (0.52-1.04) mg/dL Est GFR (CKD-EPI)AfAm (>60 ml/min/1.73 sqM) Est GFR (CKD-EPI)NonAf (>60 ml/min/1.73 sqM) Glucose (74-99) mg/dL Calcium (8.4-10.2) mg/dL Total Bilirubin (0.2-1.3) mg/dL AST (14-36) U/L ALT (4-34) U/L Alkaline Phosphatase (38-126) U/L Troponin I <0.012 (0.000-0.034) ng/mL Total Protein (6.3-8.2) g/dL Albumin (3.5-5.0) g/dL Urine Color Yellow Urine Appearance Cloudy H (Clear) Urine pH 6.5 (5.0-8.0) Ur Specific Telferner 1.017 (1.001-1.035) Urine Protein Negative (Negative) Urine Glucose (UA) Negative (Negative) Urine Ketones 1+ H (Negative) Urine Blood Negative (Negative) Urine Nitrite Positive H (Negative) Urine Bilirubin Negative (Negative) Urine Urobilinogen <2.0 (<2.0) mg/dL Ur Leukocyte Esterase Moderate H (Negative) Urine RBC 2 (0-5) /hpf Urine WBC 25 H (0-5) /hpf Ur Squamous Epith Cells 1 (0-4) /hpf Urine Bacteria Many H (None) /hpf Hyaline Casts 1 (0-2) /lpf Urine Mucus Rare H (None) /hpf Urine Opiates Screen Not Detected (NotDetected) Ur Oxycodone Screen Not Detected (NotDetected) Urine Methadone Screen Not Detected (NotDetected) Ur Propoxyphene Screen Not Detected (NotDetected) Ur Barbiturates Screen Not Detected (NotDetected) U Tricyclic Antidepress Not Detected (NotDetected) Ur Phencyclidine Scrn Not Detected (NotDetected) Ur Amphetamines Screen Not Detected (NotDetected) U Methamphetamines Scrn Not Detected (NotDetected) U Benzodiazepines Scrn Not Detected (NotDetected) Urine Cocaine Screen Not Detected (NotDetected) U Marijuana (THC) Screen Not Detected (NotDetected) Serum Alcohol mg/dL Blood Type O Negative Blood Type Recheck O Neg Bld Type Recheck Status No Antibody Screen NEGATIVE Spec Expiration Date 08/06/20212349 Disposition Clinical Impression: Fall, Facial abrasion, Closed head injury, Abrasion hand, Urinary tract infection Disposition: HOME SELF-CARE Condition: Good Instructions (If sedation given, give patient instructions): Urinary Tract Infection in Women (ED), Fall Prevention for Older Adults (ED), Abrasion (ED) Prescriptions: Amoxicillin/Potassium Clav [Augmentin 875-125 Tablet] 1 each PO Q12HR #14 tab Acetaminophen-Codeine 300-30mg [Tylenol w/codeine #3] 1 tab PO Q6H PRN 3 Days #12 tablet PRN Reason: Pain Is patient prescribed a controlled substance at d/c from ED?: No Referrals: Keith Yadav MD [Primary Care Provider] - 1-2 days Time of Disposition: 18:13
[2021-08-03 15:02] LABS: Basophils % (A) 1 %; Eosinophils # (A) 0.2 k/uL (0-0.7); Eosinophils % (A) 4 %; HCT 38.6 % (34.0-46.0); HGB 12.6 gm/dL (11.4-16.0); Lymphocytes # (A) 1.7 k/uL (1.0-4.8); Lymphocytes % (A) 26 %; MCH 29.3 pg (25.0-35.0); MCHC 32.5 g/dL (31.0-37.0); MCV 89.9 fL (80.0-100.0); Mean Platelet Volume 8.3; Monocytes # (A) 0.4 k/uL (0-1.0); Monocytes % (A) 6 %; Neutrophils % (A) 63 %; Platelet Count 219 k/uL (150-450); RBC 4.29 m/uL (3.80-5.40); WBC 6.4 k/uL (3.8-10.6)
--- NOTE | 2021-08-03 15:09 | XR ---
EXAMINATION TYPE: XR pelvis AP view DATE OF EXAM: 08/03/2021 CLINICAL HISTORY: pain TECHNIQUE: Single view the pelvis is submitted. FINDINGS: No evidence for fracture, dislocation or bony lesion. Joint spaces are well-preserved. S I joints appear symmetric. IMPRESSION: 1. No acute fracture or dislocation seen. ICD 10 NO FRACTURE, INITIAL EVALUATION
--- NOTE | 2021-08-03 15:10 | XR ---
EXAMINATION TYPE: XR chest 1V portable DATE OF EXAM: 08/03/2021 HISTORY: Shortness of breath. COMPARISON: 03/06/2021 TECHNIQUE: Single view of the chest is submitted. FINDINGS: Demonstrated are scattered senescent parenchymal change. There is no evidence for focal infiltrate. The heart is stable. Hilar and mediastinal structures are within normal limits. Degenerative changes are seen of the dorsal spine. IMPRESSION: 1. Chronic changes without evidence for acute pulmonary disease.
[2021-08-03 15:11] LABS: Partial Thromboplastin Time 25.6 sec (22.0-30.0); Prothrombin Time 11.2 sec (9.0-12.0)
[2021-08-03 15:12] LABS: ALT 14 U/L (4-34); AST 34 U/L (14-36); African American GFR (CKD) 84 (>60 ml/min/1.73 sqM); Albumin 4.2 g/dL (3.5-5.0); Alcohol <10 mg/dL; Alkaline Phosphatase 133 U/L (38-126); Anion Gap 8 mmol/L; Blood Urea Nitrogen 28 mg/dL (7-17); Calcium 9.9 mg/dL (8.4-10.2); Carbon Dioxide 28 mmol/L (22-30); Chloride 104 mmol/L (98-107); Glucose 94 mg/dL (74-99); Non-African American GFR(CKD) 73 (>60 ml/min/1.73 sqM); Potassium 4.2 mmol/L (3.5-5.1); Sodium 140 mmol/L (137-145); Total Bilirubin 0.9 mg/dL (0.2-1.3); Total Protein 6.9 g/dL (6.3-8.2)
--- NOTE | 2021-08-03 15:31 | CT ---
EXAMINATION TYPE: CT brain basilia alarcon con DATE OF EXAM: 08/03/2021 COMPARISON: 12/24/2015 HISTORY: facial laceration, fall, on blood thinners CT DLP: 946.[address] of the brain was performed. The ventricles, basal cisterns and sulci overlying the cerebral convexities demonstrate mildly enlarg ement. There is no evidence for intracranial hemorrhage or sulcal effacement. There is decreased attenuatio n about the periventricular white matter and deep white matter of both cerebral hemispheres, compatib le with chronic small vessel ischemia. No mass effects are seen. If symptoms persist consider MRI. Osseous calvarium is intact. Left frontal scalp hematoma noted. IMPRESSION: 1. Age related atrophic and chronic small vessel ischemic change without acute intracranial process seen at this time. CT Cervical Spine: Unenhanced CT of the cervical spine was performed with bone and soft tissue window settings submitted . Coronal and sagittal reconstruction is obtained. There is normal alignment and prevertebral soft tissues. No evidence for acute cervical fracture . Scattered degenerative disc disease and spondylosis. Biapical scarring. IMPRESSION: 1. No evidence for acute fracture or subluxation of the cervical spine.
--- NOTE | 2021-08-03 15:34 | CT ---
EXAMINATION TYPE: CT facial bones wo con DATE OF EXAM: 08/03/2021 COMPARISON: None HISTORY: facial laceration, fall, on blood thinners CT DLP: 732.[address] of the facial bones was performed in the axial and coronal planes. Bone and soft tissu e window settings are submitted. No significant soft tissue swelling is appreciated. I do not see evidence for displaced facial bone fracture or depressed facial bone fracture. The globes are intact. Mucous retention cyst right maxillary sinus. Frontal scalp hematoma. IMPRESSION: 1. No evidence for depressed or displaced facial bone fracture.
[2021-08-03] MEDS ORDERED: KETOROLAC 15 MG/ML 1 ML VIAL IVP STA (15:55)
[2021-08-03 16:23] LABS: Appearance,Urine Cloudy (Clear); Bacteria,Urine Many /hpf; Bilirubin,Urine Negative (Negative); Blood,Urine Negative (Negative); Color,Urine Yellow; Glucose,Urine (UA) Negative (Negative); Hyaline Casts,Urine 1 /lpf (0-2); Ketones,Urine 1+ (Negative); Leukocyte Esterase,Urine Moderate (Negative); Mucus,Urine Rare /hpf; Nitrite,Urine Positive (Negative); PH, Urine 6.5 (5.0-8.0); Protein,Urine Negative (Negative); RBC,Urine 2 /hpf (0-5); Specific Gravity,Urine 1.017 (1.001-1.035); Squamous Epithelial Cell,Urine 1 /hpf (0-4); Urobilinogen,Urine <2.0 mg/dL (<2.0); WBC,Urine 25 /hpf (0-5)
--- NOTE | 2021-08-03 16:29 | XR ---
EXAMINATION TYPE: XR knee complete LT DATE OF EXAM: 08/03/2021 CLINICAL HISTORY: pain TECHNIQUE: Three views of the left knee are obtained. COMPARISON: None. FINDINGS: There is no acute fracture/dislocation. The tri-compartment joint spaces appear moderatel y narrowed. The overlying soft tissue appears unremarkable. IMPRESSION: There is no acute fracture or dislocation ICD 10 NO FRACTURE, INITIAL EVALUATION
--- NOTE | 2021-08-03 16:30 | XR ---
EXAMINATION TYPE: XR hand complete RT DATE OF EXAM: 08/03/2021 CLINICAL HISTORY: pain TECHNIQUE: Frontal, lateral and oblique images of the right hand are obtained. COMPARISON: None. FINDINGS: There is no acute fracture/dislocation evident. The joint spaces appear within normal limi ts. The overlying soft tissue appears unremarkable. IMPRESSION: There is no acute fracture or dislocation ICD 10 NO FRACTURE, INITIAL EVALUATION
[2021-08-03 17:14] LABS: Amphetamine Screen,Urine Not Detected (NotDetected); Barbiturate Screen,Urine Not Detected (NotDetected); Benzodiazepines Screen,Urine Not Detected (NotDetected); Cocaine Screen,Urine Not Detected (NotDetected); Methadone Screen, Urine Not Detected (NotDetected); Opiate Screen,Urine Not Detected (NotDetected); Oxycodone Screen, Urine Not Detected (NotDetected); Phencyclidine Screen,Urine Not Detected (NotDetected); Tricyclic Antidepressant,Urine Not Detected (NotDetected); Urn Cannabinoid Scrn Not Detected (NotDetected)
[2021-08-03] MEDS ORDERED: cefTRIAXone IN SWFI 1,000 MG/10 ML SYRINGE IVP STA (17:46)
[2021-08-03] MEDS ORDERED: AMOXIC-POT CLAV 875-125MG 1 EACH TAB PO STA (18:01)
[2021-08-03] MEDS ORDERED: BACITRACIN OINT 1 EACH PACKET TOPICAL ONE (18:09)
[2021-08-03] MEDS ORDERED: ACET/COD 300 MG/30 MG STARTER PACK 6 TAB BTL PO STA (20:08)
== END 2021-08-03 19:10 | disposition home or self-care (01) ==
LOC: EC 14:24
DX: S00.81XA Abrasion of other part of head, initial encounter (principal); S09.90XA Unspecified injury of head, initial encounter; N39.0 Urinary tract infection, site not specified; S60.511A Abrasion of right hand, initial encounter; I10 Essential (primary) hypertension; E07.9 Disorder of thyroid, unspecified; M19.90 Unspecified osteoarthritis, unspecified site; Z91.09 Other allergy status, other than to drugs and biological substances; Z91.040 Latex allergy status; Z88.3 Allergy status to other anti-infective agents; Z88.8 Allergy status to other drugs, medicaments and biological substances; Z88.1 Allergy status to other antibiotic agents; Z88.2 Allergy status to sulfonamides; Z79.899 Other long term (current) drug therapy; Z79.890 Hormone replacement therapy; W19.XXXA Unspecified fall, initial encounter
CPT/HCPCS: 36415; 93005; 86900; 86901; 80053; 84484; 85025; 85610; 85730; 86850; 81001; 80306; 72170; 73130; 73562; 71045; 72125; 70486; 70450; 99284; 96374; L0120; G0480; J1885; 80320

== ENCOUNTER → 2021-08-20 | Outpatient (CLI) | payer MEDICARE, BC ==
[2021-08-21 13:58] LABS: Coronavirus SARS CoV-2 Detected (Not Detected)
== END | disposition home or self-care (01) ==
LOC: LABWHC1 10:45
PROVIDERS: ATTEND Family Medicine
DX: J06.9 Acute upper respiratory infection, unspecified (principal)
CPT/HCPCS: 87502; U0003; C9803

== ENCOUNTER → 2022-03-16 | Outpatient (CLI) | payer MEDICARE, BC ==
--- NOTE | 2022-03-16 15:33 | CT ---
EXAMINATION TYPE: CT abdomen pelvis wo con CT DLP: 451.1 mGycm, Automated exposure control for dose reduction was used. DATE OF EXAM: 03/16/2022 3:17 PM COMPARISON: CT abdomen pelvis most recent from 02/24/2021 . CLINICAL INDICATION:Female, 86 years old with history of N20.0 calculus kidney; TECHNIQUE: Standard CT of the abdomen and pelvis without IV or oral contrast. Lack of IV or oral co ntrast limits evaluation of solid and hollow organ viscera. Coronal and sagittal reformats were perfo rmed. FINDINGS: LOWER CHEST: Right middle lobe and lingular scarring. ABDOMEN LIVER: Unremarkable noncontrast appearance. GALLBLADDER AND BILE DUCTS: The gallbladder is surgically absent. No biliary duct dilatation. PANCREAS: Unremarkable noncontrast appearance. SPLEEN: Unremarkable noncontrast appearance. ADRENAL GLANDS: Stable thickening of the right adrenal gland. Left adrenal gland demonstrates unremar kable noncontrast appearance. KIDNEYS AND URETERS: No hydronephrosis. Several nonobstructive bilateral renal calculi. Largest in th e right kidney measures up to 4 mm. Largest in the lower pole the left kidney measures up to 5.5 mm. No ureteral calculi. PELVIS BLADDER: Under distended, limiting evaluation. REPRODUCTIVE: Focal calcifications in the uterine myometrium may reflect calcified myomas. No suspici ous adnexal mass. ABDOMEN & PELVIS STOMACH AND BOWEL: Postsurgical changes of the stomach. Colonic diverticulosis without evidence for a cute diverticulitis. The appendix is within normal limits. No evidence of bowel obstruction. PERITONEUM: No evidence of pneumoperitoneum or free fluid. VASCULATURE: Moderate atherosclerotic calcifications are present throughout the abdominal aorta and i ts branches. Ectasia of the infrarenal abdominal aorta measuring up to 2.4 cm. Bilateral fusiform com mon iliac artery aneurysms with the right measuring 1.9 cm and the left measuring 1.8 cm. Pelvic phle bolith is identified. MUSCULOSKELETAL: No acute osseous abnormalities. Multilevel degenerative changes visualized spine. Ce ntral compression deformities versus Schmorl's nodes involving the L1 and L2 vertebral bodies. Correl ate with point tenderness. Mild retrolisthesis of L5 on S1. LYMPH NODES: No gross evidence for lymphadenopathy. SOFT TISSUE/ABDOMINAL WALL: Stable hyperdense lesion along the anterior pelvic subcutaneous tissues m easuring 2.1 cm. This may represent a benign process such as a sebaceous cyst. IMPRESSION: 1. No evidence for obstructive uropathy. 2. Nonobstructive bilateral renal calculi measuring up to 5.5 mm on the left. 3. Stable bilateral common iliac artery aneurysms with ectasia of the infrarenal abdominal aorta destiny uring up to 2.4 cm. 4. Colonic diverticulosis without evidence for acute diverticulitis.
== END | disposition home or self-care (01) ==
LOC: RADCTMAIN 14:56
PROVIDERS: ATTEND Urology
DX: N20.0 Calculus of kidney (principal); K57.30 Diverticulosis of large intestine without perforation or abscess without bleeding; I72.3 Aneurysm of iliac artery
CPT/HCPCS: 74176

== ENCOUNTER → 2022-04-26 | Outpatient (CLI) | payer MEDICARE, BC ==
--- NOTE | 2022-04-26 20:00 | BD ---
"EXAMINATION TYPE: Axial Bone Density DATE OF EXAM: 04/26/2022 CLINICAL HISTORY: 86 years year old Female. ICD-10 CODE: Z78.0 Post [place] M85.88 Height: 62 Weight: 162 FRAX RISK QUESTIONS: Alcohol (3 or more units per day): NO Family History (Parent hip fracture): NO Glucocorticoids (More than 3mos): NO History of Fracture in Adulthood: NO Secondary Osteoporosis: 1. Type 1 Diabetes: NO 2. Hyperthyroidism: NO 3. Menopause before 45: NO 4. Malnutrition: NO 5. Chronic liver disease: NO Rheumatoid Arthritis: NO Current Tobacco Use: NO RISK FACTORS HISTORY OF: Hip Fracture (Right/Left): NO Spine Fracture: NO History of Wrist Fracture: NO Surgery to Spine/Hip(right/left)/Wrist (right/left): NO Family History of Osteoporosis: NO Active: NO Diet low in dairy products/other sources of calcium: YES Postmenopausal woman: YES Take estrogen and/or progesterone medications: NO Lost more than 2 inches in height since high school: YES Frequent falls: YES Poor Health: NO Hyperparathyroidism: NO Adrenal Insufficiency: NO MEDICATIONS: Prednisone or other steroids: NO Thyroid Medications: YES Which medication: LEVOTHYROXIN How Long: PAST 15 YEARS Osteoporosis Medications: NO Additional Medications: ELIQUIS, METOPROLOL, VIT D, CHOLESTEROL MEDS EXAM MEASUREMENTS: Bone mineral densitometry was performed using the [employer] - innovate | mentor | invest System. Bone mineral density as measured about the Lumbar spine is: ----- L1-L4(G/cm2): 1.001 T Score Values are as follows: ----- L1: -1.8 ----- L2: -1.9 ----- L3: -1.8 ----- L4: -0.8 ----- L1-L4: -1.5 Bone mineral density has: DECREASED -11.4 % since study of: 03/10/2020 Bone mineral density about the R hip (g/cm2): 0.868 Bone mineral density about the L hip (g/cm2): 0.920 T Score values are as follows: -----R Neck: -1.2 -----L Neck: -0.8 -----R Total: -1.1 -----L Total: -1.4 Bone mineral density has: DECREASED -3.4 % since study of: 03/10/2020 FRAX%s: The graph provided illustrates a 10.9% chance for a major osteoporotic fx and a 2.9% chance f or the hips probability for fx in 10 years time. IMPRESSION: Osteopenia (T Score between -2.5 and -1). There is slightly increased risk of fracture and the patient may be considered for treatment. Re-Screen 2-5 years. NOTE: T-SCORE=SD OF THE YOUNG ADULT MEAN."
--- NOTE | 2022-04-27 10:31 | MM ---
Reason for Exam: Screening (asymptomatic). Last screening mammogram was performed 12 month(s) ago. Patient History: Menarche at age 12. First Full-Term at age 18. Postmenopausal. 02/19/2005, Excisional Biopsy on the Left side. Cyst Aspiration on the Right side. 01/08/2005, High risk Core Biopsy on the left side. 01/08/2005, High risk Core Biopsy on the left side. Prior Study Comparison: 03/07/2019 Bilateral Screening Mammogram, [facility]. 03/10/2020 Bilateral Screening Mammogram, [facility]. 04/22/2021 Bilateral Screening Mammogram, [facility]. Tissue Density: The breast tissue is heterogeneously dense. This may lower the sensitivity of mammography. Findings: Analyzed By CAD. Scattered benign-appearing round and vascular calcifications bilaterally are redemonstrated stable distortion in the left breast from prior excisional biopsy upper outer aspect. Benign-appearing right axillary lymph nodes are redemonstrated. There is no suspicious new group of microcalcifications or new suspicious mass in either breast. Overall Assessment: Benign, BI-RAD 2 Management: Screening Mammogram of both breasts in 1 year. Some advise bilateral breast ultrasound surveillance in patients with background dense tissue. A clinical breast exam by your physician is recommended on an annual basis and results should be correlated with mammographic findings. Electronically signed and approved by: Slade Duarte M.D.
== END | disposition home or self-care (01) ==
LOC: RADBDWWP 12:45
PROVIDERS: ATTEND Obstetrics & Gynecology
DX: Z12.31 Encounter for screening mammogram for malignant neoplasm of breast (principal); M85.89 Other specified disorders of bone density and structure, multiple sites; Z78.0 Asymptomatic menopausal state
CPT/HCPCS: 77063; 77067; 77080

== ENCOUNTER → 2023-04-27 | Outpatient (CLI) | payer MEDICARE, BC ==
--- NOTE | 2023-04-29 07:57 | MM ---
Reason for Exam: Screening (asymptomatic). Last mammogram was performed 1 year(s) and 1 month(s) ago. Patient History: Menarche at age 12. First Full-Term at age 18. Postmenopausal. 02/19/2005, Excisional Biopsy on the Left side. Cyst Aspiration on the Right side. 01/08/2005, High risk Core Biopsy on the left side. 01/08/2005, High risk Core Biopsy on the left side. Niece had breast cancer. Prior Study Comparison: 03/10/2020 Bilateral Screening Mammogram, [facility]. 04/22/2021 Bilateral Screening Mammogram, [facility]. 04/26/2022 Bilateral MG 3D screening mammo w/cad, [facility]. Tissue Density: The breast tissue is heterogeneously dense. This may lower the sensitivity of mammography. Findings: Analyzed By CAD. Pattern appears symmetrical and stable. No significant interval change is evident. Benign vascular calcifications within the right breast. There is a stable focal asymmetry within the mid right breast. There are increasing calcifications within the anterior subareolar right breast, better visualized on the mediolateral oblique view. Additional evaluation and workup is recommended. Left breast: No suspicious groups of microcalcifications, spiculated or lobular masses, architectural distortion or other secondary signs of malignancy are mammographically apparent. Overall Assessment: Incomplete: need additional imaging evaluation, BI-RAD 0 Management: Diagnostic Mammogram of the right breast. A negative mammogram report should not preclude additional follow up of suspicious palpable abnormalities. Patient should continue monthly self breast exam. A clinical breast exam by your physician is recommended on an annual basis and results should be correlated with mammographic findings. Electronically signed and approved by: Lc Carrillo D.O. Radiologis
== END | disposition home or self-care (01) ==
LOC: RADMAMWWP 14:58
PROVIDERS: ATTEND Obstetrics & Gynecology
DX: Z12.31 Encounter for screening mammogram for malignant neoplasm of breast (principal); Z78.0 Asymptomatic menopausal state; Z80.3 Family history of malignant neoplasm of breast
CPT/HCPCS: 77063; 77067

== ENCOUNTER → 2023-05-10 | Outpatient (CLI) | payer MEDICARE, BC ==
--- NOTE | 2023-05-11 11:24 | MM ---
Reason for Exam: Additional evaluation requested from abnormal screening. Last screening mammogram was performed less than 1 month ago. Patient History: Menarche at age 12. First Full-Term at age 18. Postmenopausal. 02/19/2005, Excisional Biopsy on the Left side. Cyst Aspiration on the Right side. 01/08/2005, High risk Core Biopsy on the left side. 01/08/2005, High risk Core Biopsy on the left side. Niece had breast cancer. Tissue Density: Right: The breast tissue is heterogeneously dense. This may lower the sensitivity of mammography. Findings: Analyzed By CAD. Increasing group of punctate calcifications within the right breast retroareolar region spanning an area of 2.4 x 1.3 cm. Overall Assessment: Suspicious, BI-RAD 4 Management: Stereotactic Core Biopsy of the right breast. A clinical breast exam by your physician is recommended on an annual basis and results should be correlated with mammographic findings. This exam should not preclude additional follow-up of suspicious palpable abnormalities. Results were given to the patient verbally at the time of exam. Electronically signed and approved by: Arsenio Sorensen D.O.
== END | disposition home or self-care (01) ==
LOC: RADMAMWWP 14:50
PROVIDERS: ATTEND Obstetrics & Gynecology
DX: R92.331 Mammographic heterogeneous density, right breast (principal); Z78.0 Asymptomatic menopausal state; Z80.3 Family history of malignant neoplasm of breast
CPT/HCPCS: 77065; G0279; 77061

== ENCOUNTER → 2023-05-30 | Day surgery (SDC) | payer MEDICARE, BC ==
[2023-05-30 10:50] VITALS: RESP 12
[2023-05-30 11:38] VITALS: BP 144/77; PULSE 57; TEMP 98.7
== END ==
LOC: RADMAMWWP 10:01
PROVIDERS: ATTEND Surgery
DX: D05.11 Intraductal carcinoma in situ of right breast (principal)
CPT/HCPCS: 88305; 88342; 88341; 19081; A4648; J2001

== ENCOUNTER → 2023-06-29 | Outpatient (CLI) | payer MEDICARE, BC ==
--- NOTE | 2023-06-30 08:15 | XR ---
EXAMINATION TYPE: XR lumbar spine 2 or 3V DATE OF EXAM: 06/29/2023 3:20 PM CLINICAL INDICATION:Female, 87 years old with history of M54.32; [facility] COMPARISON: 10/05/2018 TECHNIQUE: XR lumbar spine 2 or 3V - Frontal, lateral and coned in L5-S1 lateral views of the spine. FINDINGS: No evidence of any acute osseous pathology. No evidence of loss of vertebral body height i s seen. There is straightened alignment of the lumbar vertebral bodies. Scattered disc space narrowin g. Multilevel marginal osteophyte formation throughout the visualized spine. There is facet joint art hropathy throughout the spine. No foraminal stenosis worse at L5-S1 with at least moderate stenosis. Atherosclerosis of the arterial vasculature. Surgical clips project in the upper abdomen. Suture also projects in the upper abdomen IMPRESSION: 1. No acute fracture. 2. Moderate to severe multilevel disc degeneration.
== END | disposition home or self-care (01) ==
LOC: RADXRMAIN 15:06
PROVIDERS: ATTEND Family Medicine
DX: M51.16 Intervertebral disc disorders with radiculopathy, lumbar region (principal)
CPT/HCPCS: 72100

== ENCOUNTER → 2023-11-25 | Outpatient (CLI) | payer MEDICARE, BC ==
--- NOTE | 2023-11-25 12:11 | US ---
EXAMINATION TYPE: US venous doppler duplex LE DATE OF EXAM: 11/25/2023 11:17 AM COMPARISON: US 2019 CLINICAL INDICATION: Female, 88 years old with history of R60.0 LOCALIZED EDEMA; Edema. No hx of DVT. Patient has been off of eliquis x 3 days. SIDE PERFORMED: Bilateral TECHNIQUE: The lower extremity deep venous system is examined utilizing real time linear array sonog joi with graded compression, doppler sonography and color-flow sonography. VESSELS IMAGED: Common Femoral Vein Deep Femoral Vein Greater Saphenous Vein * Femoral Vein Popliteal Vein Small Saphenous Vein * Proximal Calf Veins (* superficial vessels) Right Leg: No evidence of DVT. Left Leg: No evidence of DVT. IMPRESSION: 1. Bilateral lower extremity ultrasound negative for deep venous thrombosis.
== END | disposition home or self-care (01) ==
LOC: RADUSWWP 10:49
PROVIDERS: ATTEND Family Medicine
DX: R60.0 Localized edema (principal)
CPT/HCPCS: 93970

== ENCOUNTER 2024-10-08 15:14 | Emergency (ER) | payer MEDICARE, BC ==
[2024-10-08 15:20] VITALS: TEMP 97.8
--- NOTE | 2024-10-08 16:10 | ED ---
Back Pain HPI - General Chief Complaint: Back Pain/Injury Stated Complaint: Back pain Time Seen by Provider: 10/08/24 16:06 Source: patient, family, RN notes reviewed Limitations: no limitations - History of Present Illness Initial Comments: 88-year-old female presenting for right hip pain x 1 month. Patient lives with her daughter and usually ambulates with a walker however daughters report remarkable decline in mobility over the past week. Describes a sharp, shooting pain from the right hip radiating down the right leg that is worse with movement. She does report a fall in the bathroom last week onto her buttocks however reports this pain began 1 month ago. Denies head injury from the fall. Denies urinary symptoms, fever, chills, abdominal pain. States she has had this pain before in the left leg but not as severe. She does take Eliquis for atrial fibrillation. She has an upcoming appointment with pain management for chronic back pain. - Related Data Home Medications Medication Instructions Recorded Confirmed Cyanocobalamin [Vitamin B-12] 500 mcg PO DAILY@1200 03/10/16 10/08/24 Apixaban [Eliquis] 2.5 mg PO DIRECTED 05/11/23 10/08/24 Metoprolol Tartrate [Lopressor] 12.5 mg PO BID 05/11/23 10/08/24 Vit C/E/Zn/Coppr/Lutein/Zeaxan 1 cap PO BID 08/01/23 10/08/24 [Preservision Areds 2 Softgel] Cholecalciferol (Vitamin D3) 50 mcg PO DAILY@1200 10/08/24 10/08/24 [Vitamin D3 (50 Mcg = 2000 Iu)] Dicyclomine [Bentyl] 10 mg PO TID 10/08/24 10/08/24 Letrozole [Femara] 2.5 mg PO HS 10/08/24 10/08/24 Levothyroxine Sodium [Synthroid] 100 mcg PO DAILY 10/08/24 10/08/24 Magnesium Oxide [Magnesium] 500 mg PO DAILY@1200 10/08/24 10/08/24 Pregabalin [Lyrica] 75 mg PO BID 10/08/24 10/08/24 Previous Rx's Medication Instructions Recorded HYDROcodone/APAP 5-325MG [[place] 5] 1 each PO Q6HR PRN #12 tab 10/08/24 Allergies Allergy/AdvReac Type Severity Reaction Status Date / Time ceftriaxone Allergy Unknown Rash/Hives Verified 10/08/24 17:16 latex Allergy Unknown skin peels Verified 10/08/24 17:16 levofloxacin [From Levaquin] Allergy Unknown Nausea & Verified 10/08/24 17:16 Vomiting nitrofurantoin Allergy Unknown Nausea & Verified 10/08/24 17:16 [From Macrobid] Vomiting & Diarrhea sulfamethoxazole Allergy Unknown Nausea & Verified 10/08/24 17:16 [From Bactrim] Vomiting trimethoprim [From Bactrim] Allergy Unknown Nausea & Verified 10/08/24 17:16 Vomiting Review of Systems ROS Statement: Those systems with pertinent positive or pertinent negative responses have been documented in the HPI. ROS Other: All systems not noted in ROS Statement are negative. Past Medical History Past Medical History: Atrial Fibrillation, Cancer, Dementia, Hyperlipidemia, Hypertension, Osteoarthritis (OA), Thyroid Disorder Additional Past Medical History / Comment(s): recurrent uti's, hx of E. coli septicemia February 2016, urinary incontinence, spinal stenosis, degenerative arthritis, ddd with chronic back pain, left leg pain, left foot hammer toes (wears brace), diverticulitis , varicose veins, uses walker prn., kidney stones., sinus problems., currently receiving physical therapy for back pain., breast cancer. History of Any Multi-Drug Resistant Organisms: ESBL Date of last positivie culture/infection: ESBL 06/12/15 MDRO Source:: urine Past Surgical History: Breast Surgery, Cholecystectomy, Orthopedic Surgery Additional Past Surgical History / Comment(s): pain clinic procedures, cystoscopy with coaptite injections x 2, lithotripsy, hemorroidectomy, ivonne cataract with lens implants, varicose vein surgery, D&C, L breast biopsy x 2, ivonne great toenails removed, carpal tunnel release R wrist, R knee arthroscopy, lipomas removed from L leg. , States hx left breast surgery and right breast "compression tx" Past Anesthesia/Blood Transfusion Reactions: No Reported Reaction Past Psychological History: No Psychological Hx Reported Smoking Status: Former smoker Past Alcohol Use History: Rare Past Drug Use History: None Reported - Past Family History Brother(s) History Unknown: Yes Family Medical History: Cancer Sister(s) Family Medical History: Deep Vein Thrombosis (DVT) Additional Family Medical History / Comment(s): DVT IN GROIN Father History Unknown: Yes General Exam Limitations: no limitations General appearance: alert, in no apparent distress Head exam: Present: atraumatic, normocephalic, normal inspection Eye exam: Present: normal appearance, PERRL, EOMI. Absent: scleral icterus, conjunctival injection, periorbital swelling GI/Abdominal exam: Present: soft, normal bowel sounds. Absent: distended, tenderness, guarding, rebound, rigid Right Hip exam: Present: normal inspection, full ROM (Pain with flexion and extension of right hip), tenderness (Diffuse right hip tenderness to palpation). Absent: swelling, abrasion, erythema Upper Leg exam: Present: normal inspection, full ROM. Absent: tenderness, swelling Knee exam: Present: normal inspection, full ROM. Absent: tenderness, swelling Lower Leg exam: Present: normal inspection, full ROM. Absent: tenderness, swelling Ankle exam: Present: normal inspection, full ROM. Absent: tenderness, swelling Foot/Toe exam: Present: normal inspection, full ROM. Absent: tenderness, swelling Neurovascular tendon exam: Present: no vascular compromise. Absent: pulse deficit, abnormal cap refill, motor deficit Neurological exam: Present: alert, oriented X3 Psychiatric exam: Present: normal affect, normal mood Skin exam: Present: warm, dry, intact, normal color. Absent: rash Course Vital Signs 10/08/24 15:15 Temperature 97.8 F Pulse Rate 69 Respiratory 20 Rate Blood Pressure 121/79 O2 Sat by Pulse 97 Oximetry Medical Decision Making - Medical Decision Making Was pt. sent in by a medical professional or institution (, PA, MARKETING REP, urgent care, hospital, or fdc...) When possible be specific @ -No Did you speak to anyone other than the patient for history (EMS, parent, family, police, friend...)? What history was obtained from this source @ -Daughters supplemented history Did you review nursing and triage notes (agree or disagree)? Why? @ -I reviewed and agree with nursing and triage notes Were old charts reviewed (outside hosp., previous admission, EMS record, old EKG, old radiological studies, urgent care reports/EKG's, fdc records)? Report findings @ -No old charts were reviewed Differential Diagnosis (chest pain, altered mental status, abdominal pain women, abdominal pain men, vaginal bleeding, weakness, fever, dyspnea, syncope, headache, dizziness, GI bleed, back pain, seizure, CVA, palpatations, mental h ealth, musculoskeletal)? @ -Differential Back Pain: Strain, zoster, cauda equina syndrome, epidural abscess, vertebral osteomyelitis, discitis, fracture, subluxation, disc herniation, DJD, spinal russell nosis, dissection, AAA, pancreatitis, peptic ulcer disease, pyelonephritis, kidney stone, this is not meant to be an all-inclusive list. EKG interpreted by me (3pts min.). @ -None X-rays interpreted by me (1pt min.). @ -None done CT interpreted by me (1pt min.). @ -CT right hip reveals no acute process U/S interpreted by me (1pt. min.). @ -None done What testing was considered but not performed or refused? (CT, X-rays, U/S, labs)? Why? @ -None What meds were considered but not given or refused? Why? @ -None Did you discuss the management of the patient with other professionals (professionals i.e. , PA, MARKETING REP, lab, RT, psych nurse, social human services assistants, exceptional student education teacher, teacher, transit authority police officer, case management director)? Give summary @ -No Was smoking cessation discussed for >3mins.? @ -No Was critical care preformed (if so, how long)? @ -No Were there social determinants of health that impacted care today? How? (H omelessness, low income, unemployed, alcoholism, drug addiction, transportation, low edu. Level, literacy, decrease access to med. care, penitentiary, rehab)? @ -No Was there de-escalation of care discussed even if they declined (Discuss DNR or withdrawal of care, Hospice)? DNR status @ -No What co-morbidities impacted this encounter? (DM, HTN, Smoking, COPD, CAD, Cancer, CVA, ARF, Chemo, Hep., AIDS, mental health diagnosis, sleep apnea, morbid obesity)? @ -None Was patient admitted / discharged? Hospital course, mention meds given and route, prescriptions, significant lab abnormalities, going to OR and other pertinent info. @ - discharged. 88-year-old female presenting for right hip pain x 1 month. She does admit to a fall onto her buttocks 1 week ago. Neurovascularly intact. She is diffusely tender to palpation to the right hip. Provided with analgesics and IV fluids. Lab work largely unremarkable. White blood cell count normal at 5. Urinalysis negative for urinary tract infection or hematuria. CT right hip negative for fracture or dislocation. Discussed negative results with patient and family. I do not identify any emergent etiology causing symptoms today. Patient can be safely discharged with analgesics and patient has pain management appointment in 2 days. Appropriate return precautions discussed. Case was discussed with my ED attending Dr. Monge. Undiagnosed new problem with uncertain prognosis? @ -No Drug Therapy requiring intensive monitoring for toxicity (Heparin, Nitro, Insulin, Cardizem)? @ -No Were any procedures done? @ -No Diagnosis/symptom? @ -Right hip pain Acute, or Chronic, or Acute on Chronic? @ -Acute Uncomplicated (without systemic symptoms) or Complicated (systemic symptoms)? @ -Uncomplicated Side effects of treatment? @ -No Exacerbation, Progression, or Severe Exacerbation? @ -No Poses a threat to life or bodily function? How? (Chest pain, USA, MS, pneumonia, PE, COPD, DKA, ARF, appy, cholecystitis, CVA, Diverticulitis, Homicidal, Shaina cidal, threat to staff... and all critical care pts) @ -No - Lab Data Result diagrams: 10/08/24 16:28 10/08/24 16:28 Lab Results 10/08/24 10/08/24 10/08/24 Range/Units 16:28 16:28 16:28 WBC 5.28 (4.50-10.00) 10*3/uL RBC 4.35 (4.10-5.20) 10*6/uL Hgb 13.2 (12.0-15.0) g/dL Hct 40.3 (37.2-46.3) % MCV 92.6 (80.0-97.0) fL MCH 30.3 (27.0-32.0) pg MCHC 32.8 (32.0-37.0) g/dL Plt Count 194 (140-440) 10*3/uL MPV 10.3 (9.5-12.2) fL Immature Gran % (Auto) 0.4 % Neutrophils % 54.4 % Lymphocytes % 29.5 % Monocytes % 10.4 % Eosinophils % 4.5 % Basophils % 0.8 % Immature Gran # 0.02 (0.00-0.04) 10*3/uL Neutrophils # 2.87 (1.80-7.70) 10*3/uL Lymphocytes # 1.56 (0.90-5.00) 10*3/uL Monocytes # 0.55 (0.20-1.00) 10*3/uL Eosinophils # 0.24 (0.04-0.35) 10*3/uL Basophils # 0.04 (0.00-0.10) 10*3/uL Sodium 139 (137-145) mmol/L Potassium 4.2 (3.5-5.1) mmol/L Chloride 103 (98-107) mmol/L Carbon Dioxide 32 H (22-30) mmol/L Anion Gap 4 mmol/L BUN 32 H (7-17) mg/dL Creatinine 0.74 (0.52-1.04) mg/dL Est GFR (CKD-EPI)AfAm 84 (>60 ml/min/1.73 sqM) Est GFR (CKD-EPI)NonAf 73 (>60 ml/min/1.73 sqM) Glucose 77 (74-99) mg/dL Calcium 9.7 (8.4-10.2) mg/dL Total Bilirubin 0.9 (0.2-1.3) mg/dL AST 31 (14-36) U/L ALT 15 (4-34) U/L Alkaline Phosphatase 132 H (38-126) U/L Total Protein 6.5 (6.3-8.2) g/dL Albumin 3.9 (3.5-5.0) g/dL Urine Color Colorless Urine Appearance Clear (Clear) Urine pH 7.0 (5.0-8.0) Ur Specific [place] 1.013 (1.001-1.035) Urine Protein Negative (Negative) Urine Glucose (UA) Negative (Negative) Urine Ketones Negative (Negative) Urine Blood Negative (Negative) Urine Nitrite Negative (Negative) Urine Bilirubin Negative (Negative) Urine Urobilinogen <2.0 (<2.0) mg/dL Ur Leukocyte Esterase Small H (Negative) Urine RBC <1 (0-5) /hpf Urine WBC 4 (0-5) /hpf Urine Mucus Rare H (None) /hpf Disposition Clinical Impression: Right hip pain Disposition: HOME SELF-CARE Condition: Stable Instructions (If sedation given, give patient instructions): Hip Pain (ED) Additional Instructions: Take [place] as needed for pain until follow-up with pain management in 2 days. Please return to the Emergency Department if symptoms worsen or any other concerns. Prescriptions: HYDROcodone/APAP 5-325MG [[place] 5] 1 each PO Q6HR PRN #12 tab PRN Reason: Pain Is patient prescribed a controlled substance at d/c from ED?: Yes When asked, does pt state using other controlled substances?: No If prescribed controlled substance>3 days was MAPS reviewed?: Prescribed <3 Days If opioid is for acute pain is fill amount 7 days or less?: Yes Referrals: Keith Yadav MD [Primary Care Provider] - 1-2 days Time of Disposition: 18:09
[2024-10-08 16:34] LABS: Basophils # (A) 0.04 10*3/uL (0.00-0.10); Basophils % (A) 0.8 %; Eosinophils # (A) 0.24 10*3/uL (0.04-0.35); Eosinophils % (A) 4.5 %; HCT 40.3 % (37.2-46.3); HGB 13.2 g/dL (12.0-15.0); Lymphocytes # (A) 1.56 10*3/uL (0.90-5.00); Lymphocytes % (A) 29.5 %; MCH 30.3 pg (27.0-32.0); MCHC 32.8 g/dL (32.0-37.0); MCV 92.6 fL (80.0-97.0); Mean Platelet Volume 10.3 fL (9.5-12.2); Monocytes # (A) 0.55 10*3/uL (0.20-1.00); Monocytes % (A) 10.4 %; Neutrophils # (A) 2.87 10*3/uL (1.80-7.70); Neutrophils % (A) 54.4 %; Platelet Count 194 10*3/uL (140-440); RBC 4.35 10*6/uL (4.10-5.20); RDW 13.8 % (11.5-14.5); WBC 5.28 10*3/uL (4.50-10.00)
[2024-10-08 16:35] LABS: Appearance,Urine Clear (Clear); Bilirubin,Urine Negative (Negative); Blood,Urine Negative (Negative); Color,Urine Colorless; Glucose,Urine (UA) Negative (Negative); Ketones,Urine Negative (Negative); Leukocyte Esterase,Urine Small (Negative); Mucus,Urine Rare /hpf; Nitrite,Urine Negative (Negative); Protein,Urine Negative (Negative); RBC,Urine <1 /hpf (0-5); Specific Gravity,Urine 1.013 (1.001-1.035); Urobilinogen,Urine <2.0 mg/dL (<2.0); WBC,Urine 4 /hpf (0-5)
[2024-10-08] MEDS: DEXAMETHASONE SOD PHOSPHATE 10 MG/ML 1 ML VIAL IVP STA (16:40)
[2024-10-08] MEDS: ACETAMINOPHEN TAB 325 MG TAB PO STA (16:40)
[2024-10-08] MEDS: SODIUM CHLORIDE 0.9% 500 ML 500 ML IV STA (16:42)
[2024-10-08 16:51] LABS: ALT 15 U/L (4-34); AST 31 U/L (14-36); African American GFR (CKD) 84 (>60 ml/min/1.73 sqM); Albumin 3.9 g/dL (3.5-5.0); Alkaline Phosphatase 132 U/L (38-126); Anion Gap 4 mmol/L; Blood Urea Nitrogen 32 mg/dL (7-17); Calcium 9.7 mg/dL (8.4-10.2); Carbon Dioxide 32 mmol/L (22-30); Chloride 103 mmol/L (98-107); Glucose 77 mg/dL (74-99); Non-African American GFR(CKD) 73 (>60 ml/min/1.73 sqM); Potassium 4.2 mmol/L (3.5-5.1); Sodium 139 mmol/L (137-145); Total Bilirubin 0.9 mg/dL (0.2-1.3); Total Protein 6.5 g/dL (6.3-8.2)
--- NOTE | 2024-10-08 17:32 | CT ---
EXAMINATION TYPE: CT hip RT wo con CT DLP: 670.8 mGycm, Automated exposure control for dose reduction was used. DATE OF EXAM: 10/08/2024 5:12 PM COMPARISON: CT abdomen and pelvis 03/16/2022 CLINICAL INDICATION:Female, 88 years old with history of right hip pain; PHH, Rt hip pain. TECHNIQUE: Axial images were obtained of the right hip without the use of IV contrast. Additional co henri and sagittal reformatted images and soft tissue and bone window were obtained for review. 3-D r econstruction was created on a separate workstation. FINDINGS: Diffuse bone demineralization which limits evaluation. No acute fracture, subluxation or di slocation. Osteoarthritic changes of the right hip with medial and superior joint space narrowing wit h marginal osteophytosis. Small subchondral cystic changes of the acetabulum. Mild degenerative jimenez es of the right SI joint. Atherosclerotic calcification of the visualized arterial vasculature. Pelvi c phleboliths. Degenerative changes of the pubic symphysis. Degenerative changes of the visualized deb mbar spine at L5-S1 with disc space narrowing, endplate sclerosis, anterior osteophytosis and vacuum disc disease. No significant soft tissue swelling or joint effusion is identified. No focal muscular atrophy or karoline ma is identified. No radiopaque foreign body identified. Anterior pelvic wall superficial 2.3 cm hype rdense lesion, probable sebaceous cyst at the level of the pubic symphysis. Small calcifications with in the uterus. IMPRESSION: 1. No acute fracture or dislocation. 2. Mild osteoarthritic changes of the right hip. 3. Anterior pelvic wall superficial to 0.3 cm hyperdense lesion. Probable sebaceous cyst. Correlate clinically. [facility], , 10/08/2024 5:29 PM
[2024-10-08] MEDS: HYDROcodone/APAP 5-325MG 1 EACH TAB PO STA (18:05)
[2024-10-08 18:13] VITALS: BP 178/94; PULSE 76; RESP 18
== END 2024-10-08 18:29 | disposition home or self-care (01) ==
LOC: EC 15:14
DX: M25.551 Pain in right hip (principal); Z87.891 Personal history of nicotine dependence; Z88.1 Allergy status to other antibiotic agents; Z88.2 Allergy status to sulfonamides; Z91.040 Latex allergy status; Z88.8 Allergy status to other drugs, medicaments and biological substances
CPT/HCPCS: 36415; 80053; 85025; 81001; 73700; 99284; 96374; J1100

== ENCOUNTER → 2024-10-10 | Outpatient (CLI) | payer MEDICARE, BC ==
[2024-10-10 16:10] VITALS: BP 106/66; PULSE 68
--- NOTE | 2024-10-10 19:08 | P.PAINPG ---
PQRS Measure Charge Sheet Comment: HISTORY OF PRESENT ILLNESS: A 88 yr old wheelchair bound female w daughter and family friend at side as a referral from Dr Dread Yadav presents today w severe and chronic LBP > 1 yr secondary to radiculopathy, spondylosis and facet arthropathy without myelopathy, R Hip DJD for evaluation. Pt states pain level is provoked at 7 /10 in intensity, constant, localized in the lumbar spine, predominantly axial, achy in character w occasional shooting pain towards the R hip and RLE. Pain is provoked by weight bearing. Pain is alleviated by PT x 6 wks which ended in Jun - Jul 2024, physician guided home stretches daily since Jun 2024, heat, medications, use of a wheelchair for ambulatory assistance, repositioning and rest . Oswestry axial pain score at 36. Edmore 5/325mg caused a headache. PMH: OA, aFib, Breast CA, Dementia, Hyperlipidemia, HTN, Hypothyroidism PSH: Cholecystectomy, Coaptite Injections x2, Lithotripsy, Hemorrhoidectomy, BL Cataract Extraction w Lens Implants, D&C, L Breast Biopsy x2, R CTR, R Knee Arthroscopy, LLE Lipectomy SH: Former tobacco user, Rare ETOH use, No illicit drug use FH: Bro- CA. Sis- DVT. All: See list Meds: See list incl Ibu REVIEW OF ORGAN SYSTEMS: CONSTITUTIONAL: No fevers or chills. No recent weight loss. NEUROLOGICAL: + numbness and tingling along the distal extremities. No seizure disorders or headaches. MUSCULOSKELETAL: + pain PSYCHIATRIC: Denies current depression or suicidal thoughts. Physical Examinations : Constitutional : Cooperative , not in acute distress . Neurologic : Cranial nerve II to XII intact. No focal neurological deficits. Psychiatric : alert & oriented x 3. Matching mood & appropriate affect. Judgment & insight intact. Musculoskeletal : Cervical Spine Motor strength in the deltoid and biceps: Normal right side. Normal Left side Motor strength biceps and the wrist extensors: Normal right side . Normal left side Motor strength in the triceps muscle: Normal right side. Normal left side Deep tendon reflexes: Normal at the biceps. Normal at Brachioradialis. Normal at triceps Vertebral body tenderness to deep palpation over Cervical facet loading test: positive bilaterally Spurling test: positive bilaterally Neck distraction test: positive bilaterally Jamia sign: positive bilaterally Lumbar spine Motor strength lower extremities ,thigh and legs 5/5 Right side , 5/5 Left side Deep tendon reflexes : Normal Knee Jerk. Normal Ankle Jerk Vertebral body tenderness over Carbajal Test positive Lumbar facet Loading Test: positive Right / positive Left Range of motion of the lumbar spine Flexion 30 degrees, extension 10 degrees Straight Leg Raise test: Left/ Right positive at degrees Randa test: positive right / positive left. Severe tenderness over the Sacroiliac joint on the Right / Left sides Gaenslen test: positive bilaterally Seated flexion test: positive bilaterally. Sacral spine : Severe tenderness over the Sacroiliac joint: right side / left side Range of motion: Flexion of the lumbar spine <60 degrees Range of motion: Extension of the lumbar spine <20 degrees Gaenslen's Test positive Randa test: positive right side / left side Thigh Thrust Test Sacral Thrust Test Imaging: X ray lumbar spine from 06/29/[address] non contrast Pelvis/ Abdomen from 10/08/2024 reviewed Assessment/ Plan : Lumbar radiculopathy, R hip DJD Recommendation of MRI lumbar spine M54.16 and short course of Tramadol 50mg #12 NR. Use, side effects, adverse reactions, safe storage discussed. All questions answered. I have spent greater than 30 minutes on patient care today. Dr Crawford was available by phone for the evaluation of this patient. The time was used to review the medical records including relevant urine studies and Prescription history (MAPs), review of the available imaging, evaluation and examination of the patient, coordination of care with the medical staff and if applicable referring physicians, as well as creation of the medical record PQRS Narrative: Smoking Status Former smoker Hx Alcohol Use (MH) Yes Home Medications: Ambulatory Orders Cyanocobalamin [Vitamin B-12] 500 mcg PO DAILY@1200 03/10/16 Apixaban [Eliquis] 2.5 mg PO DIRECTED 05/11/23 Metoprolol Tartrate [Lopressor] 12.5 mg PO BID 05/11/23 Vit C/E/Zn/Coppr/Lutein/Zeaxan [Preservision Areds 2 Softgel] 1 cap PO BID 08/01/23 Cholecalciferol (Vitamin D3) [Vitamin D3 (50 Mcg = 2000 Iu)] 50 mcg PO DAILY@1200 10/08/24 Dicyclomine [Bentyl] 10 mg PO TID 10/08/24 HYDROcodone/APAP 5-325MG [Edmore 5] 1 each PO Q6HR PRN #12 tab 10/08/24 Letrozole [Femara] 2.5 mg PO HS 10/08/24 Levothyroxine Sodium [Synthroid] 100 mcg PO DAILY 10/08/24 Magnesium Oxide [Magnesium] 500 mg PO DAILY@1200 10/08/24 Pregabalin [Lyrica] 75 mg PO BID 10/08/24 Controlled Substance Measures - Controlled Substance Measures Is patient prescribed a controlled substance at discharge?: Yes When asked, does pt state using other controlled substances?: No If prescribed controlled substance>3 days was MAPS reviewed?: Prescribed <3 Days
== END ==
LOC: PNWHC3 12:43
PROVIDERS: ATTEND Specialist
DX: M47.26 Other spondylosis with radiculopathy, lumbar region (principal); M16.11 Unilateral primary osteoarthritis, right hip; Z87.891 Personal history of nicotine dependence; Z91.040 Latex allergy status; Z88.2 Allergy status to sulfonamides; Z88.1 Allergy status to other antibiotic agents
CPT/HCPCS: 99212

== ENCOUNTER → 2024-10-16 | Outpatient (CLI) | payer MEDICARE, BC ==
--- NOTE | 2024-10-16 18:10 | MR ---
INDICATION: Patient age:Female; 88 years old; Reason for study: M54.16 RADICULOPATHY; PHH. COMPARISONS: Lumbar spine radiograph 06/29/2023, CT abdomen and pelvis 03/16/2022, MRI lumbar spine 01/15. TECHNIQUE: Multi planar, multi sequence imaging was performed utilizing: T1-weighted, T2-weighted, a nd turbo inversion recovery imaging of the lumbar spine. The patient was not given contrast. FINDINGS: Remote central superior endplate compression deformities of the L1 and L2 vertebral bodies . Approximately 5% height loss with no retropulsion. Diffuse heterogenous bone marrow signal. Grade 1 retrolisthesis of L5 on S1. Schmorl's node involving the spring plate of the L2 vertebral body. Mult ilevel anterior osteophytosis. Type I Modic changes involving the endplates around the L3-L4 and L4-L 5 discs. Multilevel disc desiccation is present. The conus medullaris and the distal spinal cord do appear unremarkable with regards to their signal intensity and morphology. Degenerative changes bilat eral SI joints. T12-L1: No significant disc pathology. No central canal stenosis. Ligamentum flavum buckling and bila teral facet arthropathy. No significant neural foraminal stenosis. L1-L2: Broad-based disc bulge with ligamentum flavum buckling and bilateral facet drop to contribute to mild central canal stenosis. Mild bilateral neural foraminal stenosis.. L2-L3: Broad-based disc bulge and ligamentum flavum buckling and bilateral facet arthropathy contrib quinault to mild central canal stenosis. Mild left and minimal right neural foraminal stenosis. L3-L4: Broad-based disc bulge with ligamentum flavum buckling and bilateral facet arthropathy contri bute to mild central canal stenosis. There is close approximation of the exiting L3 nerve root on the right. Moderate right neural foraminal stenosis. Minimal left neural foraminal stenosis.. L4-L5: Broad-based disc bulge with ligamentum flavum buckling and bilateral facet arthropathy contrib quinault to moderate to severe central canal stenosis. [id number] right and moderate left neural for aminal stenosis. L5-S1: Central disc protrusion with minimal effacement of the anterior thecal sac. Ligamentum flavum buckling of bilateral facet arthropathy. No significant central canal stenosis. Minimal bilateral jose ral foraminal stenosis. Other significant findings: Ectasia of the distal abdominal aorta measured 2.7 cm. IMPRESSION: Progression of moderate multilevel disc degeneration with associated osteoarthritic changes as descri bed above. Pronounced at L4-L5 with moderate to severe central canal stenosis. Central disc protrusio n at L5-S1. [facility], , 10/16/2024 6:07 PM
== END | disposition home or self-care (01) ==
LOC: RADMRIMAIN 14:27
PROVIDERS: ATTEND Specialist
DX: M48.061 Spinal stenosis, lumbar region without neurogenic claudication (principal); M51.17 Intervertebral disc disorders with radiculopathy, lumbosacral region; M47.27 Other spondylosis with radiculopathy, lumbosacral region
CPT/HCPCS: 72148